=== PATIENT | female | born 1970 | race Caucasian/White ===

== ENCOUNTER 2025-03-07 15:26 | Emergency (ER) | payer OTHER, SELFPAY ==
[2025-03-07 15:27] VITALS: BP 130/100; PULSE 94; RESP 16; TEMP 36.7; O2SAT 100; BMI 30.4
--- NOTE | 2025-03-07 15:51 | EX.ED.DYSGE1 ---
HPI <QAMAR Walden - Last Filed: 03/07/25 16:23> History of Present Illness Chief Complaint: Rash Narrative Narrative: 54-year-old female presents with a rash that started 2 weeks ago. Her skin will feel hot and itchy and then she will develop a red raised area that looks like hives. Her skin will go completely back to normal within an hour or so unless she has scratched it to the point left a braydon. She gets these areas of rash all over her body. It feels like when she had stress-induced hives years ago but she states she is not currently stressed. She has been taking pantoprazole for years and is on no other medications. Denies other new exposures. Denies fever chills nausea vomiting or chest pain or shortness of breath. PFSH <QAMAR Walden - Last Filed: 03/07/25 16:23> [facility] Medical History (Updated 03/07/25 @ 15:58 by QAMAR Walden) Stomach ulcer Renal agenesis Home Medications ?Medication ?Instructions ?Recorded ?Last Taken ?Type pantoprazole 40 mg tablet,delayed 40 mg PO DAILY 03/07/25 Unknown History release Allergy/AdvReac Type Severity Reaction Status Date / Time aspirin Allergy Rash Verified 05/27/15 17:59 codeine Allergy Rash Verified 05/27/15 17:59 Surgical History (Updated 03/07/25 @ 15:46 by Phuong Lai) Hx of left knee surgery Hx of cervical spine surgery Hx of cholecystectomy Social History Smoking Status: Current every day smoker tobacco type: e-cigarettes ROS <QAMAR Walden - Last Filed: 03/07/25 16:23> ROS ED ROS Narrative Constitutional: Negative for fever, chills, malaise. CVS: Negative for chest pain. Respiratory: Negative for shortness of breath. GI: Negative for abdominal pain, nausea, vomiting, diarrhea. EXAM <QAMAR Walden - Last Filed: 03/07/25 16:23> Physical Exam Narrative Exam Narrative: CONST: Patient sitting in no acute distress. EYES: Normal inspection. ENT: Normal inspection, moist mucous membranes. NECK: Normal inspection. RESP: No respiratory distress, CTAB. CVS: Regular rate and rhythm, no murmur, no gallop. SKIN: Scattered red raised area that look like urticaria with overlying excoriations across her neck thorax and upper extremities. No significant erythema or tenderness. No bullae. No lymphangitic streaking. No skin sloughing. EXTREMITIES: Normal appearance. NEURO: Alert and answering questions appropriately. PSYCH: Normal affect. Const Vital Signs: 03/07/25 15:27 Temperature 98.1 F Temperature Source Oral Pulse Rate 94 Respiratory Rate 16 Blood Pressure 130/100 H Blood Pressure Mean 110 Pulse Ox 100 Oxygen Delivery Method Room Air <Dr. Miguel Regalado, - Last Filed: 03/07/25 16:11> Physical Exam Const Vital Signs: 03/07/25 15:27 Temperature 98.1 F Temperature Source Oral Pulse Rate 94 Respiratory Rate 16 Blood Pressure 130/100 H Blood Pressure Mean 110 Pulse Ox 100 Oxygen Delivery Method Room Air MDM <QAMAR Walden - Last Filed: 03/07/25 16:23> [facility] MDM Narrative Medical decision making narrative: Patient has hives over the last 2 weeks. No clear exposure. No new medications. She states they come and go. She looks well nontoxic. Vital signs stable. Exam is consistent with urticaria. She has no systemic symptoms. She was treated with IM Kenalog and should continue [id number] allergy medication as needed. She was discharged in stable condition. <Dr. Miguel Regalado, - Last Filed: 03/07/25 16:11> [facility] Treatment and Re-Evaluation :: I have personally performed a face to face assessment of the patient and have reviewed the SEAN Note. I performed a substantive portion of the visit including all aspects of the following. My carpio findings include: History: Patient presents with hives that began 2 weeks ago. Patient states they are constant. Patient states they are generalized. Patient states they are very pruritic. Patient states she applied hydrocortisone cream which seemed to help. Patient states she ALSO took some Benadryl which seemed to help. Patient denies any new soaps, foods, shampoos, laundry detergents, or fabric softeners. Patient denies any other new exposures. Patient denies any difficulty breathing or difficulty swallowing. Exam: Vital signs are stable. Patient is afebrile. Patient is in no acute distress. Oral mucosa is pink and moist. Oropharynx is clear. Airway is patent. Neck is supple. Trachea is midline. There is no JVD or lymphadenopathy. Heart was regular rate and rhythm. Lungs are clear and equal bilaterally. Abdomen is soft. Bowel sounds are normal. There is no tenderness. Skin is warm and dry. There are diffuse patchy urticaria noted. There are no vesicles or pustules. There are no petechia noted. There is no involvement of mucous membranes. There is no involvement of the palms. Medical Decision Making: The patient was advised that this is an urticarial rash. Patient was given an injection of Kenalog here. Patient was instructed to use Claritin, Zyrtec, or Benadryl as needed for itching. Patient was instructed to use hydrocortisone cream as needed. Patient was instructed to follow-up with her primary care physician in 5 to 7 days. Patient was advised she may need to see an cancer registry coordinator to determine what is the cause of her allergy. Patient understood and was agreeable with plan. All questions were answered. Discharge Plan Triage Chief Complaint: Rash ED Midlevel Provider: Shahnaz Parnell ED Provider: Miguel Regalado Dx/Rx/DC Orders Clinical Impression: Urticaria Instructions: ED Hives (Adult) Prescriptions: No Action pantoprazole 40 mg tablet,delayed release (DR/EC) 40 mg PO DAILY Primary Care Provider: Care Physician,No Primary Referrals: Maicol Bird MD [Non-Staff] - Activity Restrictions/Additional Instructions: You can continue Benadryl every 6 hours as needed. Follow-up with your primary care doctor and if symptoms persist you may need to get allergy testing. Print Language: Swazi Disposition Disposition: Home, Self Care
[2025-03-07] MEDS: Triamcinolone Acetonide 40 MG/ML Vial IM (16:19)
[2025-03-07 16:23] VITALS: BP 146/76; PULSE 72; RESP 16; TEMP 36.8; O2SAT 100
== END 2025-03-07 16:38 | disposition home or self-care (01) ==
PROVIDERS: Emergency Provider Emergency Medicine; Visit Provider Emergency Medicine
DX: L50.9 Urticaria, unspecified (principal); Z79.899 Other long term (current) drug therapy; F17.290 Nicotine dependence, other tobacco product, uncomplicated
CPT/HCPCS: 96372; 99282

== ENCOUNTER 2025-04-13 12:42 | Emergency (ER) | payer OTHER, SELFPAY ==
[2025-04-13 12:43] VITALS: BP 151/91; PULSE 99; RESP 16; TEMP 36.6; O2SAT 100; BMI 29.7
[2025-04-13 13:43] LABS: Absolute Lymphocyte Count 2.56 X10^3/uL (0.83-4.51); Absolute Neutrophil Count 7.5 X10^3/uL (2.0-7.7); Basophil# 0.07 X10^3/uL; Basophil% 0.6 % (0-1); Eosinophil# 0.59 X10^3/uL; Eosinophils% 4.9 % (0-5); Hematocrit 40.2 % (37-47); Hemoglobin 13.6 g/dL (12.0-15.0); Lymphocyte # 2.56 X10^3/ul (0.83-4.51); Lymphocyte % 21.5 % (19-41); Mean Corp Hgb Conc 33.8 g/dL (32-36); Mean Corpuscular Hgb 32.5 pg (27.0-32.0); Mean Corpuscular Volume 95.9 fL (81-99); Mean Platelet Vol. 9.4 fl (6.2-12.0); Monocyte# 1.19 X10^3/uL; NRBC Flagged by Analyzer 0 % (0-5); Neutrophil # 7.49 X10^3/uL (2.7-7.7); Neutrophil % 62.7 % (47-70); Platelet Count 280 K/mm3 (150-450); RBC Distribution Width CV 12.9 % (11.6-14.6); RBC Distribution Width SD 45.6 fl (35.1-43.9); Red Blood Count 4.19 M/mm3 (4.2-5.4); White Blood Count 11.9 K/mm3 (4.4-11.0)
--- NOTE | 2025-04-13 13:51 | ED.VIS.GI ---
HPI <QAMAR Cornell - Last Filed: 04/13/25 19:37> HPI - GI History of Present Illness Chief Complaint: Abd Pain Narrative Narrative: Patient presenting today with epigastric and right upper quadrant abdominal pain she has had over the past month. She reports that she has been in pain consistently but has had about 6 episodes of, pain attacks where her pain will be severe and then subside. Nothing seems to make her pain worse. She does admit to alcohol use, she drinks about a sixpack of twisted teas about 3 times per week. She also endorses a history of a gastric ulcer several years ago. She is supposed to be taking Protonix but did not feel like it was helping so she discontinued taking it. Additionally, she reports dark-colored stools over the past month. However, she thinks this is due to a herbal supplement that she has been taking. She denies history of GI bleed. She is on no blood thinners. Previous abdominal surgeries include cholecystectomy about 5 years ago. PFSH <QAMAR Cornell - Last Filed: 04/13/25 19:37> [facility] Medical History Stomach ulcer Renal agenesis Home Medications ?Medication ?Instructions ?Recorded ?Last Taken ?Type famotidine 20 mg tablet (Acid 20 mg PO DAILY 04/13/25 04/13/25 History Controller) fexofenadine 180 mg tablet 180 mg PO DAILY 04/13/25 04/13/25 History (Elli Hives) ibuprofen 200 mg tablet (Advil) 400 mg PO Q6H PRN fever or pain 04/13/25 04/13/25 History ondansetron 4 mg disintegrating 4 mg PO Q8H PRN PRN Nausea #10 tabs 04/13/25 Unknown Rx tablet Allergy/AdvReac Type Severity Reaction Status Date / Time aspirin Allergy Rash Verified 04/13/25 12:43 codeine Allergy Rash Verified 04/13/25 12:43 Surgical History Hx of left knee surgery Hx of cervical spine surgery Hx of cholecystectomy Social History Smoking Status: Current every day smoker tobacco type: e-cigarettes ROS <QAMAR Cornell - Last Filed: 04/13/25 19:37> ROS ED Constitutional Constitutional ED: Denies chills or fever(s) Cardiovascular Cardiovascular: Denies chest pain Respiratory/Chest Respiratory/Chest: Denies dyspnea Gastrointestinal Gastrointestinal: Reports abdominal pain, nausea and vomiting; Denies diarrhea Genitourinary Genitourinary ED: Denies dysuria, hematuria or urinary urgency Musculoskeletal Musculoskeletal: Denies arthralgias or myalgias EXAM <QAMAR Cornell - Last Filed: 04/13/25 19:37> Physical Exam Const Vital Signs: 04/13/25 12:43 04/13/25 14:43 04/13/25 15:33 Temperature 97.9 F 98.3 F Temperature Source Oral Pulse Rate 99 88 86 Respiratory Rate 16 12 12 Blood Pressure 151/91 H 147/82 H 141/88 H Blood Pressure Mean 111 103 105 Pulse Ox 100 97 98 Oxygen Delivery Method Room Air Room Air Positive well nourished, well developed and no apparent distress General Appearance ED: well developed HEENT Reports normocephalic and head/scalp atraumatic Mouth ED: Yes moist mucous membranes normal Eyes PERRL and EOMs intact bilaterally Neck full ROM and supple Chest Wall inspection of chest normal Resp normal respiratory effort and clear to auscultation bilaterally Cardio regular rate and regular rhythm GI soft to palpation, non-distended and no masses GI Narrative: Tenderness to palpation to the right upper quadrant and epigastrium. Palpation: Negative for guarding, rigid, hepatomegaly or splenomegaly Back/Spine normal ROM and normal to inspection Extremity normal to inspection and full ROM Neuro oriented x3, CN's II-XII intact bilaterally, moves all extremities, no focal motor deficits and no sensory deficits noted Sensorium / Orientation: awake and alert Psych mental status grossly normal and thought process normal Skin no rashes or lesions noted and no wounds <Dr. Raphael Cheng MD - Last Filed: 04/13/25 20:20> Physical Exam Const Vital Signs: 04/13/25 12:43 04/13/25 14:43 04/13/25 15:33 Temperature 97.9 F 98.3 F Temperature Source Oral Pulse Rate 99 88 86 Respiratory Rate 16 12 12 Blood Pressure 151/91 H 147/82 H 141/88 H Blood Pressure Mean 111 103 105 Pulse Ox 100 97 98 Oxygen Delivery Method Room Air Room Air [facility] <QAMAR Cornell - Last Filed: 04/13/25 19:37> [facility] Narrative Medical decision making narrative: Patient presenting today with epigastric and right upper quadrant pain that has been ongoing for about a month. She does have associated nausea and vomiting off and on. She has a history of a cholecystectomy. She does admit to frequent alcohol use. Labs were obtained, WBC is elevated at 11.9, AST mildly elevated at 33. She was originally given Toradol which did not improve her symptoms, she was then given a GI cocktail here which did improve her symptoms. I suspect she likely has gastritis. She is supposed to be taking Protonix but has not been taking it recently. Recommended she begin taking her Protonix again and I will refer her to GI. Additionally, she reported that she was having black-colored stools over the past month, she thinks it is because of this herbal supplement she has been taking. I did perform a rectal exam with a nurse in the room. There was no stool when I perform the exam for us to test on a Hemoccult. She did not have any bowel movements here. However, her hemoglobin is 13.6, lower suspicion for GI bleed. She does not have any urinary symptoms to indicate a UTI. Recommended she follow-up with GI and she will be discharged home in stable condition. Dr. Cheng: I have personally performed a face to face assessment of the patient and have reviewed the SEAN Note. I performed a substantive portion of the visit including all aspects of the following. My carpio findings include: History is [ Remarkable for cholecystectomy, many years ago who presents with upper abdominal pain epigastric right upper quadrant that does not radiate through to her back. This associate with nausea and vomiting. She denies coffee-ground emesis or hematemesis. Friend thought it may have appeared like coffee grounds yesterday. She does admit to alcohol use. She denies cardiac or respiratory symptoms. She denies black or maroon-colored stool. She denies mucus or bright red blood in her stool.] Exam is vital signs are noted and remarkable for elevated blood pressure. Patient's BMI is 29.8. She does not appear in any significant discomfort. HEENT exam is remarkable dry mucosa. Lungs are clear to auscultation. Heart is regular. Rate is normal. There is no murmur, gallop or rub. Abdomen is soft minimal tenderness there is no guarding or rebound tenderness. Negative clinical De La Garza sign. No evidence of umbilical or ventral hernia. Alert oriented x 3. Medical Decision Making: Patient with upper abdominal pain which may represent alcoholic gastritis, duodenitis, alcoholic liver disease abdominal pain of unknown etiology doubt choledocholithiasis patient was initially treated with ketorolac. There was no improvement. Subsequent was given a GI cocktail. Her workup included a CBC, comprehensive metabolic panel and lipase. Other additions or changes: Prior records were reviewed. Remarkable for cholecystitis, alcohol use Lab Data Labs: Laboratory Results - last 24 hr 04/13/25 13:31 WBC 11.9 H RBC 4.19 L Hgb 13.6 Hct 40.2 MCV 95.9 MCH 32.5 H MCHC 33.8 RDW Std Deviation 45.6 H RDW Coeff of Anita 12.9 Plt Count 280 MPV 9.4 Immature Gran % (Auto) 0.300 Neut % (Auto) 62.7 Lymph % (Auto) 21.5 [place] % (Auto) 10.0 Eos % (Auto) 4.9 Baso % (Auto) 0.6 Absolute Neuts (auto) 7.5 Absolute Lymphs (auto) 2.56 Nucleated RBC % 0 Sodium 141 Potassium 4.2 Chloride 102 Carbon Dioxide 25.1 Anion Gap 14 BUN 17 Creatinine 1.06 Estim Creat Clear Calc 60.00 Est GFR (MDRD) Non-Af 63 BUN/Creatinine Ratio 16.4 Glucose 91 Calcium 9.8 Total Bilirubin 0.55 AST 33 H ALT 20 Alkaline Phosphatase 109 H Total Protein 7.1 Albumin 4.2 Globulin 2.9 Albumin/Globulin Ratio 1.5 Lipase 54 <Dr. Raphael Cheng MD - Last Filed: 04/13/25 20:20> [facility] MDM Narrative Medical decision making narrative: Dr. Chun: I have personally performed a face to face assessment of the patient and have reviewed the SEAN Note. I performed a substantive portion of the visit including all aspects of the following. My carpio findings include: History is [ Remarkable for cholecystectomy, many years ago who presents with upper abdominal pain epigastric right upper quadrant that does not radiate through to her back. This associate with nausea and vomiting. She denies coffee-ground emesis or hematemesis. Friend thought it may have appeared like coffee grounds yesterday. She does admit to alcohol use. She denies cardiac or respiratory symptoms. She denies black or maroon-colored stool. She denies mucus or bright red blood in her stool.] Exam is vital signs are noted and remarkable for elevated blood pressure. Patient's BMI is 29.8. She does not appear in any significant discomfort. HEENT exam is remarkable dry mucosa. Lungs are clear to auscultation. Heart is regular. Rate is normal. There is no murmur, gallop or rub. Abdomen is soft minimal tenderness there is no guarding or rebound tenderness. Negative clinical De La Garza sign. No evidence of umbilical or ventral hernia. Alert oriented x 3. Medical Decision Making: Patient with upper abdominal pain which may represent alcoholic gastritis, duodenitis, alcoholic liver disease abdominal pain of unknown etiology doubt choledocholithiasis patient was initially treated with ketorolac. There was no improvement. Subsequent was given a GI cocktail. Her workup included a CBC, comprehensive metabolic panel and lipase. Other additions or changes: Prior records were reviewed. Remarkable for cholecystitis, alcohol use History & Record Review Additional record(s) reviewed:: Prior outpatient record, Prior ED visit and Prior labs Lab Data Attestation: I reviewed the patient's lab results. Lab results narrative: White count slightly elevated 11.9 thousand with no shift. H&H is and indices are normal. Comprehensive metabolic panel reveals slight elevation of alkaline phosphatase at 109 and AST is elevated 33. Patient does admit to alcohol use. Lipase is normal. Labs: Laboratory Results - last 24 hr 04/13/25 13:31 WBC 11.9 H RBC 4.19 L Hgb 13.6 Hct 40.2 MCV 95.9 MCH 32.5 H MCHC 33.8 RDW Std Deviation 45.6 H RDW Coeff of Anita 12.9 Plt Count 280 MPV 9.4 Immature Gran % (Auto) 0.300 Neut % (Auto) 62.7 Lymph % (Auto) 21.5 [place] % (Auto) 10.0 Eos % (Auto) 4.9 Baso % (Auto) 0.6 Absolute Neuts (auto) 7.5 Absolute Lymphs (auto) 2.56 Nucleated RBC % 0 Sodium 141 Potassium 4.2 Chloride 102 Carbon Dioxide 25.1 Anion Gap 14 BUN 17 Creatinine 1.06 Estim Creat Clear Calc 60.00 Est GFR (MDRD) Non-Af 63 BUN/Creatinine Ratio 16.4 Glucose 91 Calcium 9.8 Total Bilirubin 0.55 AST 33 H ALT 20 Alkaline Phosphatase 109 H Total Protein 7.1 Albumin 4.2 Globulin 2.9 Albumin/Globulin Ratio 1.5 Lipase 54 Discharge Plan Triage Chief Complaint: Abd Pain ED Midlevel Provider: Carly Deluca ED Provider: Raphael Cheng Dx/Rx/DC Orders Clinical Impression: Abdominal pain, Nausea & vomiting Instructions: Abdominal Pain, ED Vomiting (Adult) Prescriptions: New ondansetron 4 mg tablet,disintegrating 4 mg PO Q8H PRN PRN (Reason: Nausea) Qty: 10 0RF No Action fexofenadine [Elli Hives] 180 mg tablet 180 mg PO DAILY famotidine [Acid Controller] 20 mg tablet 20 mg PO DAILY ibuprofen [Advil] 200 mg tablet 400 mg PO Q6H PRN (Reason: fever or pain) Primary Care Provider: Care Physician,No Primary Referrals: Friend,DO Eder [Med Staff - Active Staff] - 5-7 Days Care Physician,No Primary [Primary Care Provider] - Activity Restrictions/Additional Instructions: Follow-up with GI and return for any other concerns. Print Language: Stateless Disposition Disposition: Home, Self Care Discharge Date/Time: 04/13/25 15:37
[2025-04-13] MEDS: Ketorolac 15 MG/ML Vial IV (13:53)
[2025-04-13] MEDS: Ondansetron 4 MG/2 ML Vial IV (13:53)
--- OUTSIDE RECORDS SUMMARY | 2025-04-13 13:55 | XMS RPT_ITS | CCD ---
Author Organization [facility] Care Team Providers Care Supervisor Felling Bucking Name Role Phone Tom Wiggins Primary Care Provider PROVIDER, UNKNOWN Referring Unavailable Lizett De La Paz Attending Unavailable Petrilla, Tom Primary Care Unavailable Petrilla, Tom Attending Unavailable PROVIDER, UNKNOWN Referring Unavailable Petrilla, Tom Primary Care Unavailable PROVIDER, UNKNOWN Referring Unavailable Petrilla, Tom Primary Care Unavailable Petrilla, Tom Attending Unavailable PROVIDER, UNKNOWN Referring Unavailable KAMILLA FLOWERS Attending Unavailable Naomia, Tom Primary Care Unavailable PROVIDER, UNKNOWN Referring Unavailable KAMILLA FLOWERS Attending Unavailable Petrilla, Tom Primary Care Unavailable JARACH, MAZEN Referring Unavailable JARACH, MAZEN Primary Care Unavailable JARACH, MAZEN Referring Unavailable JARACH, MAZEN Primary Care Unavailable JARACH, MAZEN Referring Unavailable PETRILLA, TOM F Primary Care Unavailable MaribethTom law DO F Primary Care Provider Dr. Miguel Regalado DO Emergency Provider Care Physician, No Primary Primary Care Provider Unavailable Miguel Regalado Attending Unavailable Care Physician, No Primary Primary Care Unava ilable Allergies Allergy Classification Reported Allergen(s) Allergy Type Date of Onset Reaction(s) Facility Aluminum aspirin (4 sources) [facility]um [facility]) [facility] Substance [facility] Opio[facility] Agonists (4 sources) Codeine Drug All[facility] (6 sources) Aluminum aspirin; Translations: [ASPIRIN] Drug Allergy 5 [place] (7 sources) Codeine; Translations: [CODEINE] Drug Allergy 5 [place] (6 sources) Latex; Translations: [LATEX] Propensity to adverse reactions to drug 5 [place] (1 source) Aspirin Drug Allergy 5 [facility] (1 source) Aspirin Drug Allergy 5 [facility] (1 source) Codeine Drug Allergy 5 [facility] Medications Current Medications Medication Drug Class(es) Dates Sig (Normalized) Sig (Original) acetaminophen 325 mg / HYDROcodone bitartrate 5 mg oral tablet (5 sources) Opioid Agonist Start: 02-22-2021 End: 02-25-2021 HYDROcodone-acetam inophen (NORCO) 5-325 MG per tablet Indications: RUQ abdominal pain Take 1 tablet by mouth every 6 hours as needed for Pain for up to 3 days. Intended supply: 5 days. Take lowest dose possible to manage pain 20 tablet 0 02/22/2021 02/25/2021 Active Start: 05-27-2015 End: 03-07-2025 Hydrocodone-Acetaminophen 1 TABLET tablet Discontinued 1 - 2 {tbl} PO EVERY 4 HOURS NEEDED as needed for Pain May 27, 2015 12:00am March 07, 2025 3:44pm acetaminophen 325 mg / oxyCODONE hydrochloride 5 mg oral tablet (1 source) Opioid Agonist Start: 03-02-2021 End: 03-07-2021 take 1 tablet by mouth every six hours as needed for pain oxyCODONE-acetaminophen (PERCOCET) 5-325 MG per tablet Indications: Gallbladder sludge , Biliary colic Take 1 tablet by mouth every 6 hours as needed for Pain for up to 5 days. 10 tablet 0 03/02/2021 03/07/2021 Active [id number] 200 actuat albuterol 0.09 mg/actuat metered dose inhaler (1 source) beta2-Adrenergic Agonist Start: 01-07-2022 take 2 puff(s) by inhalation four times daily as needed for wheezing albuterol sulfate HFA (VENTOLIN HFA) 108 (90 Base) MCG/ACT inhaler Inhale 2 puffs into the lungs 4 times daily as needed for Wheezing 18 g 0 01/07/2022 Active ALPRAZolam 0.25 mg disintegrating oral tablet (1 source) Benzodiazepine Start: 03-02-2021 ALPRAZolam (NIRAVAM) dissolvable tablet 0.25 mg calcium chloride 0.0014 meq/ml / potassium chloride 0.004 meq/ml / sodium chloride 0.103 meq/ml / sodium lactate 0.028 meq/ml injectable solution (1 source) Start: 03-02-2021 lactated ringers infusion celecoxib 200 mg oral capsule (2 sources) Nonsteroidal Anti-inflammatory Drug Start: 06-23-2022 take 1 capsule by mouth once daily celecoxib (CELEBREX) 200 MG capsule Take 1 capsule by mouth daily 60 capsule 0 06/23/2022 Active cephalexin 500 mg oral capsule (2 sources) Cephalosporin Antibacterial Start: 08-11-2022 End: 08-16-2022 take 1 capsule by mouth three times daily cephALEXin (KEFLEX) 500 MG capsule Take 1 capsule by mouth 3 times daily for 5 days 15 capsule 0 08/11/2022 08/16/2022 Active 1 ml diphenhydrAMINE hydrochloride 50 mg/ml cartridge (1 source) Histamine-1 Receptor Antagonist Start: 03-02-2021 End: 03-02-2021 diphenhydrAMINE (BENADRYL) injection 12.5 mg 1 ml hydrALAZINE hydrochloride 20 mg/ml injection (1 source) Arteriolar Vasodilator Start: 03-02-2021 hydrALAZINE (APRESOLINE) injection 5 mg 1 ml HYDROmorphone hydrochloride 1 mg/ml cartridge (4 sources) Opioid Agonist Start: 03-02-2021 HYDROmorphone (DILAUDID) injection 1 mg Start: 03-02-2021 HYDROmorphone (DILAUDID) injection 0.5 mg Start: 03-02-2021 HYDROmorphone (DILAUDID) injection 0.25 mg labetalol hydrochloride 5 mg/ml injectable solution (1 source) beta-Adrenergic Jody Start: 03-02-2021 labetalol (NORMODYNE;TRANDATE) injection 5 mg levoFLOXacin 500 mg oral tablet (1 source) Quinolone Antimicrobial Start: 10-08-2020 End: 10-18-2020 take 1 tablet by mouth once daily levoFLOXacin (LEVAQUIN) 500 MG tablet Take 1 tablet by mouth daily for 10 days 10 tablet 0 10/08/2020 10/18/2020 Active 10 ml lidocaine hydrochloride 10 mg/ml injection (1 source) Antiarrhythmic, Amide Local Anesthetic Start: 03-02-2021 End: 03-02-2021 lidocaine PF 1 % injection 1 mL meloxicam 15 mg oral tablet (2 sources) Nonsteroidal Anti-inflammatory Drug Start: 11-17-2021 take 1 tablet by mouth once daily meloxicam (MOBIC) 15 MG tablet Take 1 tablet by mouth daily 30 tablet 3 11/17/2021 Active 1 ml meperidine hydrochloride 25 mg/ml cartridge (1 source) Opioid Agonist Start: 03-02-2021 meperidine (DEMEROL) injection 12.5 mg 2 ml ondansetron 2 mg/ml injection (6 sources) Serotonin-3 Receptor Antagonist Start: 03-02-2021 End: 03-02-2021 ondansetron (ZOFRAN) injection 4 mg Start: 02-22-2021 End: 02-22-2021 ondansetron (ZOFRAN) injecti on 4 mg Start: 02-22-2021 take 1 tablet by jad th three times daily as needed for nausea ondansetron (ZOFRAN) 4 MG tablet Take 1 tablet by mouth 3 times daily as needed for Nausea or Vomiting 15 tablet 0 02/22/2021 Suspended oxyCODONE (1 source) Opioid Agonist Start: 03-02-2021 End: 03-02-2021 oxyCODONE (ROXICODONE) immediate release tablet 5 mg pantoprazole 40 mg delayed release oral tablet (1 source) Proton Pump Inhibitor Start: 03-07-2025 take 1 tablet by mouth once daily Pantoprazole 40 mg tablet,delayed release (DR/EC) Active 40 mg PO DAILY March 07, 2025 12:00am phenazopyridine hydrochloride 100 mg oral tablet (2 sources) Start: 08-11-2022 End: 08-14-2022 take 1 tablet by mouth three times daily as needed for pain phenazopyridine (PYRIDIUM) 100 MG tablet Take 1 tablet by mouth 3 times daily as needed for Pain (dysuria) 10 tablet 0 08/11/2022 08/14/2022 Active Start: 08-11-2022 End: 08-11-2022 phenazopyridine (PYRIDIUM) t ablet 200 mg predniSONE 50 mg oral tablet (1 source) Start: 01-07-2022 End: 01-12-2022 take 1 tablet by mouth once daily predniSONE (DELTASONE) 50 MG tablet Take 1 tablet by mouth daily for 5 days 5 tablet 0 01/07/2022 01/12/2022 Active 1 ml promethazine hydrochloride 25 mg/ml injection (1 source) Phenothiazine Start: 03-02-2021 End: 03-02-2021 promethazine (PHENERGAN) injection 6.25 mg sodium chloride flush 0.9 % injection 3 mL (2 sources) Start: 08-10-2022 sodium chlorid e flush 0.9 % injection 3 mL Start: 02-22-2021 sodium chlorid e flush 0.9 % injection 3 mL tiZANidine 4 mg oral tablet (2 sources) Central alpha-2 Adrenergic Agonist Start: 06-23-2022 take 1 tablet by mouth three times daily tiZANidine (ZANAFLEX) 4 MG tablet Take 1 tablet by mouth 3 times daily 21 tablet 0 06/23/2022 Active Completed/Discontinued Medications Medication Drug Class(es) Dates Sig (Normalized) Sig (Original) acetaminophen 500 mg oral tablet (10 sources) Start: 03-02-2021 End: 03-02-2021 acetaminophen (TYLENOL) tablet 1,000 mg take 1 tablet by jad th every six hours as needed for pain acetaminophen (TYLENOL) 500 MG tablet Ta ke 500 mg by mouth every 6 hours as needed for Pain 0 Active take 650 mg rectal r oute every four hours as needed for fever acetaminophen (TYLENOL) [address] 650 mg rectally every 4 hours as needed for Fever 0 Active ceFAZolin (ANCEF) 2000 mg in dextrose 5 % 100 mL IVPB (1 source) Start: 03-02-2021 End: 03-02-2021 ceFAZolin (ANCEF) 2000 mg in dextrose 5 % 100 mL IVPB Dexamethasone (1 source) Corticosteroid Start: 01-07-2022 End: 01-07-2022 dexamethasone (DECADRON) tablet 6 mg famotidine 20 mg oral tablet (1 source) Histamine-2 Receptor Antagonist Start: 03-02-2021 End: 03-02-2021 famotidine (PEPCID) tablet 20 mg ibuprofen 600 mg oral tablet (5 sources) Nonsteroidal Anti-inflammatory Drug Start: 08-10-2022 End: 08-10-2022 ibuprofen (ADVIL;MOTRIN) tablet 600 mg take 1 tablet by jad th every six hours as needed for pain ibuprofen (ADVIL;MOTRIN) 800 MG tablet T jacob 800 mg by mouth every 6 hours as needed for Pain 0 Suspended indocyanine green (IC-GREEN) syringe 2.5 mg (1 source) Start: 03-02-2021 End: 03-02-2021 indocyanine green (IC-GREEN) syringe 2.5 mg iopamidol (ISOVUE-370) 76 % injection 75 mL (1 source) Start: 02-22-2021 End: 02-22-2021 iopamidol (ISOVUE-370) 76 % injection 75 mL 1 ml morphine sulfate 4 mg/ml cartridge (1 source) Opioid Agonist Start: 02-22-2021 End: 02-22-2021 morphine (PF) injection 4 mg 50 ml sodium chloride 9 mg/ml injection (6 sources) Start: 08-10-2022 End: 08-11-2022 0.9 % sodium chloride bolus Start: 03-02-2021 sodium chlorid e flush 0.9 % injection 5-40 mL Start: 03-02-2021 End: 03-02-2021 0.9 % sodium chloride bolus Start: 03-02-2021 0.9 % sodium c hloride infusion Start: 03-02-2021 sodium chlorid e flush 0.9 % injection 5-40 mL Start: 02-22-2021 End: 02-22-2021 0.9 % sodium chloride bolus Problems Active Problems Problem Classification Problem Date Documented Da te Episodic/Chronic Abdominal pain (3 sources) Right upper quadrant pain; Translations: [Right upper quadrant pain] Episodic Allergic reactions (7 sources) Allergy status to narcotic agent status; Translations: [Allergy status to analgesic agent status] Onset: 08-10-2022 Episodic Disorders of lipid metabolism (11 sources) Hypercholesterolemi a; Translations: [Pure hypercholesterolemi a, unspecified] Onset: 01-04-2021 01-04-2021 Chronic Esophageal disorders (6 sources) Gastro-esophageal reflux disease with esophagitis; Translations: [Gastroesophageal reflux disease with esophagitis without hemorrhage] Onset: 12-21-2021 01-04-2022 Chronic Genitourinary symptoms and ill-defined conditions (2 sources) Frequency of micturition; Translations: [Frequency of micturition] Onset: 08-10-2022 Episodic Headache; including migraine (5 sources) Migraine; Translations: [Migraine, unspecified, not intractable, without status migrainosus] Onset: 10-23-2009 11-17-2021 Chronic Headache; including migraine (2 sources) Headache; including migraine; Translations: [Headache, unspecified] Onset: 01-27-2022 Other aftercare (2 sources) 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 long 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 mining 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 (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; Translations: [Other long wall mining 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 (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] Onset: 08-10-2022 Episodic Other screening for suspected conditions (not mental disorders or infectious disease) (2 sources) Encounter for screening mammogram for malignant neoplasm of breast; Translations: [Encntr screen mammogram for malignant neoplasm of breast] Onset: 08-01-2022 Episodic Other skin disorders (1 source) Rash and other nonspecific skin eruption; Translations: [Rash and other nonspecific skin eruption] Onset: 03-13-2025 Episodic Spondylosis; intervertebral disc disorders; other back problems (7 sources) Disorder of cervical spine; Translations: [Spondylopathy, unspecified] Onset: 10-23-2010 11-17-2021 Chronic Substance-related disorders (7 sources) Smoker; Translations: [Nicotine dependence, unspecified, uncomplicated] Onset: 11-17-2021 11-17-2021 Chronic Unclassified (1 source) Contact with and (suspected) exposure to COVID-19; Translations: [Contact with and (suspected) exposure to COVID-19] Onset: 08-10-2022 Unclassified (1 source) Low back pain, unspecified; Translations: [Low back pain, unspecified] Onset: 11-17-2021 Urinary tract infections (3 sources) Acute urinary tract infection; Translations: [Urinary tract infection, site not specified] Onset: 08-10-2022 Episodic Viral infection (2 sources) COVID-19; Translations: [COVID-19] Onset: 01-07-2022 Past or Other Problems Problem Classification Problem Date Documented Date Episodic/Chronic Biliary tract disease (15 sources) Biliary sludge; Translations: [Other specified diseases of gallbladder] Onset: 02-24-2021 Resolved: 11-17-2021 Episodic Other and unspecified benign neoplasm (7 sources) Adenomyomatosis of gallbladder; Translations: [Benign neoplasm of extrahepatic bile ducts] Onset: 02-24-2021 Resolved: 11-17-2021 Episodic Other upper respiratory infections (2 sources) Acute frontal sinusitis, unspecified; Translations: [Acute frontal sinusitis, unspecified] Onset: 01-27-2022 Episodic Residual codes; unclassified (9 sources) Family history of malignant neoplasm of breast in first degree relative; Translations: [Family history of malignant neoplasm of breast] Onset: 01-04-2021 01-04-2021 Episodic Residual codes; unclassified (9 sources) Maternal history of diabetes mellitus; Translations: [Family history of diabetes mellitus] Onset: 01-04-2021 01-04-2021 Episodic Residual codes; unclassified (4 sources) Family history of malignant neoplasm of ovary; Translations: [Family history of malignant neoplasm of ovary] Onset: 12-27-2021 12-27-2021 Episodic Residual codes; unclassified (2 sources) Other specified postprocedural states; Translations: [Other specified postprocedural states] Onset: 11-17-2021 Episodic Screening and history of mental health and substance abuse codes (10 sources) H/O: depression; Translations: [Personal history of other mental and behavioral disorders] Onset: 10-23-1994 01-04-2019 Episodic Spondylosis; intervertebral disc disorders; other back problems (4 sources) Neck pain; Translations: [Cervicalgia] Onset: 11-17-2021 Episodic Unclassified (1 source) Contact with and (suspected) exposure to COVID-19; Translations: [Contact with and (suspected) exposure to COVID-19] Onset: 08-10-2022 Unclassified (1 source) Low back pain, unspecified; Translations: [Low back pain, unspecified] Onset: 11-17-2021 Viral infection (3 sources) Disease caused by 2019-nCoV; Translations: [COVID-19] Onset: 12-21-2021 Resolved: 06-23-2022 Episodic Results Test Name Value Interpretation Reference Range Facility Emergency Department Summary on 03-07-2025 Emergency Department Summary [facility] Medical Records Department [address] [place] [address] Emergency Department Summary 03/07/25 MR#: [id number] Acct: [id number] Name: BRODYRADHAHEAVEN L Rep #: [id number] : 1970 54 From: Miguel Regalado DO PCP: Care Physician,No Primary Status:DEP ER Location: ED HPI History of Present Illness Chief Complaint: Rash Narrative Narrative: 54-year-old female presents with a rash that started 2 weeks ago. Her skin will feel hot and itchy and then she will develop a red raised area that looks like hives. Her skin will go completely back to normal within an hour or so unless she has scratched it to the point left a lizett. She gets these areas of rash all over her body. It feels like when she had stress-induced hives years ago but she states she is not currently stressed. She has been taking pantoprazole for years and is on no other medications. Denies other new exposures. Denies fever chills nausea vomiting or chest pain or shortness of breath. [facility] Medical History (Updated 03/07/25 @ 15:58 by QAMAR Walden) Stomach ulcer Renal agenesis Home Medications ???Medication ???Instructions ???Recorded ???Last Taken ???Type pantoprazole 40 mg tablet,delayed 40 mg PO DAILY 03/07/25 Unknown H istory release Allergy/AdvReac Type Severity Reaction Status Date / Time aspirin Allergy Rash Verified 05/27/15 17:59 codeine Allergy Rash Verified 05/27/15 17:59 Surgical History (Updated 03/07/25 @ 15:46 by Phuong Lai) Hx of left knee surgery Hx of cervical spine surgery Hx of cholecystectomy Social History Smoking Status: Current every day smoker tobacco type: e-cigarettes ROS ROS ED ROS Narrative Constitutional: Negative for fever, chills, malaise. CVS: Negative for chest pain. Respiratory: Negative for shortness of breath. GI: Negative for abdominal pain, nausea, vomiting, diarrhea. EXAM Physical Exam Narrative Exam Narrative: CONST: Patient sitting in no acute distress. EYES: Normal inspection. ENT: Normal inspection, moist mucous membranes. NECK: Normal inspection. RESP: No respiratory distress, CTAB. CVS: Regular rate and rhythm, no murmur, no gallop. SKIN: Scattered red raised area that look like urticaria with overlying excoriations across her neck thorax and upper extremities. No significant erythema or tenderness. No bullae. No lymphangitic streaking. No skin sloughing. EXTREMITIES: Normal appearance. NEURO: Alert and answering questions appropriately. PSYCH: Normal affect. Const Vital Signs: 03/07/25 15:27 Temperature 98.1 F Temperature Source Oral Pulse Rate 94 Respiratory Rate 16 Blood Pressure 130/100 H Blood Pressure Mean 110 Pulse Ox 100 Oxygen Delivery Method Room Air Physical Exam Const Vital Signs: 03/07/25 15:27 Temperature 98.1 F Temperature Source Oral Pulse Rate 94 Respiratory Rate 16 Blood Pressure 130/100 H Blood Pressure Mean 110 Pulse Ox 100 Oxygen Delivery Method Room Air [facility] Narrative Medical decision making narrative: Patient has hives over the last 2 weeks. No clear exposure. No new medications. She states they come and go. She looks well nontoxic. Vital signs stable. Exam is consistent with urticaria. She has no systemic symptoms. She was treated with IM Kenalog and should continue [id number] allergy medication as needed. She was discharged in stable condition. MDM Treatment and Re-Evaluation :: I have personally performed a face to face assessment of the patient and have reviewed the SEAN Note. I performed a substantive portion of the visit including all aspects of the following. My carpio findings include: History: Patient presents with hives that began 2 weeks ago. Patient states they are constant. Patient states they are generalized. Patient states they are very pruritic. Patient states she applied hydrocortisone cream which seemed to help. Patient states she ALSO took some Benadryl which seemed to help. Patient denies any new soaps, foods, shampoos, laundry detergents, or fabric softeners. Patient denies any other new exposures. Patient denies any difficulty breathing or difficulty swallowing. Exam: Vital signs are stable. Patient is afebrile. Patient is in no acute distress. Oral mucosa is pink and moist. Oropharynx is clear. Airway is patent. Neck is supple. Trachea is midline. There is no JVD or lymphadenopathy. Heart was regular rate and rhythm. Lungs are clear and equal bilaterally. Abdomen is soft. Bowel sounds are normal. There is no tenderness. Skin is warm and dry. There are diffuse patchy urticaria noted. There are no vesicles or pustules. There are no petechia noted. There is no involvement of mucous membranes. There is no involvemen (more content not included)... Normal [facility] FERMIN Fink 2022 [facility] DIAG W SUKHDEEP HOUSTON * * *Final Report* * * DATE OF EXAM: Aug 01 2023 2:02PM [id number] - [facility] FERMIN Lamb SUKHDEEP HOUSTON / PROCEDURE REASON: N64.4 * * * * Physician Interpretation * * * * RESULT: #[id number] - [facility] FERMIN Lamb SUKHDEEP HOUST[place] #[id number] - [facility] US BREAST LTD LT #[id number] - [facility] US BREAST LTD RT BILATERAL DIGITAL DIAGNOSTIC MAMMOGRAM TOMOSYNTHESIS WITH CAD: 08/01/2023 HISTORY: /SEE TECH NOTE pain bilateral / Bilateral Diagnostic Mammogram/ N64.4 N64.4 N64.4. RESULT: TECHNIQUE: The study was acquired using full field digital technology and interpreted from soft copy. Digital Breast Tomosynthesis (DBT) images were obtained and used to assist in the interpretation of this examination. Current study was also evaluated with a Computer Aided Detection (CAD). No prior exams were available for comparison. There are scattered areas of fibroglandular density. No significant masses, calcifications, or other findings are seen in either breast. IMPRESSION: INCOMPLETE: NEEDS ADDITIONAL IMAGING EVALUATION There is no abnormality seen in either breast to correspond with the pain, however, clinical correlation and ultrasound are recommended. LIMITED ULTRASOUND OF RIGHT BREAST: 08/01/2023 RESULT: No prior exams were available for comparison. Real-time ultrasound of the right breast 8-9 o'clock region was performed. Hernandez scale images of the real-time examination were reviewed. IMPRESSION: NEGATIVE There is no sonographic evidence of malignancy. There is no abnormality seen in the right breast to correspond with the pain, however, clinical correlation is recommended. LIMITED ULTRASOUND OF LEFT BREAST: 08/01/2023 RESULT: No prior exams were available for comparison. Real-time ultrasound of the left breast 3-4 o'clock region was performed. Hernandez scale images of the real-time examination were reviewed. IMPRESSION: NEGATIVE There is no sonographic evidence of malignancy. There is no abnormality seen in the left breast to correspond with the pain, however, clinical correlation is recommended. Return to annual mammogram screening schedule is recommended. Anuradha mitchell/gabo:08/01/2023 14:17:39 copy to: Fito QUIROGA, ph: [phone] Multiple national specialty organizations have released breast cancer screening guidelines for women at average risk for developing breast cancer - guidelines that are based on both evidence and opinion, yet differ on when to start and how often to screen for breast cancer. With representation from Breast Imaging, Internal Medicine, Women's Health, Family Medicine, and Medical/Surgical Oncology, the [facility] has carefully reviewed the data and reached the following consensus: 1) All women should engage in shared decision-making with their providers to decide when to start and how often to screen; 2) All women should have the opportunity to start screening mammography at age 40; 3) For women ages 45-55, we recommend annual screening mammograms; 4) For women ages 55 and over, we support both the transition from an annual to a biennial interval if this aligns more with patient's values and preferences, or continuation with annual screening; 5) All women should discuss with their providers when to stop screening mammograms. Commissary Worker(s): Kamila Cabrera, [facility]; RT Gonzalo(R)(M), [facility] OVERALL STUDY BIRADS: 1 Negative Digital Printer Operator: Gabo Transcribe Date/Time: Aug 01 2023 1:26P Dictated by: ANURADHA CALDERÓN MD This examination was interpreted and the report reviewed and electronically signed by: ANURADHA CALDERÓN MD on Aug 01 2023 2:17PM EST [id number] Normal [facility] US BREAST LTD LTon 08-01 [facility] US BREAST LTD LT * * *Final Report* * * DATE OF EXAM: Aug 01 2023 2:11PM [id number] - [facility] US BREAST LTD LT / PROCEDURE REASON: N64.4 * * * * Physician Interpretation * * * * #[id number] - [facility] DIAG W SUKHDEEP HOUSTON #[id number] - [facility] US BREAST LTD LT #[id number] - [facility] US BREAST LTD RT BILATERAL DIGITAL DIAGNOSTIC MAMMOGRAM TOMOSYNTHESIS WITH CAD: 08/01/2023 HISTORY: /SEE TECH NOTE pain bilateral / Bilateral Diagnostic Mammogram/ N64.4 N64.4 N64.4. RESULT: TECHNIQUE: The study was acquired using full field digital technology and interpreted from soft copy. Digital Breast Tomosynthesis (DBT) images were obtained and used to assist in the interpretation of this examination. Current study was also evaluated with a Computer Aided Detection (CAD). No prior exams were available for comparison. There are scattered areas of fibroglandular density. No significant masses, calcifications, or other findings are seen in either breast. IMPRESSION: INCOMPLETE: NEEDS ADDITIONAL IMAGING EVALUATION There is no abnormality seen in either breast to correspond with the pain, however, clinical correlation and ultrasound are recommended. LIMITED ULTRASOUND OF RIGHT BREAST: 08/01/2023 RESULT: No prior exams were available for comparison. Real-time ultrasound of the right breast 8-9 o'clock region was performed. Hernandez scale images of the real-time examination were reviewed. IMPRESSION: NEGATIVE There is no sonographic evidence of malignancy. There is no abnormality seen in the right breast to correspond with the pain, however, clinical correlation is recommended. LIMITED ULTRASOUND OF LEFT BREAST: 08/01/2023 RESULT: No prior exams were available for comparison. Real-time ultrasound of the left breast 3-4 o'clock region was performed. Hernandez scale images of the real-time examination were reviewed. IMPRESSION: NEGATIVE There is no sonographic evidence of malignancy. There is no abnormality seen in the left breast to correspond with the pain, however, clinical correlation is recommended. Return to annual mammogram screening schedule is recommended. Anuradha mitchell/gabo:08/01/2023 14:17:39 copy to: Fito QUIROGA, ph: [phone] Multiple national specialty organizations have released breast cancer screening guidelines for women at average risk for developing breast cancer - guidelines that are based on both evidence and opinion, yet differ on when to start and how often to screen for breast cancer. With representation from Breast Imaging, Internal Medicine, Women's Health, Family Medicine, and Medical/Surgical Oncology, the [facility] has carefully reviewed the data and reached the following consensus: 1) All women should engage in shared decision-making with their providers to decide when to start and how often to screen; 2) All women should have the opportunity to start screening mammography at age 40; 3) For women ages 45-55, we recommend annual screening mammograms; 4) For women ages 55 and over, we support both the transition from an annual to a biennial interval if this aligns more with patient's values and preferences, or continuation with annual screening; 5) All women should discuss with their providers when to stop screening mammograms. Commissary Worker(s): Kamila Cabrera, [facility]; Terri Rodriguez, RT(R)(M), [facility] OVERALL STUDY BIRADS: 1 Negative Digital Printer Operator: Gabo Transcribe Date/Time: Aug 01 2023 1:26P Dictated by : ANURADHA CALDERÓN MD This examination was interpreted and the report reviewed and electronically signed by: ANURADHA CALDERÓN MD on Aug 01 2023 2:17PM EST [id number] Normal [facility] US BREAST LTD RTon 08-01 [facility] US BREAST LTD RT * * *Final Report* * * DATE OF EXAM: Aug 01 2023 2:11PM WRU [id number] - [facility] US BREAST LTD RT / PROCEDURE REASON: N64.4 * * * * Physician Interpretation * * * * #[id number] - [facility] DIAG W SUKHDEEP HOUSTON #[id number] - [facility] US BREAST LTD LT #[id number] - [facility] US BREAST LTD RT BILATERAL DIGITAL DIAGNOSTIC MAMMOGRAM TOMOSYNTHESIS WITH CAD: 08/01/2023 HISTORY: /SEE TECH NOTE pain bilateral / Bilateral Diagnostic Mammogram/ N64.4 N64.4 N64.4. RESULT: TECHNIQUE: The study was acquired using full field digital technology and interpreted from soft copy. Digital Breast Tomosynthesis (DBT) images were obtained and used to assist in the interpretation of this examination. Current study was also evaluated with a Computer Aided Detection (CAD). No prior exams were available for comparison. There are scattered areas of fibroglandular density. No significant masses, calcifications, or other findings are seen in either breast. IMPRESSION: INCOMPLETE: NEEDS ADDITIONAL IMAGING EVALUATION There is no abnormality seen in either breast to correspond with the pain, however, clinical correlation and ultrasound are recommended. LIMITED ULTRASOUND OF RIGHT BREAST: 08/01/2023 RESULT: No prior exams were available for comparison. Real-time ultrasound of the right breast 8-9 o'clock region was performed. Hernandez scale images of the real-time examination were reviewed. IMPRESSION: NEGATIVE There is no sonographic evidence of malignancy. There is no abnormality seen in the right breast to correspond with the pain, however, clinical correlation is recommended. LIMITED ULTRASOUND OF LEFT BREAST: 08/01/2023 RESULT: No prior exams were available for comparison. Real-time ultrasound of the left breast 3-4 o'clock region was performed. Hernandez scale images of the real-time examination were reviewed. IMPRESSION: NEGATIVE There is no sonographic evidence of malignancy. There is no abnormality seen in the left breast to correspond with the pain, however, clinical correlation is recommended. Return to annual mammogram screening schedule is recommended. Anuradha mitchell/gabo:08/01/2023 14:17:39 copy to: Fito QUIROGA, ph: [phone] Multiple national specialty organizations have released breast cancer screening guidelines for women at average risk for developing breast cancer - guidelines that are based on both evidence and opinion, yet differ on when to start and how often to screen for breast cancer. With representation from Breast Imaging, Internal Medicine, Women's Health, Family Medicine, and Medical/Surgical Oncology, the [facility] has carefully reviewed the data and reached the following consensus: 1) All women should engage in shared decision-making with their providers to decide when to start and how often to screen; 2) All women should have the opportunity to start screening mammography at age 40; 3) For women ages 45-55, we recommend annual screening mammograms; 4) For women ages 55 and over, we support both the transition from an annual to a biennial interval if this aligns more with patient's values and preferences, or continuation with annual screening; 5) All women should discuss with their providers when to stop screening mammograms. Commissary Worker(s): Kamila Cabrera, [facility]; Terri Rodriguez RT(R)(M), [facility] OVERALL STUDY BIRADS: 1 Negative Digital Printer Operator: Gabo Transcribe Date/Time: Aug 01 2023 1:26P Dictated by : ANURADHA CALDERÓN MD This examination was interpreted and the report reviewed and electronically signed by: ANURADHA CALDERÓN MD on Aug 01 2023 2:17PM EST [id number] Normal [facility] CULTURE BLOOD (Two)on 2021 Microscopic examination of blood, culture CULTURE BLOOD (Two) --> Status: F No growth at 5 days. Normal [facility] [email or web address] Comment on above: Performed By: #### C /BLT ####[facility] [id number] [place] [address] CULTURE BLOODon 08-13-2022 Microscopic examination of blood, culture CULTURE BLOOD --> Status: F Streptococcus species DETECTED. Presumptive identification performed using [employer] MobileArray PCR methodology; confirmatory identification to follow. _ The [employer] BCID2 PCR Panel can detect the following targets: E. faecalis, E. faecium, Staphylococcus spp., S. aureus, S. epidermidis, S. lugdunensis, Streptococcus spp., S. pyogenes (Group A), S. agalactiae (Group B), S. pneumoniae, A. baumannii complex, B. fragilis, H. influenzae, N. meningitidis (encapsulated), P. aeruginosa, S. maltophilia, Enterobacterales, E. cloacae complex, E. coli, K. aerogenes, K. oxytoca, K. pneumoniae, Proteus spp., Salmonella spp., S. marcescens, C. albicans, C. auris, C. glabrata, C. krusei, C. parapsilosis, C. tropicalis, C. neoformans/gattii, and antimicrobial resistance genes: mecA/C, Bib/B, CTX-M, IMP, KPC, NDM, OXA-48-like, VIM, and mcr-1. Presumptive identification performed using [employer] LogicArray PCR methodology; confirmatory identification to follow. _ The [employer] BCID2 PCR Panel can detect the following targets: E. faecalis, E. faecium, Staphylococcus spp., S. aureus, S. epidermidis, S. lugdunensis, Streptococcus spp., S. pyogenes (Group A), S. agalactiae (Group B), S. pneumoniae, A. baumannii complex, B. fragilis, H. influenzae, N. meningitidis (encapsulated), P. aeruginosa, S. maltophilia, Enterobacterales, E. cloacae complex, E. coli, K. aerogenes, K. oxytoca, K. pneumoniae, Proteus spp., Salmonella spp., S. marcescens, C. albicans, C. auris, C. glabrata, C. krusei, C. parapsilosis, C. tropicalis, C. neoformans/gattii, and antimicrobial resistance genes: mecA/C, Bib/B, CTX-M, IMP, KPC, NDM, OXA-48-like, VIM, and mcr-1. 1 Organism Streptococcus mitis/Streptococcus oralis Isolated: Contamination likely unless additional blood culture sets are found to be positive with the same organism. 2 Organism Streptococcus parasanguinis Isolated: Contamination likely unless additional blood culture sets are found to be positive with the same organism. Normal [employer] Comment on above: Performed By: #### C /TERA ####[employer] [facility] [place] [address] CULTURE URINEon 08-13-2022 CULTURE URINE 1 Organism Escherichia coli >100,000 CFU/ml 1 Organism Antibiotic Result Intrp Ampicillin(TANMAY) <= 2.0 S Cefazolin(TANMAY) <= 4.0 S Ceftriaxone(TANMAY) <= 1.0 S Cefepime(TANMAY) <= 1.0 S Aztreonam(TANMAY) <= 1.0 S Amoxicillin/Clavulani c Acid(TANMAY) <= 2.0 S Ampicillin/Sulbactam( TANMAY) <= 2.0 S Pip/Tazobactam(TANMAY) <= 4.0 S Meropenem(TANMAY) <= 0.25 S Ciprofloxacin(TANMAY) <= 0.25 S Trimeth/Sulfa(TANMAY) <= 20.0 S Nitrofurantoin(TANMAY) <= 16.0 S Gentamicin(TANMAY) <= 1.0 S Amikacin(TANMAY) <= 2.0 S Normal [facility] Comment on above: Performed By: #### C /ANTHONY #### [facility] [address] [place] [address] [id number] Basic Metabolic Panelon 10-2 0-2021 Anion gap [Moles/Vol] 3 mmol/L Normal 3-13 [facility] Comment on above: Performed By: #### H EMDF, LACT3, BMP3 #### [facility] [address] [place] [address] Calcium [Mass/Vol] 9.7 mg/dL Normal 8.4-10.4 [facility] Comment on above: Performed By: #### H EMDF, LACT3, BMP3 #### [facility] [address] [place] [address] CO2 [Moles/Vol] 27 mmol/L Normal 22-30 [facility] Comment on above: Performed By: #### H EMDF, LACT3, BMP3 #### [facility] [address] [place] [address] Glucose [Mass/Vol] 109 mg/dL High 70-100 [facility] Comment on above: Performed By: #### H EMDF, LACT3, BMP3 #### [facility] [address] [place] [address] Urea nitrogen [Mass/Vol] 13 mg/dL Normal 9-20 [facility] Comment on above: Performed By: #### H EMDF, LACT3, BMP3 #### [facility] [address] [place] [address] Creatinine [Mass/Vol] 0.94 mg/dL Normal 0.52-1.25 [facility] Comment on above: Performed By: #### H EMDF, LACT3, BMP3 #### [facility] [address] [place] [address] GFR/1.73 sq M.predicted among blacks MDRD (S/P/Bld) [Vol rate/Area] 81.4 mL/min/{1.73_m2} Normal >60 [facility] Comment on above: Performed By: #### H EMDF, LACT3, BMP3 #### [facility] [address] [place] [address] GFR/1.73 sq M.predicted among non-blacks MDRD (S/P/Bld) [Vol rate/Area] 70.2 mL/min/{1.73_m2} Normal >60 [facility] Comment on above: Result Comment: KDIG O guidelines provide the following GFR categories: Stage GFR(ml/min/1.73 m2) Terms G1 >=90 Normal or high G2 60-89 Mildly decreased* G3a 45-59 Mildly to moderately decreased G3b 30-44 Moderately to severely decreased G4 15-29 Severely decreased G5 <15 Kidney failure *Relative to young adult level. In the absence of evidence of kidney damage, neither GFR category G1 nor G2 fulfill the criteria for CKD. The CKD-EPI equation is validated in individuals 18 years of age and older. Currently the best equation for estimating glomerular filtration rate (GFR) from serum creatinine in children is the Bedside Floyd equation. It is less accurate in patients with extremes of muscle mass, restriction of dietary protein, ingestion of creatine, extra-renal metabolism of creatinine, or treatment with medications that affect renal tubular creatinine secretion. Performed By: #### H EMDF, LACT3, BMP3 #### [facility] [address] [facility] [place] [address] Chloride [Moles/Vol] 105 mmol/L Normal 98-107 [facility] Comment on above: Performed By: #### H EMDF, LACT3, BMP3 #### [facility] [address] [facility] [place] [address] Potassium [Moles/Vol] 4.0 mmol/L Normal 3.5-5.1 [facility] Comment on above: Performed By: #### H EMDF, LACT3, BMP3 #### [facility] [address] [facility] [place] [address] Sodium [Moles/Vol] 135 mmol/L Normal 135-145 [facility] Comment on above: Performed By: #### H EMDF, LACT3, BMP3 #### [facility] [address] [facility] [place] [address] CR Chest Portableon 10-20-20 22 CR Chest Portable Patient Name: HEAVEN POWER Diagnostic Radiology ACCESSION EXAM DATE/TIME PROCEDURE ORDERING PROVIDER [id number] 08/10/2022 22:39 EDT CR Chest Portable MD DE LA PAZ MARK D CPT code 82534 Reason For Exam (CR Chest Portable) fever, cough Report CHEST X-RAY AP CLINICAL INDICATION: Cough AP radiograph of the chest was obtained. COMPARISON: January 07, 2022 FINDINGS: The cardiac silhouette is within normal limits. No focal consolidation or opacification is seen within the lungs. No pleural effusion or pneumothorax is identified. Degenerative changes of the thoracic spine are noted. Anterior cervical spine fusion hardware. IMPRESSION: No acute cardiopulmonary process. Report Dictated on Final Dictating Physician: MD ALBA JASON Signed Date and Time: 08/11/2022 2:04 am Signed by: MD ALBA JASON Transcribed Date and Time: 08/11/2022 2:[address] [facility] [address] Abdomen and Pelvis W cont rast Tania 08-11-2022 [id number] ACCESSION EXAM DATE/TIME PROCEDURE ORDERING PROVIDER [id number] 08/11/2022 00:[address] Abdomen/Pelvis w/ IV MD DE LA PAZ MARK D Contrast (IV Onl CPT code 78017 Q9967 Reason For Exam (CT Abdomen/Pelvis w/ IV Contrast (IV Onl) fever, abdominal pain, mild uti Report CT ABDOMEN AND PELVIS WITH CONTRAST CLINICAL INDICATION: Abdominal pain. TECHNIQUE: Multi-axial 3mm sections through the abdomen and pelvis following 75 mL of Isoview contrast media. No oral contrast was administered. Coronal and sagittal reconstructions were reviewed. COMPARISON: None. FINDINGS: Lower thorax: Normal. Stomach and duodenum: Nonspecific gastroduodenal junction wall thickening and edema. Otherwise unremarkable. Liver: Normal size and contours. Normal hepatic parenchyma. No focal lesion. Biliary tree: Post cholecystectomy. No biliary dilatation. Spleen: Normal. Adrenals: Normal. Pancreas: Normal. Kidneys: Horseshoe kidney. Normal postcontrast enhancement. No evidence of hydronephrosis. No focal renal lesion is identified. Free air or fluid: None. Mesenteric/retroperit suárez: No adenopathy or inflammation. Aorta: Aortoiliac atherosclerotic calcific disease. Bowel: Normal appendix without inflammatory change in the right lower quadrant. No inflammatory change or bowel dilatation is noted. Urinary bladder: Unremarkable. Computed Tomography Report Abdominal wall/soft tissues: No ventral hernia is evident. Pelvic organs/viscera: The uterus is present. Inguinal: No lymphadenopathy. Osseous structures: Unremarkable osseous structures. No suspicious osseous lesion. IMPRESSION: 1. Horseshoe kidney with normal post contrast enhancement. No hydronephrosis. 2. Nonspecific gastroduodenal junction wall thickening and edema; correlate with possible infectious/inflammato ry gastroduodenitis. Report Dictated on --- Final --- Dictating Physician: MD ALBA JASON Signed Date and Time: 08/11/2022 0:45 am Signed by: MD ALBA JASON Transcribed Date and Time: 08/11/2022 0:46 [facility] Juan Diego Alba MD - 08/11/2022 Patient Name: HEAVEN POWER Computed Tomography ACCESSION EXAM DATE/TIME PROCEDURE ORDERING PROVIDER [id number] 08/11/2022 00:[address] Abdomen/Pelvis w/ IV MD BRAIN, LIZETT Villa Contrast (IV Onl CPT code 88535 Q9967 Reason For Exam (CT Abdomen/Pelvis w/ IV Contrast (IV Onl) fever, abdominal pain, mild uti Report CT ABDOMEN AND PELVIS WITH CONTRAST CLINICAL INDICATION: Abdominal pain. TECHNIQUE: Multi-axial 3mm sections through the abdomen and pelvis following 75 mL of Isoview contrast media. No oral contrast was administered. Coronal and sagittal reconstructions were reviewed. COMPARISON: None. FINDINGS: Lower thorax: Normal. Stomach and duodenum: Nonspecific gastroduodenal junction wall thickening and edema. Otherwise unremarkable. Liver: Normal size and contours. Normal hepatic parenchyma. No focal lesion. Biliary tree: Post cholecystectomy. No biliary dilatation. Spleen: Normal. Adrenals: Normal. Pancreas: Normal. Kidneys: Horseshoe kidney. Normal postcontrast enhancement. No evidence of hydronephrosis. No focal renal lesion is identified. Free air or fluid: None. Mesenteric/retroperit suárez: No adenopathy or inflammation. Aorta: Aortoiliac atherosclerotic calcific disease. Bowel: Normal appendix without inflammatory change in the right lower quadrant. No inflammatory change or bowel dilatation is noted. Urinary bladder: Unremarkable. Computed Tomography Report Abdominal wall/soft tissues: No ventral hernia is evident. Pelvic organs/viscera: The uterus is present. Inguinal: No lymphadenopathy. Osseous structures: Unremarkable osseous structures. No suspicious osseous lesion. IMPRESSION: 1. Horseshoe kidney with normal post contrast enhancement. No hydronephrosis. 2. Nonspecific gastroduodenal junction wall thickening and edema; correlate with possible infectious/inflammato ry gastroduodenitis. Report Dictated on --- Final --- Dictating Physician: MD ALBA JASON Signed Date and Time: 08/11/2022 0:45 am Signed by: MD ALBA JASON Transcribed Date and Time: 08/11/2022 0:46 [facility] Work Phone: CT Abdomen and Pelvis W cont rast IVOrdered By: Juan Diego Alba on 08-11-2022 [facility] Work Phone: CT Abdomen/Pelvis w/ Contras ton 08-11-2022 CT Abdomen/Pelvis w/ Contrast Patient Name: HEAVEN POWER Computed Tomography ACCESSION EXAM DATE/TIME PROCEDURE ORDERING PROVIDER [id number] 08/11/2022 00:[address] Abdomen/Pelvis w/ IV MD RBAIN, LIZETT Villa Contrast (IV Onl CPT code 19418 Q9967 Reason For Exam (CT Abdomen/Pelvis w/ IV Contrast (IV Onl) fever, abdominal pain, mild uti Report CT ABDOMEN AND PELVIS WITH CONTRAST CLINICAL INDICATION: Abdominal pain. TECHNIQUE: Multi-axial 3mm sections through the abdomen and pelvis following 75 mL of Isoview contrast media. No oral contrast was administered. Coronal and sagittal reconstructions were reviewed. COMPARISON: None. FINDINGS: Lower thorax: Normal. Stomach and duodenum: Nonspecific gastroduodenal junction wall thickening and edema. Otherwise unremarkable. Liver: Normal size and contours. Normal hepatic parenchyma. No focal lesion. Biliary tree: Post cholecystectomy. No biliary dilatation. Spleen: Normal. Adrenals: Normal. Pancreas: Normal. Kidneys: Horseshoe kidney. Normal postcontrast enhancement. No evidence of hydronephrosis. No focal renal lesion is identified. Free air or fluid: None. Mesenteric/retroperit suárez: No adenopathy or inflammation. Aorta: Aortoiliac atherosclerotic calcific disease. Bowel: Normal appendix without inflammatory change in the right lower quadrant. No inflammatory change or bowel dilatation is noted. Urinary bladder: Unremarkable. Computed Tomography Report Abdominal wall/soft tissues: No ventral hernia is evident. Pelvic organs/viscera: The uterus is present. Inguinal: No lymphadenopathy. Osseous structures: Unremarkable osseous structures. No suspicious osseous lesion. IMPRESSION: 1. Horseshoe kidney with normal post contrast enhancement. No hydronephrosis. 2. Nonspecific gastroduodenal junction wall thickening and edema; correlate with possible infectious/inflammato ry gastroduodenitis. Report Dictated on Final Dictating Physician: MD ALBA JASON Signed Date and Time: 08/11/2022 0:45 am Signed by: MD ALBA JASON Transcribed Date and Time: 08/11/2022 0:46 Normal [facility] Complete Urinalysison 2021 Bacteria Few (1-5) Abnormal Negative [facility] Comment on above: Result Comment: . Performed By: #### C UA2 #### [facility] [address] [place] [address] Mucous Threads Negative Normal Negative [facility] Comment on above: Result Comment: . Performed By: #### C UA2 #### [facility] [address] [place] [address] RBC, Urine 0 - 2 Normal 0-2 [facility] Comment on above: Result Comment: . Performed By: #### C UA2 #### [facility] [address] [place] [address] Squamous Epithelial 0 - 2 Normal 3-5 [facility] Comment on above: Result Comment: . Performed By: #### C UA2 #### [facility] [address] [place] [address] VOLUME, URINE 8-12 ml Normal [facility] Comment on above: Result Comment: . Performed By: #### C UA2 #### [facility] [address] [place] [address] WBC, Urine 3 - 5 Normal 0-5 [facility] Comment on above: Result Comment: . Performed By: #### C UA2 #### [facility] [address] [place] [address] Appearance (U) Clear Normal Clear [facility] Comment on above: Result Comment: . Performed By: #### C UA2 #### [facility] [address] [place] [address] Bilirubin,Urine Negative Normal Negative [facility] Comment on above: Result Comment: . Performed By: #### C UA2 #### [facility] [address] [place] [address] Color (U) LIGHT YELLOW Normal Lt. Yellow [facility] Comment on above: Result Comment: . Performed By: #### C UA2 #### [facility] [address] [place] [address] Glucose Ql (U) Normal Normal Normal (<70) [facility] Comment on above: Result Comment: . Performed By: #### C UA2 #### [facility] [address] [place] [address] Ketone,Urine Negative Normal Negative [facility] Comment on above: Result Comment: . Performed By: #### C UA2 #### [facility] [address] [place] [address] Leukocytes,Urine 25 Maryann/uL Abnormal Negative [facility] Comment on above: Result Comment: . Performed By: #### C UA2 #### [facility] [address] [place] [address] Nitrites,Urine Negative Normal Negative [facility] Comment on above: Result Comment: . Performed By: #### C UA2 #### [facility] [address] [place] [address] Occult Blood,Urine 0.03 mg/dL Abnormal Negative [facility] Comment on above: Result Comment: . Performed By: #### C UA2 #### [facility] [address] [place] [address] pH,Urine 7.5 Normal 5.0-8.0 [facility] Comment on above: Result Comment: . Performed By: #### C UA2 #### [facility] [address] [place] [address] Specific [place],Urine 1.015 Normal 1.005 - 1.030 [facility] Comment on above: Result Comment: . Performed By: #### C UA2 #### [facility] [address] [place] [address] Total Protein,Urine Negative Normal Negative [facility] Comment on above: Result Comment: . Performed By: #### C UA2 #### [facility] [address] [place] [address] Urobilinogen,Urine Normal Normal Normal (0-1) [facility] Comment on above: Result Comment: . Performed By: #### C UA2 #### [facility] [address] [place] [address] Hemogram w/ Autodiffon 08-11 Abs Baso Cnt 0.1 10*3/uL Normal 0.0-0.2 [facility] Comment on above: Performed By: #### H EMDF, LACT3, BMP3 #### [facility] [address] [place] [address] Abs Neutrophile Cnt 12.4 10*3/uL High 1.8-7.0 [facility] Comment on above: Performed By: #### H EMDF, LACT3, BMP3 #### [facility] [address] [place] [address] Basophils/100 WBC (Bld) 0.5 % Normal 0.0-2.0 S [facility] Comment on above: Performed By: #### H EMDF, LACT3, BMP3 #### [facility] [address] [place] [address] Eosinophils (Bld) [#/Vol] 0.1 10*3/uL Normal 0.0-0.5 [facility] Comment on above: Performed By: #### H EMDF, LACT3, BMP3 #### [facility] [address] [place] [address] Eosinophils/100 WBC (Bld) 0.6 % Low 1.0-6.0 [facility] Comment on above: Performed By: #### H EMDF, LACT3, BMP3 #### [facility] [address] [place] [address] Erythrocyte distribution width (RBC) [Ratio] 12.8 % Normal 11.5-14.5 [facility] Comment on above: Performed By: #### H EMDF, LACT3, BMP3 #### [facility] [address] [place] [address] Granulocytes/100 WBC (Bld) 81.7 % High 40.0-80.0 [facility] Comment on above: Performed By: #### H EMDF, LACT3, BMP3 #### [facility] [address] [place] [address] Hematocrit (Bld) [Volume fraction] 38.7 % Normal 35.0-47.0 [facility] Comment on above: Performed By: #### H EMDF, LACT3, BMP3 #### [facility] [address] [place] [address] Hemoglobin (Bld) [Mass/Vol] 13.6 g/dL Normal 11.7-16.0 [facility] Comment on above: Performed By: #### H EMDF, LACT3, BMP3 #### [facility] [address] [place] [address] Lymphocytes (Bld) [#/Vol] 1.2 10*3/uL Normal 1.0-4.3 [facility] Comment on above: Performed By: #### H EMDF, LACT3, BMP3 #### [facility] [address] [place] [address] Lymphocytes/100 WBC (Bld) 7.7 % Low 20.0-40.0 [facility] Comment on above: Performed By: #### H EMDF, LACT3, BMP3 #### [facility] [address] [place] [address] MCH (RBC) [Entitic mass] 32.8 pg Normal 26.0-34.0 [facility] Comment on above: Performed By: #### H EMDF, LACT3, BMP3 #### [facility] [address] [place] [address] MCHC 35.1 % Normal 32.0-36.0 [facility] Comment on above: Performed By: #### H EMDF, LACT3, BMP3 #### [facility] [address] [place] [address] MCV (RBC) [Entitic vol] 93.3 fL Normal 79.0-98.0 S [facility] Comment on above: Performed By: #### H EMDF, LACT3, BMP3 #### [facility] [address] [place] [address] Monocytes (Bld) [#/Vol] 1.4 10*3/uL High 0.0-0.8 [facility] Comment on above: Performed By: #### H EMDF, LACT3, BMP3 #### [facility] [address] [place] [address] Monocytes/100 WBC (Bld) 9.1 % Normal 2.0-10.0 S [facility] Comment on above: Performed By: #### H EMDF, LACT3, BMP3 #### [facility] [address] [place] [address] Platelet mean volume (Bld) [Entitic vol] 9.6 fL Normal 7.4-12.4 [facility] Comment on above: Result Comment: MPV is a calculated measurement using platelet volume ratio. Performed By: #### H EMDF, LACT3, BMP3 #### [facility] [address] [place] [address] Platelets (Bld) [#/Vol] 276 10*3/uL Normal 140-440 [facility] Comment on above: Performed By: #### H EMDF, LACT3, BMP3 #### [facility] [address] [place] [address] RBC (Bld) [#/Vol] 4.15 10*6/uL Normal 3.80-5.20 [facility] Comment on above: Performed By: #### H EMDF, LACT3, BMP3 #### [facility] [address] [place] [address] WBC (Bld) [#/Vol] 15.2 10*3/uL High 3.6-10.7 [facility] Comment on above: Performed By: #### H EMDF, LACT3, BMP3 #### [facility] [address] [place] [address] Lactic Acidon 08-11-2022 Lactate [Moles/Vol] 1.5 mmol/L Normal 0.7-2.0 [facility] Comment on above: Performed By: #### H EMDF, LACT3, BMP3 #### [facility] [address] [place] [address] SARS-CoV-2, Flu A/B and RSVo n 08-11-2022 SARS-CoV-2 (COVID-19) RNA GIANFRANCO+probe Ql (Unsp spec) SARS-CoV-2 --> Status: F Not Detected. Flu A PCR --> Status: F Not Detected. Flu B PCR --> Status: F Not Detected. RSV PCR --> Status: F Not Detected. Expected Result: Not Detected _ Method: Real-time, RT-PCR This assay was developed by [employer] and distributed under an Emergency Use Authorization (EUA) granted by the FDA for the qualitative detection of nucleic acids from SARS-CoV-2, Influenza A, Influenza B, and Respiratory Syncytial Virus. Provider and patient fact sheets can be found at https://www.fda.gov/m edia/181326/download and https://www.fda.gov/m edia/970014/download. Expected Result: Not Detected _ Method: Real-time, RT-PCR This assay was developed by [employer] and distributed under an Emergency Use Authorization (EUA) granted by the FDA for the qualitative detection of nucleic acids from SARS-CoV-2, Influenza A, Influenza B, and Respiratory Syncytial Virus. Provider and patient fact sheets can be found at https://www.fda.gov/m edia/961236/download and https://www.fda.gov/m edia/091759/download. Normal [facility] Comment on above: Performed By: #### C VF ####[facility] [place] [address], [id number] Basic Metabolic Panelon - Anion gap [Moles/Vol] 3 mmol/L 3 - 13 mmol/L [facility] Calcium [Mass/Vol] 9.7 mg/dL 8.4 - 10. 4 mg/dL [facility] Chloride [Moles/Vol] 105 mmol/L 98 - 10 7 mmol/L [facility] CO2 [Moles/Vol] 27 mmol/L 22 - 30 mmol/L [facility] Creatinine [Mass/Vol] 0.94 mg/dL 0.52 - 1.25 mg/dL [facility] EGFR IF NonAfrican Ukrainian 70.2 mL/min 60 - PINF mL/min [facility] Comment on above: KDIGO guidelines pro vide the following GFR categories: Stage GFR(ml/min/1.73 m2) Terms G1 >=90 Normal or high G2 60-89 Mildly decreased* G3a 45-59 Mildly to moderately decreased G3b 30-44 Moderately to severely decreased G4 15-29 Severely decreased G5 <15 Kidney failure *Relative to young adult level. In the absence of evidence of kidney damage, neither GFR category G1 nor G2 fulfill the criteria for CKD. The CKD-EPI equation is validated in individuals 18 years of age and older. Currently the best equation for estimating glomerular filtration rate (GFR) from serum creatinine in children is the Bedside Floyd equation. It is less accurate in patients with extremes of muscle mass, restriction of dietary protein, ingestion of creatine, extra-renal metabolism of creatinine, or treatment with medications that affect renal tubular creatinine secretion. GFR/1.73 sq M.predicted among blacks MDRD (S/P/Bld) [Vol rate/Area] 81.4 mL/min/{1.73_m2} 60 - PINF mL/min [facility] Glucose [Mass/Vol] 109 mg/dL High 70 - 100 mg/dL [facility] Interpretation and review of laboratory results Abnormal [facility] Potassium [Moles/Vol] 4.0 mmol/L 3.5 - 5.1 mmol/L [facility] Sodium [Moles/Vol] 135 mmol/L 135 - 145 mmol/L [facility] Urea nitrogen (BldV) [Mass/Vol] 13 mg/dL 9 - 20 mg/dL [facility] Test Performed by [facility], [address] , [place], [place] [id number] [place] [address] LAB [facility] CBC with Auto Differentialon 08-10-2022 Absolute Baso # 0.1 10*3/uL 0 - 0.2 10*3/uL [facility] Absolute Neut # 12.4 10*3/uL High 1.8 - 7 10*3/uL [facility] Basophils/100 WBC (Bld) 0.5 % 0 - 2 % [facility] Eosinophils (Bld) [#/Vol] 0.1 10*3/uL 0 - 0.5 10*3/uL [facility] Eosinophils/100 WBC (Bld) 0.6 % Low 1 - 6 % [facility] Granulocytes/100 WBC (Bld) 81.7 % High 40 - 80 % [facility] Hematocrit (Bld) [Volume fraction] 38.7 % 35 - 47 % [facility] Hemoglobin (Bld) [Mass/Vol] 13.6 g/dL 11.7 - 16 g/dL [facility] Interpretation and review of laboratory results Abnormal [facility] Lymphocytes (Bld) [#/Vol] 1.2 10*3/uL 1 - 4.3 10*3/uL [facility] Lymphocytes/100 WBC (Bld) 7.7 % Low 20 - 40 % [facility] MCH (RBC) [Entitic mass] 32.8 pg 26 - 34 pg [facility] MCHC (RBC) [Mass/Vol] 35.1 % 32 - 36 % [facility] MCV (RBC) [Entitic vol] 93.3 fL 79 - 98 fL [facility] Monocytes (Bld) [#/Vol] 1.4 10*3/uL High 0 - 0.8 10*3/uL [facility] Monocytes/100 WBC (Bld) 9.1 % 2 - 10 % [facility] Platelet distribution width (Bld) [Ratio] 12.8 % 11.5 - 14.5 % [facility] Platelet mean volume (Bld) [Entitic vol] 9.6 fL 7.4 - 12.4 fL [facility] Comment on above: MPV is a calculated measurement using platelet volume ratio. Platelets (Bld) [#/Vol] 276 10*3/uL 140 - 440 10*3/uL [facility] RBC (Bld) [#/Vol] 4.15 10*6/uL 3.8 - 5.2 10*6/uL [facility] WBC (Bld) [#/Vol] 15.2 10*3/uL High 3.6 - 10.7 10*3/uL [facility] Test Performed by [facility], [address] , [address] LAB [facility] COVID-19, Flu A/B, and RSV C omboon 08-10-2022 Influenza A by PCR Not detected [facility] Influenza B by PCR Not detected [facility] RSV PCR Not Detected. Expected Result: Not Detected _ Method: Real-time, RT-PCR This assay was developed by [employer] and distributed under an Emergency Use Authorization (EUA) granted by the FDA for the qualitative detection of nucleic acids from SARS-CoV-2, Influenza A, Influenza B, and Respiratory Syncytial Virus. Provider and patient fact sheets can be found at https://www.fda.gov/m edia/437679/download and https://www.fda.gov/m edia/970886/download. [facility] SARS-CoV-2 (COVID-19) RNA GIANFRANCO+probe Ql (Unsp spec) Not detected [facility] Test Performed by [facility], [address] , [address] LAB [facility] CT Abdomen and Pelvis W cont rast Tania 08-10-2022 Radiology Study observation (narrative) [facility] Work Phone: Lactic Acidon 08-10-2022 Lactate [Moles/Vol] 1.5 mmol/L 0.7 - 2 mmol/L [facility] Test Performed by [facility], [address] , [address] LAB [facility] Urinalysison 08-10-2022 Appearance (U) Clear Clear NA [facility] Comment on above: . Bacteria, UA Few (1-5) Abnormal Negative /[HPF] [facility] Comment on above: . Bilirubin Urine Negative Negative mg/dL [facility] Comment on above: . Color (U) LIGHT YELLOW Lt. Yellow NA [facility] Comment on above: . Glucose, Ur Normal Normal (<70) mg/dL [facility] Comment on above: . Interpretation and review of laboratory results Abnormal [facility] Ketones Ql (U) Negative Negative mg/dL [facility] Comment on above: . LEUKOCYTES, UA 25 Abnormal Negative Maryann/uL [facility] Comment on above: . Mucous Threads Negative Negative /[LPF] [facility] Comment on above: . Nitrite, Urine Negative Negative NA [facility] Comment on above: . Occult Blood,Urine 0.03 mg/dL Abnormal Negative [facility] Comment on above: . pH (U) 7.5 [pH] [facility] Comment on above: . RBC, UA /[HPF] 0 - 2 /[HPF] [facility] Comment on above: . Specific [place], Urine 1.015 S [facility] Comment on above: . Squam Epithel, UA 0-2 3 - 5 /[HPF] [facility] Comment on above: . Total Protein, Urine Negative Negativ e mg/dL [facility] Comment on above: . Urobilinogen, Urine Normal Normal ( 0-1) mg/dL [facility] Comment on above: . Volume 8-12 ml [facility] Comment on above: . WBC, UA /[HPF] 0 - 5 /[HPF] [facility] Comment on above: . Test Performed by [facility], [address] [place] [address] Rd. , [address] LAB [facility] MG Breast Tomosynthesis Scr Blon 08-01-2022 MG Breast Tomosynthesis Scr Bl Patient Name: HEAVEN POWER Mammography ACCESSION EXAM DATE/TIME PROCEDURE ORDERING PROVIDER [id number] 08/01/2022 14:07 EDT MG Breast Tomosynthesis DO WIGGINS EUGENE F. BI Scr CPT code 18757 02753 Reason For Exam (MG Breast Tomosynthesis BI Scr) screening Report TIME SINCE LAST MAMMOGRAM: Last mammogram was performed 1 year and 7 months ago. REASON FOR EXAM: screening, asymptomatic. PROCEDURE: MG BREAST TOMOSYNTHESIS BL SCR: AUGUST 01, 2022 - 2D/3D Procedure 3D Bilateral CC and MLO view(s) were taken. 2D Bilateral CC and MLO view(s) were taken. Prior study comparison: December 18, 2020, bilateral MG breast tomosynthesis bl scr performed at [facility]. February 04, 2019, bilateral MG breast tomosynthesis bl scr performed at [facility]. November 10, 2015, bilateral screening mammogram performed at [facility] at [facility]. TISSUE DENSITY: BIRADS B - There are scattered fibroglandular densities. . RISK ALERT: The Cancer Risk Assessment scores below the recommendation of this report contain an outcome above the normal risk range. PATIENT CANCER HISTORY: No Personal History of Cancer FAMILY CANCER HISTORY: Maternal Grandmother Breast Cancer age 20 Maternal Aunt Breast Cancer age 40, Lymphoma Maternal Cousin Leukemia age 20 Sister Breast Cancer age 43 FINDINGS: No suspicious masses, architectural distortions or suspiciously clustered microcalcifications are identified. There is no evidence of skin thickening or nipple retraction. There are no significant changes when compared with prior studies. No mammographic evidence of malignancy. Markings on images: BB's = Nipples; skin lesions Mammography Report Open kake = Palpable Line = Scar 2D digital mammography and tomosynthesis imaging were performed and reviewed with CAD. ASSESSMENT: Category 1 Negative RECOMMENDATION: Routine screening mammogram of both breasts in 1 year. . Report Dictated on Cancer Risk Assessment: This risk assessment is based on patient provided information collected in a risk survey taken at the time of this examination. Lifetime breast cancer risk: Average Risk - If greater than or equal to 20%, consider annual mammogram and annual screening Breast MRI or follow up in high risk clinic. A score of Average Risk indicates a score of less than 20%. Is the patient at elevated risk based on the HBOC criteria? Yes (Hereditary Breast and Ovarian Cancer) - If yes, consider genetic counseling and testing with high risk follow up. Is the patient at elevated risk based on the Carter Syndrome criteria? No - If yes, consider genetic counseling and testing with high risk follow up. Final Signed Date and Time: 08/01/2022 2:28 pm Signed by: MD GARCIA LAUREN B [facility] [place] [facility]ukhdeep Digital Screen [place] forbesshana 08-01-2022 Patient Name: HEAVEN POWER Mammography ACCESSION EXAM DATE/TIME PROCEDURE ORDERING PROVIDER [id number] 08/01/2022 14:07 EDT MG Breast Tomosynthesis DO WIGGINS EUGENE F. BI Scr CPT code 97557 [id number] Reason For Exam (MG Breast Tomosynthesis BI Scr) screening Report TIME SINCE LAST MAMMOGRAM: Last mammogram was performed 1 year and 7 months ago. REASON FOR EXAM: screening, asymptomatic. PROCEDURE: MG BREAST TOMOSYNTHESIS BL SCR: AUGUST 01, 2022 - 2D/3D Procedure 3D Bilateral CC and MLO view(s) were taken. 2D Bilateral CC and MLO view(s) were taken. Prior study comparison: December 18, 2020, bilateral MG breast tomosynthesis bl scr performed at [facility]. February 04, 2019, bilateral MG breast tomosynthesis bl scr performed at [facility]. November 10, 2015, bilateral screening mammogram performed at [facility] at [facility]. TISSUE DENSITY: BIRADS B - There are scattered fibroglandular densities. . RISK ALERT: The Cancer Risk Assessment scores below the recommendation of this report contain an outcome above the normal risk range. PATIENT CANCER HISTORY: No Personal History of Cancer FAMILY CANCER HISTORY: Maternal Grandmother Breast Cancer age 20 Maternal Aunt Breast Cancer age 40, Lymphoma Maternal Cousin Leukemia age 20 Sister Breast Cancer age 43 FINDINGS: No suspicious masses, architectural distortions or suspiciously clustered microcalcifications are identified. There is no evidence of skin thickening or nipple retraction. There are no significant changes when compared with prior studies. No mammographic evidence of malignancy. Markings on images: BB's = Nipples; skin lesions Mammography Report Open kake = Palpable Line = Scar 2D digital mammography and tomosynthesis imaging were performed and reviewed with CAD. ASSESSMENT: Category 1 Negative RECOMMENDATION: Routine screening mammogram of both breasts in 1 year. . Report Dictated on Cancer Risk Assessment: This risk assessment is based on patient provided information collected in a risk survey taken at the time of this examination. Lifetime breast cancer risk: Average Risk - If greater than or equal to 20%, consider annual mammogram and annual screening Breast MRI or follow up in high risk clinic. A score of Average Risk indicates a score of less than 20%. Is the patient at elevated risk based on the [facility] criteria? Yes (Hereditary Breast and Ovarian Cancer) - If yes, consider genetic counseling and testing with high risk follow up. Is the patient at elevated risk based on the Carter Syndrome criteria? No - If yes, consider genetic counseling and testing with high risk follow up. --- Final --- Signed Date and Time: 08/01/2022 2:28 pm Signed by: MD HANDY, ANCELMO Ceja [facility] Ancelmo Garcia MD - 08/01/2022 Patient Name: HEAVEN POWER Mammography ACCESSION EXAM DATE/TIME PROCEDURE ORDERING PROVIDER [id number] 08/01/2022 14:07 EDT MG Breast Tomosynthesis DO WIGGINS EUGENE F. BI Scr CPT code 45954 [id number] Reason For Exam (MG Breast Tomosynthesis BI Scr) screening Report TIME SINCE LAST MAMMOGRAM: Last mammogram was performed 1 year and 7 months ago. REASON FOR EXAM: screening, asymptomatic. PROCEDURE: MG BREAST TOMOSYNTHESIS BL SCR: AUGUST 01, 2022 - 2D/3D Procedure 3D Bilateral CC and MLO view(s) were taken. 2D Bilateral CC and MLO view(s) were taken. Prior study comparison: December 18, 2020, bilateral MG breast tomosynthesis bl scr performed at [facility]. February 04, 2019, bilateral MG breast tomosynthesis bl scr performed at [facility]. November 10, 2015, bilateral screening mammogram performed at [facility]. TISSUE DENSITY: BIRADS B - There are scattered fibroglandular densities. . RISK ALERT: The Cancer Risk Assessment scores below the recommendation of this report contain an outcome above the normal risk range. PATIENT CANCER HISTORY: No Personal History of Cancer FAMILY CANCER HISTORY: Maternal Grandmother Breast Cancer age 20 Maternal Aunt Breast Cancer age 40, Lymphoma Maternal Cousin Leukemia age 20 Sister Breast Cancer age 43 FINDINGS: No suspicious masses, architectural distortions or suspiciously clustered microcalcifications are identified. There is no evidence of skin thickening or nipple retraction. There are no significant changes when compared with prior studies. No mammographic evidence of malignancy. Markings on images: BB's = Nipples; skin lesions Mammography Report Open kake = Palpable Line = Scar 2D digital mammography and tomosynthesis imaging were performed and reviewed with CAD. ASSESSMENT: Category 1 Negative RECOMMENDATION: Routine screening mammogram of both breasts in 1 year. . Report Dictated on Cancer Risk Assessment: This risk assessment is based on patient provided information collected in a risk survey taken at the time of this examination. Lifetime breast cancer risk: Average Risk - If greater than or equal to 20%, consider annual mammogram and annual screening Breast MRI or follow up in high risk clinic. A score of Average Risk indicates a score of less than 20%. Is the patient at elevated risk based on the HBOC criteria? Yes (Hereditary Breast and Ovarian Cancer) - If yes, consider genetic counseling and testing with high risk follow up. Is the patient at elevated risk based on the Carter Syndrome criteria? No - If yes, consider genetic counseling and testing with high risk follow up. --- Final --- Signed Date and Time: 08/01/2022 2:28 pm Signed by: MD GARCIA LAUREN B [employer] Work Phone: Radiology Study observation (narrative) [facility] Work Phone: [place] [facility] Digital Screen Bila teralOrdered By: Ancelmo Garcia on 08-01-2022 [facility] Work Phone: CR Chest Portableon 01-08-20 22 CR Chest Portable Patient Name: HEAVEN POWER Diagnostic Radiology ACCESSION EXAM DATE/TIME PROCEDURE ORDERING PROVIDER [id number] 01/07/2022 13:34 EDT CR Chest Portable [id number] VALENCIA CPT code 01349 Reason For Exam (CR Chest Portable) shortness of breath Report Examination: AP portable chest Clinical Indication: shortness of breath Comparison: 10/08/2020 Findings: Lungs appear normally inflated. There is no focal consolidation, effusion, or pulmonary edema identified. The cardiomediastinal silhouette is within normal limits. There is no gross evidence of osseous abnormality. Mild degenerative changes within the spine. Lower cervical fusion hardware plate. Impression: No acute cardiopulmonary process. Report Dictated on Final Dictating Physician: MD STAUFFER ANTHONY J Signed Date and Time: 01/07/2022 1:46 pm Signed by: MD STAUFFER ANTHONY J Transcribed Date and Time: 01/07/2022 1:47 Normal [facility] ED Provider Noteon ED Provider Note [facility] EM[facility]GENCY DEPARTMENT ENCOUNTER Pt Name: Heaven Power Birthdate 1970 Date of evaluation: 01/07/2022 Provider: Kamilla Flowers, DO CHIEF COMPLAINT Chief Complaint Patient presents with ? Positive For Covid-19 HISTORY OF PRESENT ILLNESS (Location/Symptom, Timing/Onset, Context/Setting, Quality, Duration, Modifying Factors, Severity) Note limiting factors. I wore a N95 mask for the entirety of this encounter. Does this patient come from an ECF, SNF, Rehab, [facility] or other Congregate setting: no (If yes to above patient needs a Covid-19 test) HPI Nursing Notes were reviewed. REVIEW OF SYSTEMS (2+ for level 4; 10+ for level 5) Review of Systems Constitutional: Positive for chills and fever. HENT: Negative for congestion and rhinorrhea. Respiratory: Positive for cough and shortness of breath. Cardiovascular: Negative for chest pain and leg swelling. Gastrointestinal: Negative for abdominal pain, diarrhea, nausea and vomiting. Genitourinary: Negative for dysuria and frequency. Musculoskeletal: Positive for myalgias. Negative for arthralgias and back pain. Skin: Negative for rash. Neurological: Negative for light-headedness and headaches. Psychiatric/Behaviora l: Negative for suicidal ideas. PAST MEDICAL HISTORY Past Medical History: Diagnosis Date ? Breast cancer screening 11/2020 ? Cervical spine disease [address] [facility] [address] Levine ? Colon cancer screening 12/2021 Dr. Kwan- path pnd ? Family history of breast cancer in sister ? Family history of ovarian cancer 1/2 sister ? Gastroesophageal reflux disease with esophagitis without hemorrhage 12/[address] Kwan ? History of depression 1995 resolved ? Hyperlipidemia ? Migraines 2010 ? Papanicolaou smear 12/2020 [facility], Dr. Wiggins ? Smoker VAP SURGICAL HISTORY Past Surgical History: Procedure Laterality Date ? CERVICAL FUSION 2010 Dr. Levine, Spinal surgeon ? CHOLECYSTECTOMY, LAPAROSCOPIC 03/02/2021 Jami ? COLONOSCOPY 12/2021 Dr. Kwan- negative exam- rech due ? ? ENDOMETRIAL ABLATION 2009 ? KNEE ARTHROSCOPY Left times 2 ? MENISCECTOMY Left 2008 ? SALPINGECTOMY Left 1994 Ectopic x2 ? TONSILLECTOMY N/A ? TUBAL LIGATION ? UPPER GASTROINTESTINAL ENDOSCOPY 12/2021 Dr. Kwan- mild reflux, CURRENT MEDICATIONS Discharge Medication List as of 01/07/2022 2:35 PM CONTINUE these medications which have NOT CHANGED Details meloxicam (MOBIC) 15 MG tablet Take 1 tablet by mouth daily, Disp-30 tablet, R-3Normal acetaminophen (TYLENOL) 500 MG tablet Take 500 mg by mouth every 6 hours as needed for [facility] ALLERGIES Latex, Asa [aspirin], and Codeine FAMILY HISTORY Family History Problem Relation Age of Onset ? High Blood Pressure Mother ? Thyroid Disease Mother ? Osteoporosis Mother ? Asthma Mother ? High Blood Pressure Father ? Ovarian Cancer Sister Half sister ? Breast Cancer Maternal Aunt 45 ? Diabetes Maternal Grandmother ? Osteoporosis Maternal Grandmother ? Breast Cancer Sister 43 SOCIAL HISTORY Social History Socioeconomic History ? Marital status: Spouse name: Not on file ? Number of children: Not on file ? Years of education: Not on file ? Highest education level: Not on file Occupational History ? Not on file Tobacco Use ? Smoking status: Current Some Day Smoker Packs/day: 1.00 Years: 30.00 Pack years: 30.00 Types: Cigarettes ? Smokeless tobacco: Never Used Vaping Use ? Vaping Use: Every day ? Substances: Nicotine Substance and Sexual Activity ? Alcohol use: Yes Alcohol/week: 0.0 standard drinks Comment: Occasional ? Drug use: Never ? Sexual activity: Yes control/protection: Surgical Comment: Lt. salpingectomy; Rt. ligation Other Topics Concern ? Not on file Social History Narrative to Nestor. 2 sons and 2 dtrs, 4 GC. SMOKER , then Vaping some. Rare ETOH. 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 Social Determinants of Health Financial Resource Strain: Low Risk ? Difficulty of Paying Living Expenses: Not hard at all Food Insecurity: No Food Insecurity ? Worried About Running Out of Food in the Last Year: Never true ? Ran Out of Food in the Last Year: Never true Transportation Needs: ? Lack of Transportation (Medical): Not on file ? Lack of Transportation (Non-Medical): Not on file Physical Activity: ? Days of Exercise per Week: Not on file ? Minutes of Exercise per Session: Not on file Stress: ? Feeling of Stress : Not on file Social Connections: ? Frequency of Communication with Friends and Family: Not on file ? Frequency of Social Gatherings with Friends and Family: Not on file ? Attends Oriental [employer] Services: Not on file ? Active Member of Clubs or Organizations: Not on file ? Attends Club or Organization Meetings: Not on file ? Marital Status: Not on file Intimate Partner Violence: ? Fe (more content not included)... Normal [facility] XR CHEST PORTABLEon 01-08-20 Patient Name: HEAVEN POWER Diagnostic Radiology ACCESSION EXAM DATE/TIME PROCEDURE ORDERING PROVIDER [id number] 01/07/2022 13:34 EDT CR Chest Portable [id number] KAMILLA BURDICK CPT code 60439 Reason For Exam (CR Chest Portable) shortness of breath Report Examination: AP portable chest Clinical Indication: shortness of breath Comparison: 10/08/2020 Findings: Lungs appear normally inflated. There is no focal consolidation, effusion, or pulmonary edema identified. The cardiomediastinal silhouette is within normal limits. There is no gross evidence of osseous abnormality. Mild degenerative changes within the spine. Lower cervical fusion hardware plate. Impression: No acute cardiopulmonary process. Report Dictated on --- Final --- Dictating Physician: MD STAUFEFR ANTHONY J Signed Date and Time: 01/07/2022 1:46 pm Signed by: MD STAUFFER ANTHONY J Transcribed Date and Time: 01/07/2022 1:47 [facility] Dillon Curry MD - 01/07/2022 Patient Name: HEAVEN POWER Diagnostic Radiology ACCESSION EXAM DATE/TIME PROCEDURE ORDERING PROVIDER [id number] 01/07/2022 13:34 EDT CR Chest Portable [id number] -KAMILLA FLOWERS CPT code 82902 Reason For Exam (CR Chest Portable) shortness of breath Report Examination: AP portable chest Clinical Indication: shortness of breath Comparison: 10/08/2020 Findings: Lungs appear normally inflated. There is no focal consolidation, effusion, or pulmonary edema identified. The cardiomediastinal silhouette is within normal limits. There is no gross evidence of osseous abnormality. Mild degenerative changes within the spine. Lower cervical fusion hardware plate. Impression: No acute cardiopulmonary process. Report Dictated on --- Final --- Dictating Physician: MD STAUFFER ANTHONY J Signed Date and Time: 01/07/2022 1:46 pm Signed by: MD STAUFFER ANTHONY J Transcribed Date and Time: 01/07/2022 1:47 [facility] Work Phone: Radiology Study observation (narrative) [facility] Work Phone: XR CHEST PORTABLEOrdered By: Dillon Stauffer on 01-07-2022 [facility] Work Phone: CR Spine Cervical 4+ Viewson 11-17-2021 CR Spine Cervical 4+ Views Patient Name: HEAVEN POWER Diagnostic Radiology ACCESSION EXAM DATE/TIME PROCEDURE ORDERING PROVIDER [id number] 11/17/2021 14:34 EST CR Spine Cervical 4+ DO WIGGINS EUGENE F. Views CPT code 69358 Reason For Exam (CR Spine Cervical 4+ Views) neck pain Report Examination: Cervical spine 5 views Indication: neck pain Findings The vertebral bodies are in gross anatomic alignment. No acute fracture is demonstrated. Anterior plate and screw fixation is present from C4 to C6 with intervertebral body graft. Small endplate osteophytes are present at C3/C4 and C6/C7. Mild degenerative facet changes are present. There is uncovertebral hypertrophy at C3/C4 C4/C5 and C5/C6 in addition to C6/C7. Mild foraminal stenosis is present at C4/C5 C5/C6 and C6/C7. No prevertebral soft tissue swelling is noted. Impression: No acute osseous abnormality. Postsurgical changes as detailed above. Report Dictated on Final Dictating Physician: MD AUSTIN KRIKOR Signed Date and Time: 11/17/2021 9:42 pm Signed by: MD AUSTIN KRIKOR Transcribed Date and Time: 11/17/2021 9:43 Normal [facility] CR Spine Lumbosacral 4+ View son 11-17-2021 CR Spine Lumbosacral 4+ Views Patient Name: HEAVEN POWER Diagnostic Radiology ACCESSION EXAM DATE/TIME PROCEDURE ORDERING PROVIDER [id number] 11/17/2021 14:34 EST CR Spine Lumbosacral 4+ DO FELICIANO TOM F. Views CPT code 28642 Reason For Exam (CR Spine Lumbosacral 4+ Views) LBP Report COMPLETE LUMBAR SPINE History: Low back pain Findings: Frontal, lateral, bilateral oblique, and spot lateral views show degenerative spine changes. There is hypertrophic/scleroti c facet joint arthropathy at L5-S1. The remaining lumbar vertebral bodies, disc spaces, and vertebral alignment are otherwise unremarkable. There are aortic atherosclerotic calcifications. IMPRESSION: Spondylosis as described. Report Dictated on Final Dictating Physician: MD LINK AHMAD Signed Date and Time: 11/17/2021 4:26 pm Signed by: MD LINK AHMAD Transcribed Date and Time: 11/17/2021 4:27 Normal [facility] XR CERVICAL SPINE (4-5 VIEWS )on 11-17-2021 Patient Name: HEAVEN POWER Diagnostic Radiology ACCESSION EXAM DATE/TIME PROCEDURE ORDERING PROVIDER [id number] 11/17/2021 14:34 EST CR Spine Cervical 4+ NAOMIADO TOM F. Views CPT code 53405 Reason For Exam (CR Spine Cervical 4+ Views) neck pain Report Examination: Cervical spine 5 views Indication: neck pain Findings The vertebral bodies are in gross anatomic alignment. No acute fracture is demonstrated. Anterior plate and screw fixation is present from C4 to C6 with intervertebral body graft. Small endplate osteophytes are present at C3/C4 and C6/C7. Mild degenerative facet changes are present. There is uncovertebral hypertrophy at C3/C4 C4/C5 and C5/C6 in addition to C6/C7. Mild foraminal stenosis is present at C4/C5 C5/C6 and C6/C7. No prevertebral soft tissue swelling is noted. Impression: No acute osseous abnormality. Postsurgical changes as detailed above. Report Dictated on --- Final --- Dictating Physician: MD AUSTIN KRIKOR Signed Date and Time: 11/17/2021 9:42 pm Signed by: MD AUSTIN KRIKOR Transcribed Date and Time: 11/17/2021 9:43 [facility] Sheri Austin MD - 11/17/2021 Patient Name: HEAVEN POWER Diagnostic Radiology ACCESSION EXAM DATE/TIME PROCEDURE ORDERING PROVIDER [id number] 11/17/2021 14:34 EST CR Spine Cervical 4+ DO WIGGINS EUGENE F. Views CPT code 35162 Reason For Exam (CR Spine Cervical 4+ Views) neck pain Report Examination: Cervical spine 5 views Indication: neck pain Findings The vertebral bodies are in gross anatomic alignment. No acute fracture is demonstrated. Anterior plate and screw fixation is present from C4 to C6 with intervertebral body graft. Small endplate osteophytes are present at C3/C4 and C6/C7. Mild degenerative facet changes are present. There is uncovertebral hypertrophy at C3/C4 C4/C5 and C5/C6 in addition to C6/C7. Mild foraminal stenosis is present at C4/C5 C5/C6 and C6/C7. No prevertebral soft tissue swelling is noted. Impression: No acute osseous abnormality. Postsurgical changes as detailed above. Report Dictated on --- Final --- Dictating Physician: MD AUSTIN KRIKOR Signed Date and Time: 11/17/2021 9:42 pm Signed by: MD AUSTIN KRIKOR Transcribed Date and Time: 11/17/2021 9:43 [facility] Work Phone: Radiology Study observation (narrative) [facility] Work Phone: XR CERVICAL SPINE (4-5 VIEWS )Ordered By: Sheri Austin on 11-17-2021 [facility] Work Phone: XR LUMBAR SPINE (MIN 4 VIEWS )on 11-17-2021 Patient Name: HEAVEN POWER Diagnostic Radiology ACCESSION EXAM DATE/TIME PROCEDURE ORDERING PROVIDER [id number] 11/17/2021 14:34 EST CR Spine Lumbosacral 4+ PETRILLA, DO, TOM F. Views CPT code 49118 Reason For Exam (CR Spine Lumbosacral 4+ Views) LBP Report COMPLETE LUMBAR SPINE History: Low back pain Findings: Frontal, lateral, bilateral oblique, and spot lateral views show degenerative spine changes. There is hypertrophic/scleroti c facet joint arthropathy at L5-S1. The remaining lumbar vertebral bodies, disc spaces, and vertebral alignment are otherwise unremarkable. There are aortic atherosclerotic calcifications. IMPRESSION: Spondylosis as described. Report Dictated on --- Final --- Dictating Physician: MD LINK AHMAD Signed Date and Time: 11/17/2021 4:26 pm Signed by: MD LINK AHMAD Transcribed Date and Time: 11/17/2021 4:27 [facility] Adelita Link MD - 11/17/2021 Patient Name: HEAVEN POWER Diagnostic Radiology ACCESSION EXAM DATE/TIME PROCEDURE ORDERING PROVIDER [id number] 11/17/2021 14:34 EST CR Spine Lumbosacral 4+ PETRILLA, DO, TOM F. Views CPT code 16653 Reason For Exam (CR Spine Lumbosacral 4+ Views) LBP Report COMPLETE LUMBAR SPINE History: Low back pain Findings: Frontal, lateral, bilateral oblique, and spot lateral views show degenerative spine changes. There is hypertrophic/scleroti c facet joint arthropathy at L5-S1. The remaining lumbar vertebral bodies, disc spaces, and vertebral alignment are otherwise unremarkable. There are aortic atherosclerotic calcifications. IMPRESSION: Spondylosis as described. Report Dictated on --- Final --- Dictating Physician: MD LINK AHMAD Signed Date and Time: 11/17/2021 4:26 pm Signed by: MD LINK AHMAD Transcribed Date and Time: 11/17/2021 4:27 [facility] Work Phone: Radiology Study observation (narrative) [facility] Work Phone: XR LUMBAR SPINE (MIN 4 VIEWS )Ordered By: Adelita Link on 11-17-2021 [facility] Work Phone: CT Abdomen and Pelvis W cont rast IVOrdered By: Wes Wisdom on 02-22-2021 Patient Name: HEAVEN POWER Computed Tomography ACCESSION EXAM DATE/TIME PROCEDURE ORDERING PROVIDER [id number] 02/22/2021 23:[address] Abdomen/Pelvis w/ IV KAYLA WISDOM DANIEL M Contrast (IV Onl CPT code 97136 Q9967 Reason For Exam (CT Abdomen/Pelvis w/ IV Contrast (IV Onl) RUQ pain Report CT ABDOMEN AND PELVIS WITH CONTRAST CLINICAL INDICATION: Right upper quadrant pain with nausea and vomiting TECHNIQUE: Transaxial sequence through the abdomen and pelvis with 3 mm reconstruction with dynamic intravenous infusion of 75 mL of 370 mg% contrast media. No oral contrast was administered. Coronal and sagittal reconstructions included. Dose reduction was employed with automated exposure control. COMPARISON: None FINDINGS: Exam quality: Examination is limited for evaluation of the gastrointestinal tract due to lack of oral contrast Chest base: Atelectasis is noted at the lung bases. Liver: Normal size and contour. No focal lesion. Biliary tree: Normal caliber. No calcified gallstones identified Spleen: Normal. Adrenals: Normal. Pancreas: Normal. Kidneys: Horseshoe configuration is noted with normal contour and no hydronephrosis. No focal lesion. Free fluid: None. Retroperitoneal/mesen teric lymphadenopathy: None. Aorta: Normal caliber with atherosclerotic calcification. Bowel: Normal caliber. Normal appendix identified Abdominal wall: Normal. Pelvic organs/viscera: No mass identified. Computed Tomography Report Pelvic lymphadenopathy: None. Osseous structures: Normal. IMPRESSION: No acute abnormality throughout the abdomen and pelvis. Horseshoe configuration of the kidneys. Report Dictated on Workstation: [email or web address] --- Final --- Dictating Physician: MD PURVIS JEFFREY Signed Date and Time: 02/22/2021 11:11 pm Signed by: MD PURVIS JEFFREY Transcribed Date and Time: 02/22/2021 11:12 [facility] Work Phone: Aram, [facility] Incoming [facility] Results From [facility] - 02/22/2021 11:12 PM EDT Patient Name: HEAVEN POWER Computed Tomography ACCESSION EXAM DATE/TIME PROCEDURE ORDERING PROVIDER [id number] 02/22/2021 23:[address] Abdomen/Pelvis w/ IV KAYLA WISDOM DANIEL M Contrast (IV Onl CPT code 35662 Q9967 Reason For Exam (CT Abdomen/Pelvis w/ IV Contrast (IV Onl) RUQ pain Report CT ABDOMEN AND PELVIS WITH CONTRAST CLINICAL INDICATION: Right upper quadrant pain with nausea and vomiting TECHNIQUE: Transaxial sequence through the abdomen and pelvis with 3 mm reconstruction with dynamic intravenous infusion of 75 mL of 370 mg% contrast media. No oral contrast was administered. Coronal and sagittal reconstructions included. Dose reduction was employed with automated exposure control. COMPARISON: None FINDINGS: Exam quality: Examination is limited for evaluation of the gastrointestinal tract due to lack of oral contrast Chest base: Atelectasis is noted at the lung bases. Liver: Normal size and contour. No focal lesion. Biliary tree: Normal caliber. No calcified gallstones identified Spleen: Normal. Adrenals: Normal. Pancreas: Normal. Kidneys: Horseshoe configuration is noted with normal contour and no hydronephrosis. No focal lesion. Free fluid: None. Retroperitoneal/mesen teric lymphadenopathy: None. Aorta: Normal caliber with atherosclerotic calcification. Bowel: Normal caliber. Normal appendix identified Abdominal wall: Normal. Pelvic organs/viscera: No mass identified. Computed Tomography Report Pelvic lymphadenopathy: None. Osseous structures: Normal. IMPRESSION: No acute abnormality throughout the abdomen and pelvis. Horseshoe configuration of the kidneys. Report Dictated on Workstation: [id number] --- Final --- Dictating Physician: MD PURVIS JEFFREY Signed Date and Time: 02/22/2021 11:11 pm Signed by: MD PURVIS JEFFREY Transcribed Date and Time: 02/22/2021 11:12 [facility] Work Phone: Comprehensive Metabolic Pane lOrdered By: Wes Wisdom on 02-22-2021 Albumin [Mass/Vol] 4.3 g/dL 3.5 - 5.0 g/dL [facility] Work Phone: ALP (Bld) [Catalytic activity/Vol] 92 U/L 38 - 126 U/L [facility] Work Phone: ALT [Catalytic activity/Vol] 12 U/L 0 - 34 U/L [facility] Work Phone: Comment on above: The ALT test is perf ormed by an updated assay method. Please note that the reference intervals have been changed and are now sex specific. Anion gap [Moles/Vol] 6 mmol/L 3 - 13 mmol/L [facility] Work Phone: AST [Catalytic activity/Vol] 25 U/L 15 - 46 U/L [facility] Work Phone: Bilirubin [Mass/Vol] 0.4 mg/dL 0.2 - 1 .3 mg/dL [facility] Work Phone: Calcium [Mass/Vol] 9.6 mg/dL 8.4 - 10. 4 mg/dL [facility] Work Phone: Chloride [Moles/Vol] 106 mmol/L 98 - 10 7 mmol/L [facility] Work Phone: CO2 [Moles/Vol] 27 mmol/L 22 - 30 mmol/L [facility] Work Phone: Creatinine [Mass/Vol] 0.8 mg/dL 0.52 - 1.25 mg/dL [facility] Work Phone: EGFR IF NonAfrican Ukrainian 86.2 mL/min >60 [facility] Work Phone: Comment on above: KDIGO guidelines pro vide the following GFR categories: Stage GFR(ml/min/1.73 m2) Terms G1 >=90 Normal or high G2 60-89 Mildly decreased* G3a 45-59 Mildly to moderately decreased G3b 30-44 Moderately to severely decreased G4 15-29 Severely decreased G5 <15 Kidney failure *Relative to young adult level. In the absence of evidence of kidney damage, neither GFR category G1 nor G2 fulfill the criteria for CKD. The CKD-EPI equation is validated in individuals 18 years of age and older. Currently the best equation for estimating glomerular filtration rate (GFR) from serum creatinine in children is the Bedside Floyd equation. It is less accurate in patients with extremes of muscle mass, restriction of dietary protein, ingestion of creatine, extra-renal metabolism of creatinine, or treatment with medications that affect renal tubular creatinine secretion. Free PSA/Total PSA [Mass fraction] 7.2 g/dL 6.3 - 8.2 g/dL [facility] Work Phone: GFR/1.73 sq M.predicted among blacks MDRD (S/P/Bld) [Vol rate/Area] mL/min/{1.73_m2} >60 mL/min [facility] Work Phone: Glucose [Mass/Vol] 99 mg/dL 70 - 100 mg/dL [facility] Work Phone: Potassium [Moles/Vol] 3.6 mmol/L 3.5 - 5.1 mmol/L [facility] Work Phone: Sodium [Moles/Vol] 139 mmol/L 135 - 145 mmol/L [facility] Work Phone: Urea nitrogen (BldV) [Mass/Vol] 17 mg/dL 7 - 20 mg/dL [facility] Work Phone: LipaseOrdered By: Wes barrientos on 02-22-2021 Lipase [Catalytic activity/Vol] 192 U/L 23 - 300 U/L [facility] Work Phone: No Panel InformationOrdered By: Wes Wisdom on 02-22-2021 Test Performed by [employer] [facility], [address] [place] [id number] [facility] Work Phone: Troponin [id number] By: Ruben Wisdom on 02-22-2021 Troponin I.cardiac [Mass/Vol] ng/mL 0.000 - 0.034 ng/mL [facility] Work Phone: Comment on above: . Test Performed by [facility], [address] [place], [place] [address] [facility] Work Phone: US ABDOMEN LIMITED Specify o rgan? GALLBLADDEROrdered By: Tom Wiggins on 02-22-2021 Patient Name: HEAVEN POWER Ultrasound ACCESSION EXAM DATE/TIME PROCEDURE ORDERING PROVIDER [id number] 02/22/2021 15:28 EDT US Abdomen Limited DO WIGGINS EUGENE F. CPT code 06581 Reason For Exam (US Abdomen Limited) ruq abd pain Report Ultrasound right upper quadrant HISTORY: Right upper quadrant pain COMPARISON: 02/13/2019 Liver has a normal echotexture. Gallbladder adenomyomatosis. Gallbladder sludge. No gallstones. No gallbladder wall thickening. The common bile duct has a normal diameter 3.7 mm the pancreas is normal. Horseshoe kidneys noted. The right side measures 10.8 x 4.2 x 4.8 cm. No hydronephrosis. IMPRESSION: Gallbladder adenomyomatosis and sludge. Report Dictated on Workstation: [id number] --- Final --- Dictating Physician: MD BIANCHI MALAY Signed Date and Time: 02/22/2021 3:30 pm Signed by: MD BIANCHI MALAY Transcribed Date and Time: 02/22/2021 3:31 [facility] Work Phone: Aram, [facility] Incoming Radiology Results From [facility] - 02/22/2021 3:31 PM EDT Patient Name: HEAVEN POWER Ultrasound ACCESSION EXAM DATE/TIME PROCEDURE ORDERING PROVIDER [id number] 02/22/2021 15:28 EDT US Abdomen Limited DO WIGGINS EUGENE F. CPT code 47033 Reason For Exam (US Abdomen Limited) ruq abd pain Report Ultrasound right upper quadrant HISTORY: Right upper quadrant pain COMPARISON: 02/13/2019 Liver has a normal echotexture. Gallbladder adenomyomatosis. Gallbladder sludge. No gallstones. No gallbladder wall thickening. The common bile duct has a normal diameter 3.7 mm the pancreas is normal. Horseshoe kidneys noted. The right side measures 10.8 x 4.2 x 4.8 cm. No hydronephrosis. IMPRESSION: Gallbladder adenomyomatosis and sludge. Report Dictated on Workstation: [id number] --- Final --- Dictating Physician: MD BIANCHI MALAY Signed Date and Time: 02/22/2021 3:30 pm Signed by: MD BIANCHI MALAY Transcribed Date and Time: 02/22/2021 3:31 [facility] Work Phone: XR CHEST (2 VW)on 10-08-2020 Patient Name: HEAVEN POWER Diagnostic Radiology ACCESSION EXAM DATE/TIME PROCEDURE ORDERING PROVIDER [id number] 10/08/2020 09:49 EST CR Chest PA & LAT DO WIGGINS EUGENE FLeonor CPT code 56976 Reason For Exam (CR Chest PA & LAT) cough left rales Report Examination: PA/Lateral chest Indication: cough left rales Findings: Mild diffuse coarsening of interstitium is present. There is no focal consolidation, sizable pleural effusion or pneumothorax. The cardiac silhouette and mediastinum are within normal limits. Small to moderate osteophytes of the spine are present at multiple levels. There is mild scoliosis of the spine. Anterior cervical fusion is present. Impression: No radiographic evidence of acute cardiopulmonary process. Report Dictated on Workstation: [id number] --- Final --- Dictating Physician: MD AUSTIN KRIKOR Signed Date and Time: 10/08/2020 10:10 am Signed by: MD AUSTIN KRIKOR Transcribed Date and Time: 10/08/2020 10:12 [facility] [place] [facility], [facility] Incoming Radiology Results From [facility] - 10/08/2020 10:12 AM EST Patient Name: HEAVEN POWER Diagnostic Radiology ACCESSION EXAM DATE/TIME PROCEDURE ORDERING PROVIDER [id number] 10/08/2020 09:49 EST CR Chest PA & LAT DO WIGGINS EUGENE F. CPT code 73292 Reason For Exam (CR Chest PA & LAT) cough left rales Report Examination: PA/Lateral chest Indication: cough left rales Findings: Mild diffuse coarsening of interstitium is present. There is no focal consolidation, sizable pleural effusion or pneumothorax. The cardiac silhouette and mediastinum are within normal limits. Small to moderate osteophytes of the spine are present at multiple levels. There is mild scoliosis of the spine. Anterior cervical fusion is present. Impression: No radiographic evidence of acute cardiopulmonary process. Report Dictated on Workstation: [email or web address] --- Final --- Dictating Physician: MD AUSTIN KRIKOR Signed Date and Time: 10/08/2020 10:10 am Signed by: MD AUSTIN KRIKOR Transcribed Date and Time: 10/08/2020 10:12 [place], [place] Vital Signs Date Time Vital Sign Value Performing Clinician Facility 03-07-2025 16:23-0400 Body temperature 98.2 [degF] Dr. Miguel Regalado DO Work Phone: [facility] 03-07-2025 16:23-0400 Diastolic blood pressure 76 mm[Hg] Dr. Miguel Regalado DO Work Phone: [facility] 03-07-2025 16:23-0400 Heart rate 72 /min Dr. Miguel Regalado DO Work Phone: [facility] 03-07-2025 16:23-0400 Respiratory rate 16 /min Dr. Miguel Regalado DO Work Phone: [facility] 03-07-2025 16:23-0400 SaO2% (BldA) [Mass fraction] 100 % Dr. Miguel Regalado DO Work Phone: [facility] 03-07-2025 16:23-0400 Systolic blood pressure 146 mm[Hg] Dr. Miguel Regalado DO Work Phone: [facility] 03-07-2025 15:27-0400 Body height 160.[address] Miguel Regalado DO Work Phone: [facility] 03-07-2025 15:27-0400 Body mass index (BMI) [Ratio] 30.4 kg/m2 Dr. Miguel Regalado DO Work Phone: [facility] 03-07-2025 15:27-0400 Body weight 78.[address] Miguel Regalado DO Work Phone: [facility] 08-11-2022 01:12-0400 Diastolic blood pressure 70 mm[Hg] Lizett De La Paz MD Work Phone: [facility] 08-11-2022 01:12-0400 Heart rate 95 /min Lizett De La Paz MD Work Phone: [facility] 08-11-2022 01:12-0400 Respiratory rate 14 /min Lizett De La Paz MD Work Phone: [facility] 08-11-2022 01:12-0400 Systolic blood pressure 107 mm[Hg] Lizett De La Paz MD Work Phone: [facility] 08-10-2022 23:22-0400 Body temperature 99.5 [degF] Lizett De La Paz MD Work Phone: [facility] 08-10-2022 23:22-0400 SaO2% (BldA) [Mass fraction] 97 % Lizett De La Paz MD Work Phone: [facility] 08-10-2022 21:39-0400 Body height 160 cm Lizett De La Paz MD Work Phone: [facility] 08-10-2022 21:39-0400 Body mass index (BMI) [Ratio] 26.75 kg/m2 Lizett De La Paz MD Work Phone: [facility] 08-10-2022 21:39-0400 Body weight 68.49 kg Lizett De La Paz MD Work Phone: [facility] 01-07-2022 13:09-0400 Heart rate 107 /min Kamilla Flowers DO Work Phone: [facility] 01-07-2022 13:09-0400 SaO2% (BldA) [Mass fraction] 99 % Kamilla Flowers DO Work Phone: [facility] 01-07-2022 13:08-0400 Body temperature 97.81 [degF] Kamilla Flowers DO Work Phone: [facility] 01-07-2022 13:08-0400 Diastolic blood pressure 91 mm[Hg] Kamilla Lionel DO Work Phone: [facility] 01-07-2022 13:08-0400 Respiratory rate 18 /min Kamilla Flowers DO Work Phone: [facility] 01-07-2022 13:08-0400 Systolic blood pressure 158 mm[Hg] Kamillagene Flowers DO Work Phone: [facility] 03-02-2021 15:00-0400 Diastolic blood pressure 69 mm[Hg] Aiden Farrell MD Work Phone: [employer] Work Phone: 03-02-2021 15:00-0400 Heart rate 73 /min Aiden Farrell MD Work Phone: [employer] Work Phone: 03-02-2021 15:00-0400 Respiratory rate 21 /min Aiden Farrell MD Work Phone: [employer] Work Phone: 03-02-2021 15:00-0400 SaO2% (BldA) [Mass fraction] 99 % Aiden Farrell MD Work Phone: [employer] Work Phone: 03-02-2021 15:00-0400 Systolic blood pressure 129 mm[Hg] Aiden Farrell MD Work Phone: [employer] Work Phone: 03-02-2021 13:52-0400 Body temperature 97 [degF] Aiden Farrell MD Work Phone: [employer] Work Phone: 03-02-2021 12:18-0400 Body height 160 cm Aiden Farrell MD Work Phone: [facility] Work Phone: 03-02-2021 12:18-0400 Body mass index (BMI) [Ratio] 28.17 kg/m2 Aiden Farrell MD Work Phone: [facility] Work Phone: 03-02-2021 12:18-0400 Body weight 72.12 kg Aiden Farrell MD Work Phone: [facility] Work Phone: 02-26-2021 12:17-0400 Body height 160 cm Aiden Farrell MD Work Phone: [employer] Work Phone: 02-26-2021 12:17-0400 Body mass index (BMI) [Ratio] 28.56 kg/m2 Aiden Farrell MD Work Phone: [employer] Work Phone: 02-26-2021 12:17-0400 Body weight 73.12 kg Aiden Farrell MD Work Phone: [employer] Work Phone: 02-26-2021 12:17-0400 Diastolic blood pressure 80 mm[Hg] Aiden Farrell MD Work Phone: [facility] Work Phone: 02-26-2021 12:17-0400 Systolic blood pressure 144 mm[Hg] Aiden Farrell MD Work Phone: [facility] Work Phone: 02-26-2021 11:54-0400 Body temperature 97.7 [degF] Aiden Farrell MD Work Phone: [facility] Work Phone: 02-26-2021 11:54-0400 Heart rate 83 /min Aiden Farrell MD Work Phone: [employer] Work Phone: 02-26-2021 11:54-0400 Respiratory rate 18 /min Aiden Farrell MD Work Phone: [employer] Work Phone: 02-26-2021 11:54-0400 SaO2% (BldA) [Mass fraction] 97 % Aiden Farrell MD Work Phone: [employer] Work Phone: 02-22-2021 23:06-0400 Diastolic blood pressure 79 mm[Hg] Tom Salgadoa DO Work Phone: [employer] Work Phone: 02-22-2021 23:06-0400 Heart rate 68 /min Tom Salgadoa DO Work Phone: [employer] Work Phone: 02-22-2021 23:06-0400 SaO2% (BldA) [Mass fraction] 99 % Tom Salgadoa DO Work Phone: [employer] Work Phone: 02-22-2021 23:06-0400 Systolic blood pressure 97 mm[Hg] Tom Salgadoa DO Work Phone: [employer] Work Phone: 02-22-2021 21:44-0400 Body temperature 98.2 [degF] Tom Salgadoa DO Work Phone: [employer] Work Phone: 02-22-2021 21:44-0400 Respiratory rate 16 /min Tom Salgadoa DO Work Phone: [employer] Work Phone: Encounters Encounter Date Encounter Type Care Provider Facility Start: 03-07-2025 End: 03-07-2025 Emergency department patient visit Dr. Miguel Regalado DO Work Phone: -Emergency Department Work Phone: Start: 08-01-2023 End: 08-01-2023 ambulatory [facility] Facility:[facility] Start: 07-31-2023 ambulatory BLANCA ZHANG Facility:[facility] Start: 07-24-2023 Transcribe Orders Julieta Contreras MD Work Phone: [facility] Central Scheduling Start: 08-10-2022 End: 08-11-2022 Emergency department patient visit UNKNOWN PROVIDER [facility] Start: 08-10-2022 End: 08-11-2022 Emergency department patient visit Lizett De La Paz MD Work Phone: [facility] Comment on above: Acute UTI (Primary D x); Lower abdominal pain Start: 08-01-2022 ambulatory UNKNOWN PROVIDER [facility] Start: 08-01-2022 End: 08-01-2022 Subsequent hospital visit by physician Tom Wiggins DO Work Phone: [facility] Comment on above: Arrived Start: 01-27-2022 End: 01-27-2022 Emergency department patient visit UNKNOWN PROVIDER [facility] Start: 01-07-2022 End: 01-07-2022 Emergency department patient visit Kamilla Powellulloch DO Work Phone: [facility] ED Comment on above: COVID-19 (Primary Dx ) Start: 11-17-2021 ambulatory Tom Feliciano [facility] Start: 11-17-2021 End: 11-17-2021 Subsequent hospital visit by physician Tom Wiggins DO Work Phone: [facility] Comment on above: Neck pain; Lumbar pain Start: 03-02-2021 End: 03-02-2021 Subsequent hospital visit by physician Aiden Farrell MD Work Phone: [facility] General Surgery Comment on above: Gallbladder sludge ( Primary Dx); Biliary colic Start: 02-26-2021 End: 02-26-2021 Subsequent hospital visit by physician Aiden Farrell MD Work Phone: [facility] Pre-Admit Testing Comment on above: Arrived Start: 02-22-2021 End: 02-22-2021 Emergency department patient visit Tom Wiggins DO Work Phone: [facility] ED Comment on above: Right upper quadrant abdominal pain (Primary Dx); Gallbladder sludge; Adenomyomatosis of gallbladder Start: 02-22-2021 End: 02-22-2021 Subsequent hospital visit by physician Tom Wiggins DO Work Phone: [facility] Comment on above: RUQ abdominal pain Start: 10-08-2020 End: 10-08-2020 Subsequent hospital visit by physician Tom Wiggins Work Phone: [facility] Procedures Date Procedure Procedure Detail Performing Clinician Start: 08-11-2022 Computed tomography of abdomen and pelvis with contrast Lizett De La Paz MD Work Phone: Start: 08-10-2022 COVID-19, FLU A/B, AND RSV COMBO Lizett De La Paz MD Work Phone: Start: 08-10-2022 Urnls dip stick/tablet rgnt auto w/o microscopy Lizett De La Paz MD Work Phone: Start: 08-10-2022 Basic metabolic panel calcium total Lizett De La Paz MD Work Phone: Start: 08-01-2022 End: 08-01-2022 Screening digital breast tomosynthesis bi Tom Birgit Feliciano DO Work Phone: Start: 01-07-2022 Radiologic exam chest single view Kamilla Lionel DO Work Phone: Start: 12-29-2021 Colonoscopy Kamilla Lionel DO Work Phone: Start: 11-17-2021 Radex spine cervical 4 or 5 views Tom Genao Naomifito DO Work Phone: Start: 03-17-2021 End: 11-17-2021 History of cholecystectomy S/P laparoscopic cholecystectomy Tom Stahlcandelariafito DO Work Phone: Start: 03-02-2021 OPERATIVE REPORT 3m Scanning Start: 02-22-2021 Computed tomography of abdomen and pelvis with contrast Wes Wisdom WOOD WEB WEAVING MACHINE OPERATOR - TEXTILE CONSERVATOR Work Phone: Start: 02-22-2021 Ecg routine ecg w/least 12 lds w/i&r Wes Wisdom WOOD WEB WEAVING MACHINE OPERATOR - TEXTILE CONSERVATOR Work Phone: Start: 02-22-2021 Comprehensive metabolic panel Wes Wisdom WOOD WEB WEAVING MACHINE OPERATOR - TEXTILE CONSERVATOR Work Phone: Start: 02-22-2021 Us abdominal real time w/image limited Tom Wiggins DO Work Phone: Start: 01-05-2021 Microscopic observation [Identifier] in Cervix by Cyto stain Tom Wiggins DO Work Phone: Start: 10-08-2020 Radiologic exam chest 2 views Tom Wiggins Work Phone: Plan of Treatment Date Care Activity Detail Author Start: 12-30-2031 Screening for malign ant neoplasm of colon [facility] Start: 2031 RSV Immunization age d 60 or older (1 - 1-dose 60+ series) RSV Immunization aged 60 or older (1 - 1-dose 60+ series) [facility] Start: 07-15-2027 DTaP/Tdap/Td vaccine (2 - Td or Tdap) DTaP/Tdap/Td vaccine (2 - Td or Tdap) [facility] Start: 07-15-2027 DTaP/Tdap/Td vaccine (2 - Td) DTaP/Tdap/Td vaccine (2 - Td) [place] Start: 07-15-2027 DTaP/Tdap/Td Vaccine s (2 - Td or Tdap) DTaP/Tdap/Td Vaccines (2 - Td or Tdap) [facility] Start: 03-07-2025 [facility] Start: 01-06-2024 Screening for malign ant neoplasm of cervix [facility] Start: 01-05-2024 Lipid panel [facility] Start: 08-01-2023 Screening for malign ant neoplasm of breast [facility] Start: 06-23-2023 COVID-19 Vaccine ( season) COVID-19 Vaccine ( season) [facility] Start: 06-23-2023 Depression Screen Depression Screen [facility] Start: 06-23-2023 Influenza vaccination Influenza Vacc ine (#1) [facility] Start: 05-23-2022 Influenza vaccination Flu vaccine (# 1) [facility] Start: 03-01-2022 COVID-19 Vaccine (4 - Booster for Moderna series) COVID-19 Vaccine (4 - Booster for Moderna series) [facility] Start: 01-04-2022 Depression Screen Depression Screen [facility] Start: 12-18-2021 Screening for malign ant neoplasm of breast Breast cancer screen [facility] Start: 2021 Screening for malign ant neoplasm of lung Low dose CT lung screening [facility] Start: 2021 Shingles Vaccine (1 of 2) Shingles Vaccine (1 of 2) [facility] Start: 2021 Zoster Vaccines (1 of 2) Zoste r Vaccines (1 of 2) [facility] Start: 06-23-2021 Influenza vaccination Flu vacc ine (Season Ended) [facility] Work Phone: Start: 03-02-2021 End: 03-02-2021 Patient encounter procedure 03/02/2021 Appointment General Surgery Aiden Farrell MD [address] [place] [address], [address] [place], [place] [id number] [facility] General Surgery Start: 09-30-2020 Screening for malign ant neoplasm of cervix [facility] Start: 06-23-2020 Influenza vaccination Flu vaccine (# 1) [place] Start: 2016 Screening for malign ant neoplasm of colon [facility] Start: 2006 Diabetes screen Diabetes screen [facility] Start: 2001 Screening for malign ant neoplasm of cervix HPV/Cotest [facility] Start: 1989 Diabetes mellitus screening Diabetes Screening [facility] Start: 1989 Hepatitis C screening [facility] Start: 1987 COVID-19 Vaccine (1) COVID-19 Vaccin e (1) [facility] Work Phone: Start: 1986 HIV screening HIV screen [facility] Start: 1983 COVID-19 Vaccine (1) COVID-19 Vaccin e (1) [facility] Work Phone: Start: 1983 Depression Screen Depression Screen [facility] Start: 1983 Depression Screening Depression Scre ening [facility] Start: 1977 Pneumococcal 0-64 ye ars Vaccine (1 - PCV) Pneumococcal 0-64 years Vaccine (1 - PCV) [facility] Start: 1977 Pneumococcal 0-64 ye ars Vaccine (1 of 1 - PPSV23) Pneumococcal 0-64 years Vaccine (1 of 1 - PPSV23) [place] Start: 1977 Pneumococcal 0-64 ye ars Vaccine (1 of 2 - PPSV23) Pneumococcal 0-64 years Vaccine (1 of 2 - PPSV23) [facility] Start: 1977 Pneumococcal Vaccine : Pediatrics (0 to 5 Years) and At-Risk Patients (6 to 64 Years) (1 of 2 - PCV) Pneumococcal Vaccine: Pediatrics (0 to 5 Years) and At-Risk Patients (6 to 64 Years) (1 of 2 - PCV) [facility] Start: 1972 MMR Vaccines (1 of 1 - Standard series) MMR Vaccines (1 of 1 - Standard series) [facility] Start: 1971 Hepatitis B Vaccines (1 of 3 - 3-dose series) Hepatitis B Vaccines (1 of 3 - 3-dose series) [facility] Start: 1971 Hepatitis C screening Hepatitis C sc reen [facility] Start: 1971 HIV screening HIV Screening [facility] Start: 1971 Screening for malign ant neoplasm of colon [facility] End: 08-10-2022 Culture, Blood 2 [facility] Work Phone: Comment on above: One Time for 1 Occur rences starting 08/10/2022 until 08/10/2022 End: 08-10-2022 Culture, Urine [facility] Work Phone: Comment on above: One Time for 1 Occur rences starting 08/10/2022 until 08/10/2022 EKG 12 Lead - Chest Pain EKG 12 Lead - Chest Pain ECG STAT 02/22/2021 10:22 PM EDT [facility] Work Phone: End: 03-02-2021 Intermittent pulse oximetry Pulse Oximetry Spot Check Respiratory Care Routine One Time for 1 Occurrences starting 03/02/2021 until 03/02/2021 [facility] Work Phone: Comment on above: One Time for 1 Occur rences starting 03/02/2021 until 03/02/2021 End: 08-10-2022 Microscopic examination of blood, culture [facility] [employer] Work Phone: Comment on above: One Time for 1 Occur rences starting 08/10/2022 until 08/10/2022 Oxygen therapy [[facility] Data Set] Initiate Oxygen Therapy Protocol Respiratory Care Routine Daily until discontinued starting 03/02/2021 [employer] [employer] Work Phone: Comment on above: Daily until disconti nued starting 03/02/2021 Patient Education ED Hives (Adult) [facility] Work Phone: Patient referral [facility] Work Phone: Phase I & II - meter ed glucose Phase I & II - metered glucose Point of Care Testing Routine As Needed until discontinued starting 03/02/2021 [facility] Work Phone: Comment on above: As Needed until disc ontinued starting 03/02/2021 Spirometry panel Incentive babak metry Respiratory Care Routine Q1H PRN until discontinued starting 03/02/2021 [employer] [employer] Work Phone: Comment on above: Q1H PRN until discon tinued starting 03/02/2021 End: 08-10-2022 XR CHEST PORTABLE [employer] [employer] Work Phone: Comment on above: Once for 1 Occurrenc es starting 08/10/2022 until 08/10/2022 Immunizations Immunization Date Immunization Notes Care Provider Fa franci 11-01-2021 COVID-19, Moderna, Primary or Immunocompromised, PF, 100mcg/0.5mL Tom Wiggins DO Work Phone: [employer] Work Phone: 11-01-2021 Influenza, injectabl e, Madin Niya Canine Kidney, preservative free, quadrivalent Tom Wiggins DO Work Phone: [facility] Work Phone: 11-01-2021 influenza virus vaccine, unspecified formulation Julieta Contreras MD Work Phone: [facility] 04-15-2021 COVID-19, Moderna, Primary or Immunocompromised, PF, 100mcg/0.5mL Tom Wiggins DO Work Phone: [facility] 03-18-2021 COVID-19, Moderna, Primary or Immunocompromised, PF, 100mcg/0.5mL Tom Wiggins DO Work Phone: [facility] Work Phone: 07-15-2017 tetanus toxoid, redu batsheva diphtheria toxoid, and acellular pertussis vaccine, adsorbed Tom Wiggins [facility] Payers Date Payer Category Payer Private Health Insurance [id number] [id number] Self-pay 2020 Unknown [id number] 2020 Unknown BCBS [place] P PO [id number] 2020-Present [address] [place] [address] [id number] 1971 Unknown [id number] 1971 Unknown [id number] 1971 Unknown [id number] 1971 Unknown [id number] 1971 Unknown [id number] Private Health Insurance [facility] [id number] Unknown Unknown [id number] Social History Date Type Detail Facility Start: 10-08-2020 End: 03-07-2025 Tobacco smoking status TXIS Current every day smoker [facility] History of tobacco use Cigarette Smoker M [place] Start: 10-08-2020 End: 10-11-2022 Cigarettes smoked current (pack per day) - Reported [place] Start: 10-08-2020 End: 12-27-2021 Tobacco use and exposure Never used [place] Start: 10-08-2020 End: 10-11-2022 Alcohol intake Current drinker of alcohol (finding) [place] Start: 09-04-2020 History SDOH Alcohol Frequency 2 [place] Start: 09-04-2020 End: 11-17-2021 History SDOH Alcohol Std Drinks 1 [place] Start: 09-04-2020 End: 11-17-2021 History SDOH Social Connections Phone 5 [place] Start: 09-04-2020 History SDOH Social Connections Living 3 [place] Start: 09-04-2020 History SDOH Physica l Activity DPW 0 [place] Sex Assigned At Not on file [place] Start: 07-31-2022 End: 08-10-2022 Exposure to SARS-CoV-2 (event) Not sure [facility] Start: 1970 Sex Assigned At Female [facility] Start: 12-27-2021 Tobacco smoking stat [facility] Occasional tobacco smoker [facility] Start: 12-28-2021 End: 01-07-2022 Exposure to SARS-CoV-2 (event) Yes [facility] Start: 08-10-2022 History SDOH Alcohol Comment socially [facility] Work Phone: Start: 10-11-2022 Tobacco use panel [facility] Start: 08-11-2022 Sexual orientation Heterosexual (fin arlyn) [facility] Clinical Notes 02-26-2021 to 08-01-2023 InstructionsAttachmentsInstructionsInstructionsAttachments Note Date & Type Note Facility 08-01-2023 Note HNO ID: [id number] Author: Kamila Cabrera RDMS Service: ? Author Type: Global Transportation Manager Type: Progress Notes Filed: 08/01/2023 3:39 PM Note Text: Radiology Service Progress Note PATIENT NAME: [employer] DATE OF SERVICE: August 01, 2023 TIME: 3:39 PM PATIENT IDENTITY VERIFICATION COMPLETED USING TWO (2) IDENTIFIERS: Name and Date of confirmed by patient verbally. FALL SCREENING: Has the patient had 2 falls in the last year or 1 fall with injury or currently using an Ambulatory Assistive Device (Walker, Cane, Wheelchair, Crutches, etc.)? No PATIENT GENDER DATA: Female. status: : No status: NO. PATIENT RELEVANT IMPLANT DATA REVIEWED: Not Applicable RADIOLOGY DEPARTMENT: Ultrasound PERIPHERAL IV DATA: Not applicable SIGNED BY: Kamila Cabrera RDMS August 01, 2023 3:39 PM [facility] 08-01-2023 Note HNO ID: [id number] Author: Terri Rodriguez Mammo Tech Service: ? Author Type: Global Transportation Manager Type: Progress Notes Filed: 08/01/2023 2:02 PM Note Text: Radiology Service Progress Note PATIENT NAME: [employer] DATE OF SERVICE: August 01, 2023 TIME: 1:23 PM PATIENT IDENTITY VERIFICATION COMPLETED USING TWO (2) IDENTIFIERS: Name and Date of confirmed by patient verbally. FALL SCREENING: Has the patient had 2 falls in the last year or 1 fall with injury or currently using an Ambulatory Assistive Device (Walker, Cane, Wheelchair, Crutches, etc.)? No PATIENT GENDER DATA: Female. status: : No status: NO. PATIENT RELEVANT IMPLANT DATA REVIEWED: Not Applicable RADIOLOGY DEPARTMENT: Mammography PERIPHERAL IV DATA: Not applicable SIGNED BY: Jamshid Sánchez August 01, 2023 1:23 PM [facility] 01-07-2022 Hospital DischKamilla Dockery, - 01/07/2022 Return for worsening shortness of breath, take steroids and obtain pulse oximeter if oxygen level less than 92% come back to the emergency department. The following attachments cannot be sent through Care Everywhere.Coronavirus Disease (COVID-19): General Info (Albanian)Coronavirus Disease (COVID-19): Isolation (Albanian)documented in this encounter [facility] Work Phone: 03-02-2021 Hospital Discharg e Aiden Villa MD - 03/02/2021 POST-OPERATIVE INSTRUCTIONS LAPAROSCOPIC SURGERY Thank you very much for allowing me to participate in your care, it is truly a privilege. Below please see discharge orders that will help you during your recovery. Please do not hesitate to call the office at [phone] for any questions. After hours, the same number will allow you to reach the on-call surgeon. ? Call the office to schedule your post-operative appointment with Dr. Farrell or PA/CLIENT COORDINATOR for 2 weeks if not already scheduled. o (May need to be seen before 2 weeks if stitches and/or drains present) ? Change bandages daily or more frequently if needed. o Keep incisions clean with soap/ water daily. (Peroxide OK as well) o Cover incision(s) as needed. o Please remove the Steri-Strips 5 days after surgery. You may be instructed by nursing staff to either leave them on until you see Dr. Farrell or they will fall off on their own. Neither is true. Please remove the Steri-Strips as instructed 5 days after your date of surgery. This includes any clear bandages and gauze placed in the navel, if applicable. o If you have skin glue this will come off on its own ? May place an ice pack over your incisions on and off (15min) at a time for the next 24-48 hours. ? Resume regular diet as tolerated (recommend starting with liquids) ? General guidelines for activity: Avoid strenuous activity or lifting anything heavier than 15 pounds. It is OK to be up and walking around. Going up and down stairs is also OK. Do what is comfortable: stop and rest when you feel tired. It is OK to shower after 24 hours ? You will have pain medicine ordered. Take as directed/needed. ? Some discomfort, mild bruising, and swelling are not unusual; please call my office if you have any severe pain, hemorrhage, or high fever (over 101 F) ? During the laparoscopic procedure that you had, gas is pumped into the abdominal cavity. You may feel abdominal, shoulder, or rib pain for a few days due to this. ? Resume home medications (see medication reconciliation sheet) ? Do NOT drive for one day and while taking your narcotic pain medicine. ? Watch for signs of infection: Excessive warmth or bright redness around your incisions Leakage of bloody or cloudy fluid from you incisions Fever over 100.5 ? If you experience constipation o Increase your water intake. o Increase your activity; walking is best. o An over the counter stool softener or mild laxative may be necessary if you still have not had a bowel movement after several days. Please call the office at [phone] for any questions and too make your post op appointment if needed. Thank you again for allowing me to participate in your care, and get well soon! Aiden Farrell MD FACS documented in this encounter [facility] Work Phone: 02-26-2021 [facility] Discharg Anitra Bihsop RN - 02/26/2021 ARRIVE 2 HOURS PRIOR TO SURGERY BE AT THE HOSPITAL AT 1130 Bring a photo ID and insurance card Have a responsible adult that will be able to take you home and will be able to stay with you when you are home. NO FOOD AFTER MIDNIGHT THE NIGHT BEFORE SURGERY This includes candy, gum, and mints MAY have CLEAR LIQUIDS (WATER, APPLE JUICE, CRANBERRY JUICE, BLACK COFFEE, TEA, CARBONATED POP GATORADE) To drink until arrival time for surgery *(NOTE: IF YOU ARE A DIABETIC AVOID HIGH SUGAR BEVERAGES)* Wear loose comfortable clean clothing that you can go home in Leave all jewelry, contact lenses and valuables at home ONLY ONE visitor is permitted at this time Bring printed medication list with you Write the date and times of last dose DO NOT USE alcohol, recreational drugs or tobacco products for 24 hours before surgery Please write down any questions that you may have for your surgeon, anesthesiologist, Etc. Do not take ibuprofen 24 hours before surgery. No aleve 3 days before surgery. May take tylenol for pain if needed The following attachments cannot be sent through Care Everywhere.Cholecystectomy: General Info (Albanian)Cholecystectomy: Post-op (Albanian)Cholecystectomy: Pre-op (Albanian)documented in this encounter [facility] Work Phone: Evaluation note Diagnosis Right upper quadrant abdominal pain- Primary Abdominal pain, right upper quadrant Gallbladder sludge Calculus of gallbladder without mention of cholecystitis or obstruction Adenomyomatosis of gallbladder documented in this encounter [facility] Work Phone: Evaluation note* Diagnosis RUQ abdominal pain Abdominal pain, right upper quadrant documented in this encounter [facility] Work Phone: Evaluation note* Diagnosis Gallbladder sludge- Primary Calculus of gallbladder without mention of cholecystitis or obstruction Biliary colic Calculus of gallbladder without mention of cholecystitis or obstruction documented in this encounter [facility] Work Phone: Evaluation note* Diagnosis Neck pain Cervicalgia Lumbar pain Lumbago documented in this encounter [facility] Work Phone: Evaluation note* Diagnosis COVID-19- Primary documented in this encounter [facility] Work Phone: Evaluation note* Diagnosis Acute UTI- Primary Urinary tract infection, site not specified Lower abdominal pain Abdominal pain, other specified site documented in this encounter [facility] Work Phone: Evaluation noteNo assessment information available [facility] Work Phone: Hospital Discharge instructions* Attachments The following attachments cannot be sent through Care Everywhere. * Abdominal Pain (Albanian) * Cholecystectomy: General Info (Albanian) [facility] Work [facility]: Hospital Discharge instructions* Attachments The following attachments cannot be sent through Care Everywhere. * Abdominal Pain (Albanian) * UTI (Urinary Tract Infection): Female ([place]banian) [facility] Work Phone: Hospital Discharge instructions Additional Instructions You can continue Benadryl every 6 hours as needed. 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 No March 07, 2025 3:44pm Reason for Referral Status Reason Specialty Diagnoses / Procedures Referred By Contact Referred To Contact Open Specialty Services Required General Surgery Diagnoses Right upper quadrant abdominal pain Gallbladder sludge Adenomyomatosis of gallbladder Wes Wisdom, WOOD WEB WEAVING MACHINE OPERATOR - TEXTILE CONSERVATOR [address] [place] [address] David Kent MD [address] [place] [address] Scheduling Instructions [facility] General Surgery - David Kent MD [address] [place] [address] Status Reason Specialty Diagnoses / Procedures Referre d By Contact Referred To Contact Open Radiology Diagnoses RUQ abdominal pain Procedures US ABDOMEN LIMITED Tom Wiggins, DO [address] [place] [address] Summary Purpose Family History No Family History Records FoundNo Family History Records FoundNo Family History Records Found Chief Complaint and Reason for Visit Chief Complaint Admit Date rash March 07, 2025 3:26p m Additional Source Comments Reason for Visit (unrecogniz ed section and content) Reason Comments Abdominal Pain Reason Comments Positive For Covid-19 Reason Comments Urinary Frequency +pain, burning, spas ms and frequency with urination, +fever, lower pelvic/abdominal pain Ordered Prescriptions (unrec ognized section and content) Prescription Sig Dispensed Refills Start Date End Da te oxyCODONE-acetaminophen (PERCOCET) 5-325 MG per tabletIndications:Gallbla dder sludge,Biliary colic Take 1 tablet by mouth every 6 hours as needed for Pain for up to 5 days. 10 tablet 0 03/02/2021 03/07/2021 Prescription Sig Dispensed Refills Start Date End Da te albuterol sulfate HFA (VENTOLIN HFA) 108 (90 Base) MCG/ACT inhaler Inhale 2 puffs into the lungs 4 times daily as needed for Wheezing 18 g 0 01/07/2022 predniSONE (DELTASONE) 50 MG tablet Take 1 tablet by mouth daily for 5 days 5 tablet 0 01/07/2022 01/12/2022 Prescription Sig Dispensed Refills Start Date End Da te phenazopyridine (PYRIDIUM) 100 MG tablet Take 1 tablet by mouth 3 times daily as needed for Pain (dysuria) 10 tablet 0 08/11/2022 08/14/2022 cephALEXin (KEFLEX) 500 MG capsule Take 1 capsule by mouth 3 times daily for 5 days 15 capsule 0 08/11/2022 08/16/2022 Care Teams (unrecognized sec tion and content) Supervisor Felling Bucking Relationship Specialty Start Date End Date Tom Wiggins, DO [address] [place] [address] PCP - General Family Medicine 01/07/19 Supervisor Felling Bucking Relationship Specialty Start Date End Date Tom Wiggins, DO [address] [place], [place] [id number] PCP - General Family Medicine 01/07/19 Supervisor Felling Bucking Relationship Specialty Start Date End Date Tom Wiggins, DO [address] [place], [place] [id number] PCP - General Family Medicine 01/07/19 Supervisor Felling Bucking Relationship Specialty Start Date End Date Tom Wiggins, DO [address] [place] [address] PCP - General Family Medicine 01/07/19 Supervisor Felling Bucking Relationship Specialty Start Date End Date Tom Wiggins, DO [address] [facility] [address] [place] [id number] PCP - General 01/07/19 Team Status: Active Member Role Status Dates No Primary Care Physician Primary Care Provider Active Team Status: Inactive Member Role Status Dates Dr. Miguel Regalado , Emergency Provider Active Start: March 07, 2025 End: March 07, 2025 No Primary Care Physician Primary Care Provider Active Start: March 07, 2025 End: March 07, 2025 Scheduled Active and Recently Administ ered Medications (unrecognized section and content) Medication Order 01/05/2022 01/06/2022 01/07/2022 dexamethasone (DECADRON) tablet 6 mg (COMPLETED) 6 mg, Oral, ONCE, On Mon01/07/22 at 1344, For 1 dose 1449 (Given - Provid er: Ping Davis RN) Scheduled Medication Order 08/09/2022 08/10/2022 08/11/2022 0.9 % sodium chloride bolus (COMPLETED) 500 mL (7.3 mL/kg), IntraVENous, at 247.9 mL/hr, Administer over 121 Minutes, ONCE, On Mon08/10/22 at 2150, For 1 dose 2206 (New Bag - Provider: Roxanne Oropeza RN) 0015 (Stopped - Provider: Roxanne Oropeza RN) cephALEXin (KEFLEX) capsule 500 mg (COMPLETED) 500 mg, Oral, ONCE, 1 dose, On Elsa 08/11/22 at 0101, Antimicrobial Indications: Urinary Tract Infection 0111 (Given - Provid er: Roxanne Oropeza RN) ibuprofen (ADVIL;MOTRIN) tablet 600 mg (COMPLETED) 600 mg, Oral, ONCE, 1 dose, On Mon08/10/22 at 2202, Do not crush or chew. 2207 (Given - Provider: Roxanne Oropeza RN) phenazopyridine (PYRIDIUM) tablet 200 mg (COMPLETED) 200 mg, Oral, ONCE, 1 dose, On Elsa 08/11/22 at 0101, Take with food. May cause discoloration of urine. 0111 (Given - Provid er: Roxanne Oropeza RN) sodium chloride flush 0.9 % injection 3 mL(Linked Group 1) 3 mL, IntraVENous, EVERY 8 HOURS, First dose on Mon08/10/22 at 2150, Until Discontinued, Flush line with 3-5 mL 2150 (Due) 0550 (Due)1350 (Due)2150 (Due) Linked Groups Order Group 1: Saline lock IV (COMPLETED) Routine, CONTINUOUS, Starting on Mon08/10/22 at 2200, Until Specified And sodium chloride flush 0.9 % injection 3 mLJump to med 3 mL, IntraVENous, EVERY 8 HOURS, First dose on Mon08/10/22 at 2150, Until Discontinued
Flush line with 3-5 mL
INFORMATION SOURCE (unrecogn ized section and content) DATE CREATED AUTHOR 08/16/2022 [facility] DATE CREATED AUTHOR AUTHOR'S ORGANIZ ATION 08/02/2023 [facility] DATE CREATED AUTHOR AUTHOR'S ORGANIZ ATION 03/20/2025 [facility] Goals (unrecognized section and content) Goals may be documented in a n alternate section FOR RECORDS PERTAINING TO PATIENTS WHO ARE OR HAVE BEEN ENROLLED IN A CHEMICAL DEPENDENCY/SUBSTANCEABUSE PROGRAM, SOME INFORMATION MAY BE OMITTED. This clinical summary was aggregated from multiple sources. Caution should be exercised in using it in the provision of clinical care. This summary normalizes information from multiple sources, and as a consequence, information in this document may materially change the coding, format and clinical context of patient data. In addition, data may be omitted in some cases. CLINICAL DECISIONS SHOULD BE BASED ON THE PRIMARY CLINICAL RECORDS. [employer] provides no warranty or guarantee of the accuracy or completeness of information in this document.
[2025-04-13 14:05] LABS: Lipase 54 U/L (13-75)
[2025-04-13 14:10] LABS: ALB/GLOB Ratio 1.5 RATIO (0.9-2.4); AST(SGOT) 33 U/L (<=31); Alanine Aminotransfer ALT/SGPT 20 U/L (<=34); Albumin, Serum 4.2 g/dL (3.5-5.0); Alkaline Phosphatase 109 U/L (35-104); Anion Gap 14 (5-15); BUN 17 mg/dL (4-19); BUN/Creat Ratio 16.4 RATIO (10-20); Calcium,Total 9.8 mg/dL (7.6-11.0); Carbon Dioxide 25.1 mmol/L (21.0-32.0); Chloride 102 mmol/L (98-108); Creatinine, Serum 1.06 mg/dL (0.70-1.20); EST Glomerular Filtration Rate 63 (>60); Globulin 2.9 g/dL (2.2-4.2); Glucose 91 mg/dL (70-99); Potassium 4.2 mmol/L (3.3-5.1); Protein, Total 7.1 g/dL (5.9-8.4); Sodium Level 141 mmol/L (133-145); Total Bilirubin 0.55 mg/dL (0.00-1.30)
[2025-04-13] MEDS: Mag Hydrox/Al Hydrox/Simeth 30 ML UDC PO (14:24)
[2025-04-13] MEDS: Lidocaine 2% Viscous15 ML UDC 15 ML PO (14:24)
[2025-04-13 14:43] VITALS: BP 147/82; PULSE 88; RESP 12; O2SAT 97
[2025-04-13 15:33] VITALS: BP 141/88; PULSE 86; RESP 12; TEMP 36.8; O2SAT 98
== END 2025-04-13 15:37 | disposition home or self-care (01) ==
PROVIDERS: Physician Assistant; Emergency Provider Emergency Medicine; Visit Provider Emergency Medicine
DX: R10.13 Epigastric pain (principal); R10.11 Right upper quadrant pain; R11.2 Nausea with vomiting, unspecified; R74.8 Abnormal levels of other serum enzymes; R74.01 Elevation of levels of liver transaminase levels; F17.290 Nicotine dependence, other tobacco product, uncomplicated; Z91.148 Patient's other noncompliance with medication regimen for other reason; Z87.19 Personal history of other diseases of the digestive system; Z90.49 Acquired absence of other specified parts of digestive tract
CPT/HCPCS: 80053; 83690; 85025; 96374; 96375; 99283; A4216; J2405

== ENCOUNTER 2025-04-15 13:38 | Emergency (ER) | payer OTHER, SELFPAY ==
[2025-04-15 13:40] VITALS: BP 139/91; PULSE 100; RESP 18; TEMP 36.2; O2SAT 97; BMI 29.9
--- NOTE | 2025-04-15 14:11 | ED.RN ---
Pt states I'm just going to leave. Pt LWBS.
== END 2025-04-15 14:10 | disposition left against medical advice (07) ==
LOC: ED 14:13
DX: Z53.21 Procedure and treatment not carried out due to patient leaving prior to being seen by health care provider (principal)

== ENCOUNTER 2025-04-30 12:34 | Day surgery (SDC) | payer OTHER, SELFPAY ==
[2025-04-30] VITALS (9 sets, daily range): BP systolic 117–142; BP diastolic 76–85; PULSE 64–94; RESP 16; TEMP 36.3–36.9; O2SAT 97–99; BMI 29.7
--- NOTE | 2025-04-30 13:05 | PCM.HP.STD ---
HPI - General General Date of Admission: 04/30/25 Date of Service: 04/30/25 HPI Narrative HEAVEN POWER, is a 54 F who presents Chief Complaint: ER f/u abdominal pain [facility] ED 04.13.25 with epigastric and RUQ pain x1 month. Comes in episodes. Pt drinks about a sixpack of twisted tea 3 times per week. Hx of gastric ulcer. Discontinued PPI. Cholecystectomy 5 years ago. Work up with normal CBC, CMP and lipase. Given GI cocktail and discharged. Pt here today for evaluation after ED. Pt has had issues with epigastric pain for many years but worsening over the past few months. Pt pain is constant and dull. It will become sharp at some points. She has constant nausea, early satiety and vomiting. SHe feels her food sits in her stomach. SHe has been on pantoprazole for many years just once a day. She has constipation alternating with loose stools. She notes she has had constipation since she was a child. She has diarrhea after eating certain foods which started after getting her gallbladder out. Last EGD and colonoscopy in 2019 with normal findings. She has also been struggling with whole body hives which she ahs been told is related to anxiety. SHe started taking aloe, papaya and black walnut supplements for this. SHe does not take daily NSAIDs but has in the past for back pain. [facility] Medical History Wears dentures Wears glasses Anxiety Alcohol use Rash Arthritis History of renal disease Excessive bleeding Easy bruising Back pain Injury of head and neck History of ulceration Gastric reflux Vapes nicotine containing substance Former smoker History of pain when walking Stomach ulcer Renal agenesis Home Medications ?Medication ?Instructions ?Recorded ?Last Taken ?Type famotidine 20 mg tablet (Acid 20 mg PO DAILY 04/13/25 04/13/25 History Controller) fexofenadine 180 mg tablet 180 mg PO DAILY 04/13/25 04/13/25 History (Elli Hives) ibuprofen 200 mg tablet (Advil) 400 mg PO Q6H PRN fever or pain 04/13/25 04/13/25 History ondansetron 4 mg disintegrating 4 mg PO Q8H PRN PRN Nausea #10 tabs 04/13/25 Unknown Rx tablet aloe vera 5,000 mg capsule 5,000 mg PO DAILY 04/22/25 04/22/25 History black walnut pen[place] 450 mg capsule 450 mg PO DAILY 04/22/25 04/22/25 History carica papaya 1 tab PO DAILY 04/22/25 04/22/25 History albuterol sulfate 90 mcg/actuation 2 puff inhalation 4X/DAY PRN PRN 04/29/25 Unknown History aerosol inhaler shortness of breath or wheezing pantoprazole 40 mg tablet,delayed 40 mg PO DAILY 04/29/25 Unknown History release Allergy/AdvReac Type Severity Reaction Status Date / Time aspirin Allergy Rash Verified 04/30/25 13:01 codeine Allergy Rash Verified 04/30/25 13:01 latex AdvReac Severe Rash Verified 04/30/25 13:01 Surgical History Hx of dilation and curettage Hx of section Hx of surgical procedure Hx of left knee surgery Hx of cervical spine surgery Hx of cholecystectomy Social History Smoking Status: Current every day smoker tobacco type: e-cigarettes ROS Constitutional Constitutional: Denies fatigue, fever(s), poor appetite, weight gain or weight loss Gastrointestinal Gastrointestinal: Denies belching, bloating, change in bowel habits, change in stool character, chewing difficulty, coffee ground emesis, constipation, cramping, diarrhea, dyspepsia, dysphagia, early satiety, excessive flatus, fecal incontinence, heartburn, hematemesis, hematochezia, hemorrhoids, loose stools, melena, nausea, odynophagia, rectal bleeding, tenesmus, vomiting or weight changes Physical Exam Const alert, oriented x3, no apparent distress and healthy appearing General Appearance: cooperative GI normal to inspection, nondistended, normoactive bowel sounds, soft to palpation, non-tender and non-distended Percussion: normal to percussion Rectal Exam: deferred Assessment & Plan Assessment/Plan (1) Loose stools: (2) Constipation: (3) Epigastric pain: PLAN: Assessment and Plan Assessment and Plan (1) Epigastric pain: Status: Acute Plan: Heaven is a 54 yo female pt here today for follow up after ED visit for epigastric pain, n/v and early satiety. She is s/p cholecystectomy about 5 years ago and since then has had intermittent diarrhea with certain foods. This is likely bile acid diarrhea. She has chronic dull epigastric pain that has been getting worse and vomiting in episodes of sharp unbearable pain. She has been on PPI for many years. Will increase pantoprazole to 40 mg BID and she make increase frequency of Pepcid to 4x per day PRN. She endorses a prior hx of gastric ulcers. She denies current NSAIDs use. SHe will undergo EGD to evaluate her upper GI tract for inflammation or ulcers. She will also undergo colonoscopy at the same time due to the change in her bowel habits. -EGD and colon -Increase PPI ad H2 romaine -f/u after procedures (2) Nausea & vomiting: Status: Inactive (3) Constipation: Status: Acute (4) Loose stools: Status: Acute (5) Hx of cholecystectomy: Status: Acute Medications: New pantoprazole 40 mg PO BID 60 tabs 3RF
[2025-04-30] MEDS: Lactated Ringers 1,000 ML 15 ML IV (13:21)
--- NOTE | 2025-04-30 13:36 | PRE.ANES_ITS ---
ASA Classification* ASA Classification ASA Classification: 2 Assessment & Plan Anesthesia* Anesthesia Assessment Anesthesia Assessment: Discussed sedation and/or anesthesia options, risks, benefits, and alternatives with patient/parents/legal guardian/POA. Questions invited. The patient/parents/legal guardian/POA seems to understand and agrees to proceed with anesthesia plan. Reviewed the physical assessment, medical history, allergy history and patient home medications list prior to surgery/procedure/anesthetic and documented any changes. Performed airway and anesthesia risk assessments. Anesthesia Type Anesthesia Type: MAC History Source History Obtained from:: Patient and Chart Anesthesia Focused Assessment* Temperature: 98.5 F Pulse Rate: 76 Blood Pressure: 141/84 Respiratory Rate: 16 Pulse Ox: 97 Oxygen Delivery Method: Room Air Airway Assessment Mouth opens: >3 cm Mallampati Score: I Teeth Condition: Dentures and Upper Labs Anesthesia Preop lab: CBC WBC 11.9 K/mm3 (4.4-11.0) H 04/13/25 13: 5 RBC 4.19 M/mm3 (4.2-5.4) L 04/13/25 13:04/13/25 Hgb 13.6 g/dL (12.0-15.0) 04/13/25 13:04/13/25 Hct 40.2 % (37-47) 04/13/25 13:04/13/25 Plt Count 280 K/mm3 (150-450) 04/13/25 13:31 04/13/25 CHEMISTRY Potassium 4.2 mmol/L (3.3-5.1) 04/13/25 13:04/13/25 Sodium 141 mmol/L (133-145) 04/13/25 13:31 04/13/25 BUN 17 mg/dL (4-19) 04/13/25 13:04/13/25 Creatinine 1.06 mg/dL (0.70-1.20) 04/13/25 13:04/13/25 Glucose 91 mg/dL (70-99) 04/13/25 13:04/13/25 COAG Pre-Assessment Diagnosis/Proposed Procedure Planned Operative Procedure(s): COLONOSCOPY/EGD Anesthesia History 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 When Was Last Pacemaker Check QUESTION #4 FULL TEXT: You/Your Family Experience fever (hyperthermia) with Anesthesia Last Oral Intake Last Oral intake: Last Oral Intake NPO since 10:30 04/30/25 13:03 Meds taken in AM with sips of No 04/30/25 13:03 water? 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 Female Yes 04/29/25 15:01 HX of Motion Sickness Yes 04/29/25 15:01 HX of N/V After Surgery Yes 04/29/25 15:01 Non-Smoker No 04/29/25 15:01 Duration of Surgery greater No 04/29/25 15:01 than 60 minutes Number of Risk Factors 3 04/29/25 15:01 PONV Score Moderate Risk 04/29/25 15:01 Height & Weight Height & Weight: Anesthesia: Height & Weight Height 5 ft 3 in 04/30/25 13:03 Weight: 76 kg 04/30/25 13:03 Body Mass Index (BMI) 29.7 04/30/25 13:03 Respiratory Assessment Respiratory Assessment - professional bass fisher: Respiratory Tract Infection Hx - professional bass fisher Hx Respiratory Tract Infection No 04/29/25 15:01 STOP Sleep Apnea STOP Sleep Apnea - professional bass fisher: STOP Sleep Apnea - professional bass fisher Hx Hypertension No 04/29/25 15:01 Hx Sleep Apnea No 04/29/25 15:01 CPAP BIPAP Do you snore loudly (louder No 04/29/25 15:01 than talking or can be heard Do you often feel tired/ No 04/29/25 15:01 fatigued/ sleepy during daytime? Has anyone observed you stop No 04/29/25 15:01 breathing during sleep? STOP Results Negative 04/29/25 15:01 QUESTION #5 FULL TEXT : Do you snore loudly (louder than talking or can be heard through closed doors)? 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 Specify any problems Hx of Preganancy in last 3 No 04/29/25 15:01 Months Nurse Filling Out Transfusion VCHRISTIN 04/29/25 15:01 & Questions: Date: 04/29/25 04/29/25 15:01 Time: 15:02 04/29/25 15:01 Patient unable to answer at this time (ie. confused, unrespo /Reproduction History /Reproductive History - professional bass fisher: /Reproductive Hx- professional bass fisher Hx Now No 04/29/25 15:01 Gestational Age (in weeks): EDC: Hx Hx Para Hx Section SAB No 04/29/25 15:01 Active Medications Active Medications: Current Medications Generic Name Dose Route Start Last Admin Trade Name Freq PRN Reason Stop Dose Admin Lactated Ringer's 1,000 mls @ 15 mls/hr 04/30/25 13:00 04/30/25 13:21 IV 15 mls/hr .Q48H REGINO Administration PFSH Medical History Wears dentures Wears glasses Anxiety Alcohol use Rash Arthritis History of renal disease Excessive bleeding Easy bruising Back pain Injury of head and neck History of ulceration Gastric reflux Vapes nicotine containing substance Former smoker History of pain when walking Stomach ulcer Renal agenesis Home Medications ?Medication ?Instructions ?Recorded ?Last Taken ?Type famotidine 20 mg tablet (Acid 20 mg PO DAILY 04/13/25 04/13/25 History Controller) fexofenadine 180 mg tablet 180 mg PO DAILY 04/13/25 History (Elli Hives) ibuprofen 200 mg tablet (Advil) 400 mg PO Q6H PRN feve r or pain 04/13/25 04/13/25 History ondansetron 4 mg disintegrating 4 mg PO Q8H PRN PRN Na usea #10 tabs 04/13/25 Unknown Rx tablet aloe vera 5,000 mg capsule 5,000 mg PO DAILY 04/22/25 04/22/25 History black walnut [place] 450 mg capsule 450 mg PO DAILY 04/2204/22/25 History carica papaya 1 tab PO DAILY 04/22/2511/16 History albuterol sulfate 90 mcg/actuation 2 puff inhalation 4 X/DAY PRN PRN 04/29/25 Unknown History aerosol inhaler shortness of breath or wheez ing pantoprazole 40 mg tablet,delayed 40 mg PO DAILY 04/29 Unknown History release Allergy/AdvReac Type Severity Reaction Status Date / Time aspirin Allergy Rash Verified 04/30/25 13:01 codeine Allergy Rash Verified 04/30/25 13:01 latex AdvReac Severe Rash Verified 04/30/25 13:01 Surgical History Hx of dilation and curettage Hx of section Hx of surgical procedure Hx of left knee surgery Hx of cervical spine surgery Hx of cholecystectomy Social History Smoking Status: Current every day smoker tobacco type: e-cigarettes Review of Systems (Anesthesia) ROS Narrative System reviewed and no additional complaints, except as documented.
--- NOTE | 2025-04-30 13:36 | PRE.ANES_ITS ---
ASA Classification* ASA Classification ASA Classification: 2 Assessment & Plan Anesthesia* Anesthesia Assessment Anesthesia Assessment: Discussed sedation and/or anesthesia options, risks, benefits, and alternatives with patient/parents/legal guardian/POA. Questions invited. The patient/parents/legal guardian/POA seems to understand and agrees to proceed with anesthesia plan. Reviewed the physical assessment, medical history, allergy history and patient home medications list prior to surgery/procedure/anesthetic and documented any changes. Performed airway and anesthesia risk assessments. Anesthesia Type Anesthesia Type: MAC History Source History Obtained from:: Patient and Chart Anesthesia Focused Assessment* Temperature: 98.5 F Pulse Rate: 76 Blood Pressure: 141/84 Respiratory Rate: 16 Pulse Ox: 97 Oxygen Delivery Method: Room Air Airway Assessment Mouth opens: >3 cm Mallampati Score: I Teeth Condition: Dentures and Upper Labs Anesthesia Preop lab: CBC WBC 11.9 K/mm3 (4.4-11.0) H 04/13/25 13: 5 RBC 4.19 M/mm3 (4.2-5.4) L 04/13/25 13:04/13/25 Hgb 13.6 g/dL (12.0-15.0) 04/13/25 13:04/13/25 Hct 40.2 % (37-47) 04/13/25 13:04/13/25 Plt Count 280 K/mm3 (150-450) 04/13/25 13:31 04/13/25 CHEMISTRY Potassium 4.2 mmol/L (3.3-5.1) 04/13/25 13:04/13/25 Sodium 141 mmol/L (133-145) 04/13/25 13:31 04/13/25 BUN 17 mg/dL (4-19) 04/13/25 13:04/13/25 Creatinine 1.06 mg/dL (0.70-1.20) 04/13/25 13:04/13/25 Glucose 91 mg/dL (70-99) 04/13/25 13:04/13/25 COAG Pre-Assessment Diagnosis/Proposed Procedure Planned Operative Procedure(s): COLONOSCOPY/EGD Anesthesia History 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 When Was Last Pacemaker Check QUESTION #4 FULL TEXT: You/Your Family Experience fever (hyperthermia) with Anesthesia Last Oral Intake Last Oral intake: Last Oral Intake NPO since 10:30 04/30/25 13:03 Meds taken in AM with sips of No 04/30/25 13:03 water? 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 Female Yes 04/29/25 15:01 HX of Motion Sickness Yes 04/29/25 15:01 HX of N/V After Surgery Yes 04/29/25 15:01 Non-Smoker No 04/29/25 15:01 Duration of Surgery greater No 04/29/25 15:01 than 60 minutes Number of Risk Factors 3 04/29/25 15:01 PONV Score Moderate Risk 04/29/25 15:01 Height & Weight Height & Weight: Anesthesia: Height & Weight Height 5 ft 3 in 04/30/25 13:03 Weight: 76 kg 04/30/25 13:03 Body Mass Index (BMI) 29.7 04/30/25 13:03 Respiratory Assessment Respiratory Assessment - [employer]: Respiratory Tract Infection Hx - sales[employer] pet [employer] Hx Respiratory Tract Infection No 04/29/25 15:01 STOP Sleep Apnea STOP Sleep Apnea - [employer]: STOP Sleep Apnea - [employer] Hx Hypertension No 04/29/25 15:01 Hx Sleep Apnea No 04/29/25 15:01 CPAP BIPAP Do you snore loudly (louder No 04/29/25 15:01 than talking or can be heard Do you often feel tired/ No 04/29/25 15:01 fatigued/ sleepy during daytime? Has anyone observed you stop No 04/29/25 15:01 breathing during sleep? STOP Results Negative 04/29/25 15:01 QUESTION #5 FULL TEXT : Do you snore loudly (louder than talking or can be heard through closed doors)? 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 Specify any problems Hx of Preganancy in last 3 No 04/29/25 15:01 Months Nurse Filling Out Transfusion VCHRISTIN 04/29/25 15:01 & Questions: Date: 04/29/25 04/29/25 15:01 Time: 15:02 04/29/25 15:01 Patient unable to answer at this time (ie. 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 Hx Now No 04/29/25 15:01 Gestational Age (in weeks): EDC: Hx Hx Para Hx Section SAB No 04/29/25 15:01 Active Medications Active Medications: Current Medications Generic Name Dose Route Start Last Admin Trade Name Freq PRN Reason Stop Dose Admin Lactated Ringer's 1,000 mls @ 15 mls/hr 04/30/25 13:00 04/30/25 13:21 IV 15 mls/hr .Q48H REGINO Administration PFSH Medical History Wears dentures Wears glasses Anxiety Alcohol use Rash Arthritis History of renal disease Excessive bleeding Easy bruising Back pain Injury of head and neck History of ulceration Gastric reflux Vapes nicotine containing substance Former smoker History of pain when walking Stomach ulcer Renal agenesis Home Medications ?Medication ?Instructions ?Recorded ?Last Taken ?Type famotidine 20 mg tablet (Acid 20 mg PO DAILY 04/13/25 04/13/25 History Controller) fexofenadine 180 mg tablet 180 mg PO DAILY 04/13/25 History (Elli Hives) ibuprofen 200 mg tablet (Advil) 400 mg PO Q6H PRN feve r or pain 04/13/25 04/13/25 History ondansetron 4 mg disintegrating 4 mg PO Q8H PRN PRN Na usea #10 tabs 04/13/25 Unknown Rx tablet aloe vera 5,000 mg capsule 5,000 mg PO DAILY 04/22/25 04/22/25 History black walnut [place] 450 mg capsule 450 mg PO DAILY 04/2204/22/25 History carica papaya 1 tab PO DAILY 04/22/2511/16 History albuterol sulfate 90 mcg/actuation 2 puff inhalation 4 X/DAY PRN PRN 04/29/25 Unknown History aerosol inhaler shortness of breath or wheez ing pantoprazole 40 mg tablet,delayed 40 mg PO DAILY 04/29 Unknown History release Allergy/AdvReac Type Severity Reaction Status Date / Time aspirin Allergy Rash Verified 04/30/25 13:01 codeine Allergy Rash Verified 04/30/25 13:01 latex AdvReac Severe Rash Verified 04/30/25 13:01 Surgical History Hx of dilation and curettage Hx of section Hx of surgical procedure Hx of left knee surgery Hx of cervical spine surgery Hx of cholecystectomy Social History Smoking Status: Current every day smoker tobacco type: e-cigarettes Review of Systems (Anesthesia) ROS Narrative System reviewed and no additional complaints, except as documented.
--- NOTE | 2025-04-30 13:45 | EGD_PTH ---
PATIENT: FELIX POWER LOC: [facility] U#:[id number] AGE/SX: 54/F ROOM: RE04/30/[address]: Dr. Eder Paniagua DO : 1970 BED: DIS: 04/30/2025 SPEC #: [id number] RECD: 04/30/25 15:00 STATUS: CLARENCE CRISTINO #: [id number] DAWN: 04/30/25 13:[address]: Eder Paniagua DEPT: SURGICAL PATHOLOGY RECD BY: Jimmy Pradhan ENTERED: 04/30/25 15:44 SP TYPE: EGD BIOPSY OT DR: Eileen Primary Care Phys Tissues: A - Duodenum, NOS B - Ileum, NOS C - COLON BIOPSY D - Rectum, NOS Procedures: Surgery Specimen Level IV HEADER OPERATION: Colonoscopy, EGD with biopsy PRE-OP DIAGNOSIS: Loose stools, constipation, epigastric pain TISSUE SUBMITTED: A- Duodenum biopsy, B- Terminal ileum biopsy, C- Random colon biopsy, D- Rectal polyp MICROSCOPIC DIAGNOSIS A. Duodenum, colon, biopsy: Duodenitis. Negative for histologic signs of celiac disease.B. Terminal ileum, biopsy: Unremarkable small bowel mucosa.C. Colon, random biopsy: Unremarkable colonic mucosa. Negative for microscopic colitis. D. Rectum, polyp, biopsy: Hyperplastic polyp. MICROSCOPIC DESCRIPTION Slides are reviewed. GROSS DESCRIPTION A. Received in fixative is one container labeled with the patient's name and designated Duodenum biopsy. The specimen consists of two irregular fragments of light pope soft tissue, each measuring 0.6 cm. The specimen is totally submitted in one cassette. B. Received in fixative is one container labeled with the patient's name and designated Terminal ileum biopsy. The specimen consists of two irregular fragments of light pope soft tissue that in aggregate measure 0.4 and 0.6 cm. The specimen is totally submitted in one cassette. C. Received in fixative is one container labeled with the patient's name and designated Random colon biopsy. The specimen consists of multiple irregular fragments of light pope soft tissue that in aggregate measure 1.4 x 0.5 x 0.1 cm. The specimen is totally submitted in one cassette. D. Received in fixative is one container labeled with the patient's name and designated Rectal polyp. The specimen consists of one irregular fragment of light pope soft tissue that measures 0.3 cm. The specimen is totally submitted in one cassette. MATTY/ 04/30/2025 CPT:43306p2
--- NOTE | 2025-04-30 13:45 | EGD_PTH ---
PATIENT: FELIX POWER LOC: [facility] U#:[id number] AGE/SX: 54/F ROOM: RE04/30/[address]: Dr. Eder Paniagua DO : 1970 BED: DIS: 04/30/2025 SPEC #: [id number] RECD: 04/30/25 15:00 STATUS: CLARENCE CRISTINO #: [id number] DAWN: 04/30/25 13:[address]: Eder Paniagua DEPT: SURGICAL PATHOLOGY RECD BY: Jimmy Pradhan ENTERED: 04/30/25 15:44 SP TYPE: EGD BIOPSY OT DR: Eileen Primary Care Phys Tissues: A - Duodenum, NOS B - Ileum, NOS C - COLON BIOPSY D - Rectum, NOS Procedures: Surgery Specimen Level IV HEADER OPERATION: Colonoscopy, EGD with biopsy PRE-OP DIAGNOSIS: Loose stools, constipation, epigastric pain TISSUE SUBMITTED: A- Duodenum biopsy, B- Terminal ileum biopsy, C- Random colon biopsy, D- Rectal polyp MICROSCOPIC DIAGNOSIS A. Duodenum, colon, biopsy: Duodenitis. Negative for histologic signs of celiac disease.B. Terminal ileum, biopsy: Unremarkable small bowel mucosa.C. Colon, random biopsy: Unremarkable colonic mucosa. Negative for microscopic colitis. D. Rectum, polyp, biopsy: Hyperplastic polyp. MICROSCOPIC DESCRIPTION Slides are reviewed. GROSS DESCRIPTION A. Received in fixative is one container labeled with the patient's name and designated Duodenum biopsy. The specimen consists of two irregular fragments of light pope soft tissue, each measuring 0.6 cm. The specimen is totally submitted in one cassette. B. Received in fixative is one container labeled with the patient's name and designated Terminal ileum biopsy. The specimen consists of two irregular fragments of light pope soft tissue that in aggregate measure 0.4 and 0.6 cm. The specimen is totally submitted in one cassette. C. Received in fixative is one container labeled with the patient's name and designated Random colon biopsy. The specimen consists of multiple irregular fragments of light pope soft tissue that in aggregate measure 1.4 x 0.5 x 0.1 cm. The specimen is totally submitted in one cassette. D. Received in fixative is one container labeled with the patient's name and designated Rectal polyp. The specimen consists of one irregular fragment of light pope soft tissue that measures 0.3 cm. The specimen is totally submitted in one cassette. MATTY/ 04/30/2025 CPT:25281u8
--- NOTE | 2025-04-30 14:32 | OP.CCLET_ITS ---
04/30/2025 No Primary Care Physician Re : Upper GI endoscopy procedure for Heaven Vieira Dear Care Physician This procedure was performed on Wednesday, April 30, 2025. My impressions and recommendations are as follows: Impressions : - Normal esophagus. - No gross lesions in the entire stomach. - Erythematous duodenopathy. Biopsied. Recommendations : - Discharge patient to home. - Resume previous diet. - Continue present medications. - Await pathology results. My findings are described in the full procedure note, which is enclosed. If I can be of further assistance, please feel free to contact me at . Sincerely, Eder Paniagua, 04/30/2025 2:31:49 PM This report has been signed electronically.
--- NOTE | 2025-04-30 14:32 | OP.EGD_ITS ---
Patient Name: Heaven Vieira Procedure Date: 04/30/2025 1:52 PM Date of : 1970 Age: 54 Procedure: Upper GI endoscopy Indications: Epigastric abdominal pain, Functional Dyspepsia Providers: Eder Paniagua DO Medicines: Monitored Anesthesia Care Patient Profile: This is a 54 year old female. Refer to note in patient chart for documentation of history and physical. Patient has symptoms of chronic abdominal cramping, chronic epigastric abdominal pain, chronic dyspepsia and chronic nausea. Complications: No immediate complications. Procedure: Pre-Anesthesia Assessment: - Prior to the procedure, a History and Physical was performed, and patient medications and allergies were reviewed. The patient is competent. The risks and benefits of the procedure and the sedation options and risks were discussed with the patient. All questions were answered and informed consent was obtained. Patient identification and proposed procedure were verified by the physician in the pre-procedure area. Mental Status Examination: alert and oriented. Airway Examination: normal oropharyngeal airway and neck mobility. Respiratory Examination: clear to auscultation. CV Examination: normal. Prophylactic Antibiotics: The patient does not require prophylactic antibiotics. Prior Anticoagulants: The patient has taken no anticoagulant or antiplatelet agents except for NSAID medication. ASA Grade Assessment: II - A patient with mild systemic disease. After reviewing the risks and benefits, the patient was deemed in satisfactory condition to undergo the procedure. The anesthesia plan was to use monitored anesthesia care (MAC). Immediately prior to administration of medications, the patient was re-assessed for adequacy to receive sedatives. The heart rate, respiratory rate, oxygen saturations, blood pressure, adequacy of pulmonary ventilation, and response to care were monitored throughout the procedure. The physical status of the patient was re-assessed after the procedure. After obtaining informed consent, the endoscope was passed under direct vision. Throughout the procedure, the patient's blood pressure, pulse, and oxygen saturations were monitored continuously. The Colonoscope was introduced through the mouth, and advanced to the fourth part of the duodenum. Small bowel enteroscopy was deemed necessary. The upper GI endoscopy was accomplished without difficulty. The patient tolerated the procedure well. Scope In: 2:05:16 PM Scope Out: 2:08:44 PM Total Procedure Duration Time 0 hours 3 minutes 28 seconds Findings: The examined esophagus was normal. No gross lesions were noted in the entire examined stomach. Diffuse mildly erythematous mucosa without active bleeding and with no stigmata of bleeding was found in the entire duodenum. Biopsies were taken with a cold forceps for histology. Verification of patient identification for the specimen was done. Estimated blood loss was minimal. Impression: - Normal esophagus. - No gross lesions in the entire stomach. - Erythematous duodenopathy. Biopsied. Recommendation: - Discharge patient to home. - Resume previous diet. - Continue present medications. - Await pathology results. Procedure Code(s): --- Professional --- 27418, Small intestinal endoscopy, enteroscopy beyond second portion of duodenum, not including ileum; with biopsy, single or multiple CPT copyright 2021 [employer]. All rights reserved. The codes documented in this report are preliminary and upon medical billing coder review may be revised to meet current compliance requirements. Eder Paniagua DO 04/30/2025 2:31:49 PM This report has been signed electronically. Number of Addenda: 0 Note Initiated On: 04/30/2025 1:52 PM
--- NOTE | 2025-04-30 14:32 | OP.EGD_ITS ---
Patient Name: Heaven Vieira Procedure Date: 04/30/2025 1:52 PM Date of : 1970 Age: 54 Procedure: Upper GI endoscopy Indications: Epigastric abdominal pain, Functional Dyspepsia Providers: Eder Paniagua DO Medicines: Monitored Anesthesia Care Patient Profile: This is a 54 year old female. Refer to note in patient chart for documentation of history and physical. Patient has symptoms of chronic abdominal cramping, chronic epigastric abdominal pain, chronic dyspepsia and chronic nausea. Complications: No immediate complications. Procedure: Pre-Anesthesia Assessment: - Prior to the procedure, a History and Physical was performed, and patient medications and allergies were reviewed. The patient is competent. The risks and benefits of the procedure and the sedation options and risks were discussed with the patient. All questions were answered and informed consent was obtained. Patient identification and proposed procedure were verified by the physician in the pre-procedure area. Mental Status Examination: alert and oriented. Airway Examination: normal oropharyngeal airway and neck mobility. Respiratory Examination: clear to auscultation. CV Examination: normal. Prophylactic Antibiotics: The patient does not require prophylactic antibiotics. Prior Anticoagulants: The patient has taken no anticoagulant or antiplatelet agents except for NSAID medication. ASA Grade Assessment: II - A patient with mild systemic disease. After reviewing the risks and benefits, the patient was deemed in satisfactory condition to undergo the procedure. The anesthesia plan was to use monitored anesthesia care (MAC). Immediately prior to administration of medications, the patient was re-assessed for adequacy to receive sedatives. The heart rate, respiratory rate, oxygen saturations, blood pressure, adequacy of pulmonary ventilation, and response to care were monitored throughout the procedure. The physical status of the patient was re-assessed after the procedure. After obtaining informed consent, the endoscope was passed under direct vision. Throughout the procedure, the patient's blood pressure, pulse, and oxygen saturations were monitored continuously. The Colonoscope was introduced through the mouth, and advanced to the fourth part of the duodenum. Small bowel enteroscopy was deemed necessary. The upper GI endoscopy was accomplished without difficulty. The patient tolerated the procedure well. Scope In: 2:05:16 PM Scope Out: 2:08:44 PM Total Procedure Duration Time 0 hours 3 minutes 28 seconds Findings: The examined esophagus was normal. No gross lesions were noted in the entire examined stomach. Diffuse mildly erythematous mucosa without active bleeding and with no stigmata of bleeding was found in the entire duodenum. Biopsies were taken with a cold forceps for histology. Verification of patient identification for the specimen was done. Estimated blood loss was minimal. Impression: - Normal esophagus. - No gross lesions in the entire stomach. - Erythematous duodenopathy. Biopsied. Recommendation: - Discharge patient to home. - Resume previous diet. - Continue present medications. - Await pathology results. Procedure Code(s): --- Professional --- 43769, Small intestinal endoscopy, enteroscopy beyond second portion of duodenum, not including ileum; with biopsy, single or multiple CPT copyright 2021 [employer]. All rights reserved. The codes documented in this report are preliminary and upon sword swallower review may be revised to meet current compliance requirements. Eder Paniagua DO 04/30/2025 2:31:49 PM This report has been signed electronically. Number of Addenda: 0 Note Initiated On: 04/30/2025 1:52 PM
--- NOTE | 2025-04-30 14:33 | PCM.POST.ANE ---
Anesthesia: Postop Eval I Current Vital Signs Temperature: 97.8 F Pulse Rate: 92 Blood Pressure: 117/85 Respiratory Rate: 16 Pulse Ox: 99 Oxygen Delivery Method: Room Air Assessment Airway patent: Yes Spontaneous unlabored respirations: Yes Mental status: Awake nausea: No Vomiting: No Anesthesia Complication: No Fluid Hydration Crystalloid volume administer (ml): 600 Total IV fluid infused: 600 Progress Note Anesthesia document: Postop Eval 1 completed: Yes
--- NOTE | 2025-04-30 14:35 | OP.CCLET_ITS ---
04/30/2025 No Primary Care Physician Re : Colonoscopy procedure for Heaven Vieira Dear Care Physician This procedure was performed on Wednesday, April 30, 2025. My impressions and recommendations are as follows: Impressions : - One 5 mm polyp in the rectum, removed with a jumbo cold forceps. Resected and retrieved. - Congested mucosa in the sigmoid colon, in the descending colon and in the ascending colon. Biopsied. - The examined portion of the ileum was normal. Biopsied. Recommendations : - Discharge patient to home. - Resume previous diet. - Continue present medications. - Await pathology results. - Repeat colonoscopy in 5 years for surveillance based on pathology results. My findings are described in the full procedure note, which is enclosed. If I can be of further assistance, please feel free to contact me at . Sincerely, Eder Paniagua, 04/30/2025 2:34:11 PM This report has been signed electronically.
--- NOTE | 2025-04-30 14:35 | OP.COLON_ITS ---
Patient Name: Heaven Vieira Procedure Date: 04/30/2025 2:08 PM Date of : 1970 Age: 54 Procedure: Colonoscopy Indications: Screening for colorectal malignant neoplasm Providers: Eder Paniagua DO Medicines: Monitored Anesthesia Care Patient Profile: This is a 54 year old female. Refer to note in patient chart for documentation of history and physical. Patient has symptoms of chronic abdominal cramping, chronic epigastric abdominal pain, chronic dyspepsia and chronic nausea. Last Colonoscopy: none. The patient's first colonoscopy is today. Complications: No immediate complications. Procedure: Pre-Anesthesia Assessment: - Prior to the procedure, a History and Physical was performed, and patient medications and allergies were reviewed. The patient is competent. The risks and benefits of the procedure and the sedation options and risks were discussed with the patient. All questions were answered and informed consent was obtained. Patient identification and proposed procedure were verified by the physician in the pre-procedure area. Mental Status Examination: alert and oriented. Airway Examination: normal oropharyngeal airway and neck mobility. Respiratory Examination: clear to auscultation. CV Examination: normal. Prophylactic Antibiotics: The patient does not require prophylactic antibiotics. Prior Anticoagulants: The patient has taken no anticoagulant or antiplatelet agents except for NSAID medication. ASA Grade Assessment: II - A patient with mild systemic disease. After reviewing the risks and benefits, the patient was deemed in satisfactory condition to undergo the procedure. The anesthesia plan was to use monitored anesthesia care (MAC). Immediately prior to administration of medications, the patient was re-assessed for adequacy to receive sedatives. The heart rate, respiratory rate, oxygen saturations, blood pressure, adequacy of pulmonary ventilation, and response to care were monitored throughout the procedure. The physical status of the patient was re-assessed after the procedure. After I obtained informed consent, the scope was passed under direct vision. Throughout the procedure, the patient's blood pressure, pulse, and oxygen saturations were monitored continuously. The Colonoscope was introduced through the anus and advanced to the terminal ileum. The colonoscopy was performed without difficulty. The patient tolerated the procedure well. The quality of the bowel preparation was adequate. The terminal ileum, ileocecal valve, appendiceal orifice, and rectum were photographed. Scope In: 2:10:51 PM Scope Withdrawal Time 0 hours 9 minutes 41 seconds Scope Out: 2:23:56 PM Total Procedure Duration Time 0 hours 13 minutes 5 seconds Findings: The perianal and digital rectal examinations were normal. A 5 mm polyp was found in the rectum. The polyp was sessile. The polyp was removed with a jumbo cold forceps. Resection and retrieval were complete. Verification of patient identification for the specimen was done. Estimated blood loss was minimal. An area of mildly congested mucosa was found in the sigmoid colon, in the descending colon and in the ascending colon. Biopsies were taken with a cold forceps for histology. Verification of patient identification for the specimen was done. Estimated blood loss was minimal. The terminal ileum appeared normal. Biopsies were taken with a cold forceps for histology. Verification of patient identification for the specimen was done. Estimated blood loss was minimal. Impression: - One 5 mm polyp in the rectum, removed with a jumbo cold forceps. Resected and retrieved. - Congested mucosa in the sigmoid colon, in the descending colon and in the ascending colon. Biopsied. - The examined portion of the ileum was normal. Biopsied. Recommendation: - Discharge patient to home. - Resume previous diet. - Continue present medications. - Await pathology results. - Repeat colonoscopy in 5 years for surveillance based on pathology results. Procedure Code(s): --- Professional --- 79650, Colonoscopy, flexible; with biopsy, single or multiple CPT copyright 2021 [employer]. All rights reserved. The codes documented in this report are preliminary and upon car changer review may be revised to meet current compliance requirements. Eder Paniagua DO 04/30/2025 2:34:11 PM This report has been signed electronically. Number of Addenda: 0 Note Initiated On: 04/30/2025 2:08 PM
--- NOTE | 2025-04-30 14:35 | OP.COLON_ITS ---
Patient Name: Heaven Vieira Procedure Date: 04/30/2025 2:08 PM Date of : 1970 Age: 54 Procedure: Colonoscopy Indications: Screening for colorectal malignant neoplasm Providers: Eder Paniagua DO Medicines: Monitored Anesthesia Care Patient Profile: This is a 54 year old female. Refer to note in patient chart for documentation of history and physical. Patient has symptoms of chronic abdominal cramping, chronic epigastric abdominal pain, chronic dyspepsia and chronic nausea. Last Colonoscopy: none. The patient's first colonoscopy is today. Complications: No immediate complications. Procedure: Pre-Anesthesia Assessment: - Prior to the procedure, a History and Physical was performed, and patient medications and allergies were reviewed. The patient is competent. The risks and benefits of the procedure and the sedation options and risks were discussed with the patient. All questions were answered and informed consent was obtained. Patient identification and proposed procedure were verified by the physician in the pre-procedure area. Mental Status Examination: alert and oriented. Airway Examination: normal oropharyngeal airway and neck mobility. Respiratory Examination: clear to auscultation. CV Examination: normal. Prophylactic Antibiotics: The patient does not require prophylactic antibiotics. Prior Anticoagulants: The patient has taken no anticoagulant or antiplatelet agents except for NSAID medication. ASA Grade Assessment: II - A patient with mild systemic disease. After reviewing the risks and benefits, the patient was deemed in satisfactory condition to undergo the procedure. The anesthesia plan was to use monitored anesthesia care (MAC). Immediately prior to administration of medications, the patient was re-assessed for adequacy to receive sedatives. The heart rate, respiratory rate, oxygen saturations, blood pressure, adequacy of pulmonary ventilation, and response to care were monitored throughout the procedure. The physical status of the patient was re-assessed after the procedure. After I obtained informed consent, the scope was passed under direct vision. Throughout the procedure, the patient's blood pressure, pulse, and oxygen saturations were monitored continuously. The Colonoscope was introduced through the anus and advanced to the terminal ileum. The colonoscopy was performed without difficulty. The patient tolerated the procedure well. The quality of the bowel preparation was adequate. The terminal ileum, ileocecal valve, appendiceal orifice, and rectum were photographed. Scope In: 2:10:51 PM Scope Withdrawal Time 0 hours 9 minutes 41 seconds Scope Out: 2:23:56 PM Total Procedure Duration Time 0 hours 13 minutes 5 seconds Findings: The perianal and digital rectal examinations were normal. A 5 mm polyp was found in the rectum. The polyp was sessile. The polyp was removed with a jumbo cold forceps. Resection and retrieval were complete. Verification of patient identification for the specimen was done. Estimated blood loss was minimal. An area of mildly congested mucosa was found in the sigmoid colon, in the descending colon and in the ascending colon. Biopsies were taken with a cold forceps for histology. Verification of patient identification for the specimen was done. Estimated blood loss was minimal. The terminal ileum appeared normal. Biopsies were taken with a cold forceps for histology. Verification of patient identification for the specimen was done. Estimated blood loss was minimal. Impression: - One 5 mm polyp in the rectum, removed with a jumbo cold forceps. Resected and retrieved. - Congested mucosa in the sigmoid colon, in the descending colon and in the ascending colon. Biopsied. - The examined portion of the ileum was normal. Biopsied. Recommendation: - Discharge patient to home. - Resume previous diet. - Continue present medications. - Await pathology results. - Repeat colonoscopy in 5 years for surveillance based on pathology results. Procedure Code(s): --- Professional --- 35087, Colonoscopy, flexible; with biopsy, single or multiple CPT copyright 2021 [employer]. All rights reserved. The codes documented in this report are preliminary and upon gas main fitter review may be revised to meet current compliance requirements. Eder Paniagua DO 04/30/2025 2:34:11 PM This report has been signed electronically. Number of Addenda: 0 Note Initiated On: 04/30/2025 2:08 PM
--- NOTE | 2025-04-30 15:23 | PCM.POSTANE2 ---
Anesthesia Postop Eval I Sum Postop Eval Completion status Anesthesia document: Postop Eval 1 completed: Yes Anesthesia Postop Eval I Summary Anesthesia Postop Eval I Summary: Anesthesia Postop Eval I: Assessment Summary Airway patent Yes 04/30/25 14:34 [email or web address] Spontaneous unlabored Yes 04/30/25 14:34 [email or web address] respirations Mental status Awake 04/30/25 14:34 [email or web address] nausea No 04/30/25 14:34 [email or web address] Vomiting No 04/30/25 14:34 [email or web address] Anesthesia Postop Eval I: Fluid Summary Crystalloid volume administer 600 04/30/25 14:34 [email or web address] (ml) Colloids volume administered ( ml) Blood Product volume administered (ml) Total IV fluid infused 600 04/30/25 14:34 [email or web address] Anesthesia Postop Eval I: Summary Notes Anesthesia Complication No 04/30/25 14:34 [email or web address] Anesthesia Complication Comment: Post-operative progress note Anesthesia: Postop Eval II Evaluation Mental status: Awake and Calm Pain Level: 1 nausea: No Vomiting: No Complications Anesthesia Complication: No
== END 2025-04-30 15:31 | disposition home or self-care (01) ==
LOC: EN 12:36 → AC 12:36
PROVIDERS: Visit Provider Internal Medicine Gastroenterology
PROC: 0DJD8ZZ Inspection of Lower Intestinal Tract, Via Natural or Artificial Opening Endoscopic (ICD-10-PCS; CPT 45378; principal; 2025-04-30 13:40)
DX: Z12.11 Encounter for screening for malignant neoplasm of colon (principal); R10.13 Epigastric pain; K59.00 Constipation, unspecified; F41.9 Anxiety disorder, unspecified; Z79.899 Other long term (current) drug therapy; Z90.49 Acquired absence of other specified parts of digestive tract; K21.9 Gastro-esophageal reflux disease without esophagitis; F17.290 Nicotine dependence, other tobacco product, uncomplicated; K29.80 Duodenitis without bleeding; K62.1 Rectal polyp
CPT/HCPCS: 45380; 88305; J2405

== ENCOUNTER → 2025-05-14 | Outpatient (CLI) | payer OTHER, SELFPAY ==
--- OUTSIDE RECORDS SUMMARY | 2025-05-14 19:00 | XMS RPT_ITS | CCD ---
Author Organization [facility] Care Team Providers Care Senior Principal Process Engineer Name Role Phone Tom Wiggins F Primary Care Provider PROVIDER, UNKNOWN Referring Unavailable Lizett Mars Attending Unavailable Petrilla, Tom Primary Care Unavailable Petrilla, Tom Attending Unavailable PROVIDER, UNKNOWN Referring Unavailable Petrilla, Tom Primary Care Unavailable PROVIDER, UNKNOWN Referring Unavailable Petrilla, Otm Primary Care Unavailable Petrilla, Tom Attending Unavailable PROVIDER, UNKNOWN Referring Unavailable KAMILLA FLOWERS Attending Unavailable Naomia, Tom Primary Care Unavailable PROVIDER, UNKNOWN Referring Unavailable KAMILLA FLOWERS Attending Unavailable Petrilla, Tom Primary Care Unavailable JARACH, MAZEN Referring Unavailable JARACH, MAZEN Primary Care Unavailable JARACH, MAZEN Referring Unavailable JARACH, MAZEN Primary Care Unavailable JARACH, MAZEN Referring Unavailable PETRILLA, TOM F Primary Care Unavailable Petrilla DO Tom F Primary Care Provider Dr. Hanna Regalado DO Emergency Provider Care Physician, No Primary Primary Care Provider Unavailable Dr. Hanna Regalado DO Attending Provider Dr. Raphael Cheng MD Emergency Provider Provider, Ed Physician Emergency Provider Dr. Raphael Galan MD Attending Provider Provider, Ed Physician Attending Provider Jennifer lakhani Care Physician, No Primary Referring Provider Un available Jihan Billy Attending Provider Dr. Eder Paniagua DO Attending Provider Dr. Eder Paniagua DO Other Provider Care Physician, No Primary Primary Care Unava ilable Care Physician, No Primary Referring Unava ilable Eder Paniagua Attending Unavailable Care Physician, No Primary Primary Care Unava ilable Schwiger, Hanna Attending Unavailable Care Physician, No Primary Primary Care Unava ilable Cheng, Raphael Attending Unavailable Provider, Ed Physician Attending Unavailab le Care Physician, No Primary Primary Care Unava ilable Care Physician, No Primary Primary Care Unava ilable Care Physician, No Primary Referring Unava ilable Jihan Cardona Attending Unavailable Care Physician, No Primary Primary Care Unava ilable Care Physician, No Primary Referring Unava ilable Jihan Cardona Attending Unavailable Friend, Eder Attending Unavailable Friend, Eder Consulting Unavailable Care Physician, No Primary Primary Care Unava ilable Care Physician, No Primary Referring Unava ilable Allergies Allergy Classification Reported Allergen(s) Allergy Type Date of Onset Reaction(s) Facility Aluminum aspirin (4 sources) Aluminum aspirin Drug Allergy 5 [facility] Latex (4 sources) Latex Substance Allergy 5 [facility] Opioid Agonists (4 sources) Codeine Drug Allergy 5 [facility] (6 sources) Aluminum aspirin; Translations: [ASPIRIN] Drug Allergy 5 [place] (12 sources) Codeine; Translations: [CODEINE] Drug Allergy 5 [place] (8 sources) Latex; Translations: [LATEX] Propensity to adverse reactions to drug 5 [place] (6 sources) Aspirin Drug Allergy 5 [facility] (1 source) Aspirin Drug Allergy [address] [place] [address] Repository (1 source) Codeine Drug Allergy 5 [facility] Repository (1 source) Latex Drug allergy (disorder) 5 [facility] Repository Medications Current Medications Medication Drug Class(es) Dates Sig (Normalized) Sig (Original) acetaminophen 325 mg / HYDROcodone bitartrate 5 mg oral tablet (10 sources) Opioid Agonist Start: 02-22-2021 End: 02-25-2021 [...] 4 HOURS NEEDED as needed for Pain 12 0 May 27, 2015 12:00am March 07, 2025 [...] days. 10 tablet 0 03/02/2021 03/07/2021 Active [id number] 200 actuat albuterol 0.09 mg/actuat metered dose inhaler (3 sources) beta2-Adrene rgic Agonist Start: 04-29-2025 Albuterol Sulfate 90 mcg/actuation HFA aerosol inhaler Active 2 NMA INHALATION 4 TIMES DAILY NEEDED as needed for shortness of breath or wheezing April 29, 2025 12:00am Start: 01-07-2022 take 2 puff(s) by in halation four times daily as needed for wheezing albuterol sulfate HFA (VENTOLIN HFA) 108 (90 Base) MCG/ACT inhaler Inhale 2 puffs into the lungs 4 times daily as needed for Wheezing 18 g 0 01/07/2022 Active Aloe Vera (3 sources) Start: 04-22-2025 take 1 capsule by [facility] once daily Aloe Vera 5,000 mg capsule Active 5000 mg PO DAILY April 22, 2025 12:00am Start: 04-22-2025 Aloe Vera 5,00 0 mg capsule Active mg PO April 22, 2025 12:00am ALPRAZolam 0.25 mg disintegrating oral tablet (1 source) Benzodiazepine Start: 03-02-2021 ALPRAZolam (NIRAVAM) dissolvable tablet 0.25 mg [place] 450 mg capsule (3 sources) Start: 04-22-2025 take 1 capsule by mouth once daily [place] Flora [place] 450 mg capsule Active 450 mg PO DAILY April 22, 2025 12:00am Start: 04-22-2025 [place] ull 450 mg capsule Active mg PO April 22, 2025 12:00am calcium chloride 0.0014 meq/ml / potassium chloride 0.004 meq/ml / sodium chloride 0.103 meq/ml / sodium lactate 0.028 meq/ml injectable solution (1 source) Start: 03-02-2021 lactated ringe rs infusion Carica Papaya tablet (3 sources) Start: 04-22-2025 take 1 tablet by mouth once daily at mealtime Carica Papaya tablet Active 1 {tbl} PO DAILY April 22, 2025 12:00am administer with meals Start: 04-22-2025 take 1 tablet by jad th three times daily at mealtime Carica Papaya tablet Active 1 {tbl} PO THREE TIMES A DAY April 22, 2025 12:00am administer with meals celecoxib 200 mg oral capsule (2 sources) [...] End: 03-02-2021 diphenhydrAMINE (BENADRYL) injection 12.5 mg famotidine 20 mg oral tablet (6 sources) Histamine-2 Receptor Antagonist Start: 04-13-2025 take 1 tablet by mouth once daily Famotidine (Acid Controller) 20 mg tablet Active 20 mg PO DAILY April 13, 2025 12:00am Start: 03-02-2021 End: 03-02-2021 famotidine (PEPCID) tablet 2 0 mg fexofenadine hydrochloride 180 mg oral tablet (5 sources) Histamine-1 Receptor Antagonist Start: 04-13-2025 take 1 tablet by mouth once daily Fexofenadine (Elli Hives) 180 mg tablet Active 180 mg PO DAILY April 13, 2025 12:00am 1 ml hydrALAZINE hydrochloride 20 mg/ml injection (1 source) Arteriolar Vasodilator Start: 03-02-2021 hydrALAZINE (APRESOLINE) injection 5 mg 1 ml HYDROmorphone hydrochloride 1 mg/ml cartridge (4 sources) Opioid Agonist Start: 03-02-2021 HYDROmorphone (DILAUDID) injection 1 mg Start: 03-02-2021 HYDROmorphone (DILAUDID) injection 0.5 mg Start: 03-02-2021 HYDROmorphone (DILAUDID) injection 0.25 mg ibuprofen 200 mg oral tablet (10 sources) Nonsteroidal Anti-inflammatory Drug Start: 04-13-2025 take 2 tablets by mouth every six hours as needed for pain Ibuprofen (Advil) 200 mg tablet Active 400 mg PO EVERY 6 HOURS as needed for fever or pain April 13, 2025 12:00am Start: 08-10-2022 End: 08-10-2022 ibuprofen (ADVIL;MOTRIN) tab let 600 mg take 1 tablet by jad th every six hours as needed for pain ibuprofen (ADVIL;MOTRIN) 800 MG tablet Take 800 mg by mouth every 6 hours as needed for Pain 0 Suspended labetalol hydrochloride 5 mg/ml injectable solution (1 source) beta-Adrenergic Romaine Start: 03-02-2021 labetalol (NORMODYNE;TRANDATE) injection 5 mg [...] Start: 03-02-2021 meperidine (DEMEROL) injection 12.5 mg ondansetron 4 mg disintegrating oral tablet (11 sources) Serotonin-3 Receptor Antagonist Start: 04-13-2025 take 1 tablet by mouth every eight hours as needed for nausea Ondansetron 4 mg tablet,disintegrating Active 4 mg PO EVERY 8 HOURS NEEDED as needed for Nausea 10 0 April 13, 2025 12:00am Start: 03-02-2021 End: 03-02-2021 ondansetron (ZOFRAN) injecti on 4 mg Start: 02-22-2021 End: 02-22-2021 ondansetron [...] pantoprazole 40 mg delayed release oral tablet (14 sources) Proton Pump Inhibitor Start: 04-29-2025 take 1 tablet by mouth once daily Pantoprazole 40 mg tablet,delayed release (DR/EC) Active 40 mg PO DAILY April 29, 2025 12:00am Start: 04-22-2025 End: 04-29-2025 take 1 tablet by mouth twice daily Pantoprazole 40 mg tablet,delayed release (DR/EC) Discontinued 40 mg PO TWICE A DAY 60 3 April 22, 2025 10:04am April 29, 2025 2:53pm Start: 04-22-2025 End: 04-22-2025 take 1 tablet by mouth once daily Pantoprazole 40 mg tablet,delayed release (DR/EC) Discontinued 40 mg PO daily April 22, 2025 12:00am April 22, 2025 10:04am Start: 03-07-2025 End: 04-13-2025 take 1 tablet by mouth once daily Pantoprazole 40 mg tablet,delayed release (DR/EC) Discontinued 40 mg PO DAILY March 07, 2025 12:00am April 13, 2025 2:13pm phenazopyridine hydrochloride 100 mg oral tablet (2 [...] End: 01-07-2022 dexamethasone (DECADRON) tablet 6 mg indocyanine green (IC-GREEN) syringe 2.5 mg (1 [...] Date Documented Da te Episodic/Chronic Abdominal pain (17 sources) Right upper quadrant pain; Translations: [Right upper quadrant pain] Onset: 05-12-2025 Episodic Allergic reactions (12 sources) Allergy status to narcotic agent status; Translations: [Allergy status to analgesic agent status] Onset: 08-10-2022 Episodic Disorders of lipid metabolism (11 sources) Hypercholesterolem ia; Translations: [Pure hypercholesterolem ia, unspecified] Onset: 01-04-2021 01-04-2021 Chronic Esophageal disorders (6 sources) Gastro-esophageal reflux disease with esophagitis; Translations: [Gastroesophageal reflux disease with esophagitis without hemorrhage] Onset: 12-21-2021 01-04-2022 Chronic Gastritis and duodenitis (2 sources) Acute duodenitis; Translations: [Duodenitis without bleeding] 05-14-2025 Episodic Genitourinary symptoms and ill-defined conditions (2 sources) Frequency of micturition; Translations: [Frequency of micturition] Onset: 08-10-2022 Episodic Headache; including migraine (5 sources) Migraine; Translations: [Migraine, unspecified, not intractable, without status migrainosus] Onset: 10-23-2009 11-17-2021 Chronic Headache; including migraine (2 sources) Headache; including migraine; Translations: [Headache, unspecified] Onset: 01-27-2022 Nausea and vomiting (7 sources) Nausea and vomiting; Translations: [Nausea with vomiting, unspecified] 04-13-2025 Episodic Other aftercare (2 sources) Other mcc (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; Translations: [Other mcc (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] Onset: 08-10-2022 Episodic Other gastrointestinal disorders (8 sources) Loose stool; Translations: [Other fecal abnormalities] 04-22-2025 Episodic Other gastrointestinal disorders (7 sources) Constipation; Translations: [Constipation, unspecified] 04-22-2025 Episodic Other gastrointestinal disorders (1 source) Other fecal abnormalities; Translations: [Other fecal abnormalities] Onset: 05-12-2025 Episodic Other gastrointestinal disorders (1 source) Constipation, unspecified; Translations: [Constipation, unspecified] Onset: 05-12-2025 Episodic Other screening for suspected conditions (not mental disorders or infectious disease) (2 sources) Encounter for screening mammogram for malignant neoplasm of breast; Translations: [Encntr screen mammogram for malignant neoplasm of breast] Onset: 08-01-2022 Episodic Other skin disorders (1 source) Rash and other nonspecific skin eruption; Translations: [Rash and other nonspecific skin eruption] Onset: 03-13-2025 Episodic Residual codes; unclassified (1 source) Procedure and treatment not carried out due to patient leaving prior to being seen by health care provider; Translations: [Procedure and treatment not carried out due to patient leaving prior to being seen by health care provider] Onset: 04-21-2025 Episodic Spondylosis; intervertebral disc disorders; other back [...] Test Name Value Interpretation Reference Range Facility Colonoscopy Reporton 025 Colonoscopy Report [facility] Medical Records Department [address] [place] [address] Colonoscopy Report MR#: [id number] Acct: [id number] Name: HEAVEN POWER Rep #: [id number] : 1970 54 From: Eder Paniagua DO PCP: Care Physician,No Primary Status:[facility] Patient Name: Heaven Power Procedure Date: 04/30/2025 2:08 PM Date of : 1970 Age: 54 Procedure: Colonoscopy Indications: Screening for colorectal malignant neoplasm Providers: Eder Paniagua DO Medicines: Monitored Anesthesia Care Patient Profile: This is a 54 year old female. Refer to note in patient chart for documentation of history and physical. Patient has symptoms of chronic abdominal cramping, chronic epigastric abdominal pain, chronic dyspepsia and chronic nausea. Last Colonoscopy: none. The patient's first colonoscopy is today. Complications: No immediate complications. Procedure: Pre-Anesthesia Assessment: - Prior to the procedure, a History and Physical was performed, and patient medications and allergies were reviewed. The patient is competent. The risks and benefits of the procedure and the sedation options and risks were discussed with the patient. All questions were answered and informed consent was obtained. Patient identification and proposed procedure were verified by the physician in the pre-procedure area. Mental Status Examination: alert and oriented. Airway Examination: normal oropharyngeal airway and neck mobility. Respiratory Examination: clear to auscultation. CV Examination: normal. Prophylactic Antibiotics: The patient does not require prophylactic antibiotics. Prior Anticoagulants: The patient has taken no anticoagulant or antiplatelet agents except for NSAID medication. ASA Grade Assessment: II - A patient with mild systemic disease. After reviewing the risks and benefits, the patient was deemed in satisfactory condition to undergo the procedure. The anesthesia plan was to use monitored anesthesia care (MAC). Immediately prior to administration of medications, the patient was re-assessed for adequacy to receive sedatives. The heart rate, respiratory rate, oxygen saturations, blood pressure, adequacy of pulmonary ventilation, and response to care were monitored throughout the procedure. The physical status of the patient was re-assessed after the procedure. After I obtained informed consent, the scope was passed under direct vision. Throughout the procedure, the patient's blood pressure, pulse, and oxygen saturations were monitored continuously. The Colonoscope was introduced through the anus and advanced to the terminal ileum. The colonoscopy was performed without difficulty. The patient tolerated the procedure well. The quality of the bowel preparation was adequate. The terminal ileum, ileocecal valve, appendiceal orifice, and rectum were photographed. Scope In: 2:10:51 PM Scope Withdrawal Time 0 hours 9 minutes 41 seconds Scope Out: 2:23:56 PM Total Procedure Duration Time 0 hours 13 minutes 5 seconds Findings: The perianal and digital rectal examinations were normal. A 5 mm polyp was found in the rectum. The polyp was sessile. The polyp was removed with a jumbo cold forceps. Resection and retrieval were complete. Verification of patient identification for the specimen was done. Estimated blood loss was minimal. An area of mildly congested mucosa was found in the sigmoid colon, in the descending colon and in the ascending colon. Biopsies were taken with a cold forceps for histology. Verification of patient identification for the specimen was done. Estimated blood loss was minimal. The terminal ileum appeared normal. Biopsies were taken with a cold forceps for histology. Verification of patient identification for the specimen was done. Estimated blood loss was minimal. Impression: - One 5 mm polyp in the rectum, removed with a jumbo cold forceps. Resected and retrieved. - Congested mucosa in the sigmoid colon, in the descending colon and in the ascending colon. Biopsied. - The examined portion of the ileum was normal. Biopsied. Recommendation: - Discharge patient to home. - Resume previous diet. - Continue present medications. - Await pathology results. - Repeat colonoscopy in 5 years for surveillance based on pathology results. Procedure Code(s): --- Professional --- 23025, Colonoscopy, flexible; with biopsy, single or multiple CPT copyright 2021 [employer]. All rights reserved. The codes documented in this report are preliminary and upon support team assoc review may be revised to meet current compliance requirements. Eder Paniagua DO 04/30/2025 2:34:11 PM This report has been signed electronically. Number of Addenda: 0 Note Initiated On: 04/30/2025 2:08 PM 04/30/25 1434 Date (more content not included)... Normal [facility] EGD Reporton 04-30-2025 EGD Report [facility] Medical Records Department [address] [place] [address] EGD Report MR#: [id number] Acct: [id number] Name: HEAVEN POWER Rep #: [id number] : 1970 54 From: Eder Paniagua DO PCP: Care Physician,No Primary Status:[facility] Patient Name: Heaven Power Procedure Date: 04/30/2025 1:52 PM Date of : 1970 Age: 54 Procedure: Upper GI endoscopy Indications: Epigastric abdominal pain, Functional Dyspepsia Providers: Eder Paniagua DO Medicines: Monitored Anesthesia Care Patient Profile: This is a 54 year old female. Refer to note in patient chart for documentation of history and physical. Patient has symptoms of chronic abdominal cramping, chronic epigastric abdominal pain, chronic dyspepsia and chronic nausea. Complications: No immediate complications. Procedure: Pre-Anesthesia Assessment: - Prior to the procedure, a History and Physical was performed, and patient medications and allergies were reviewed. The patient is competent. The risks and benefits of the procedure and the sedation options and risks were discussed with the patient. All questions were answered and informed consent was obtained. Patient identification and proposed procedure were verified by the physician in the pre-procedure area. Mental Status Examination: alert and oriented. Airway Examination: normal oropharyngeal airway and neck mobility. Respiratory Examination: clear to auscultation. CV Examination: normal. Prophylactic Antibiotics: The patient does not require prophylactic antibiotics. Prior Anticoagulants: The patient has taken no anticoagulant or antiplatelet agents except for NSAID medication. ASA Grade Assessment: II - A patient with mild systemic disease. After reviewing the risks and benefits, the patient was deemed in satisfactory condition to undergo the procedure. The anesthesia plan was to use monitored anesthesia care (MAC). Immediately prior to administration of medications, the patient was re-assessed for adequacy to receive sedatives. The heart rate, respiratory rate, oxygen saturations, blood pressure, adequacy of pulmonary ventilation, and response to care were monitored throughout the procedure. The physical status of the patient was re-assessed after the procedure. After obtaining informed consent, the endoscope was passed under direct vision. Throughout the procedure, the patient's blood pressure, pulse, and oxygen saturations were monitored continuously. The Colonoscope was introduced through the mouth, and advanced to the fourth part of the duodenum. Small bowel enteroscopy was deemed necessary. The upper GI endoscopy was accomplished without difficulty. The patient tolerated the procedure well. Scope In: 2:05:16 PM Scope Out: 2:08:44 PM Total Procedure Duration Time 0 hours 3 minutes 28 seconds Findings: The examined esophagus was normal. No gross lesions were noted in the entire examined stomach. Diffuse mildly erythematous mucosa without active bleeding and with no stigmata of bleeding was found in the entire duodenum. Biopsies were taken with a cold forceps for histology. Verification of patient identification for the specimen was done. Estimated blood loss was minimal. Impression: - Normal esophagus. - No gross lesions in the entire stomach. - Erythematous duodenopathy. Biopsied. Recommendation: - Discharge patient to home. - Resume previous diet. - Continue present medications. - Await pathology results. Procedure Code(s): --- Professional --- 08934, Small intestinal endoscopy, enteroscopy beyond second portion of duodenum, not including ileum; with biopsy, single or multiple CPT copyright 2021 [employer]. All rights reserved. The codes documented in this report are preliminary and upon support team assoc review may be revised to meet current compliance requirements. Eder Paniagua DO 04/30/2025 2:31:49 PM This report has been signed electronically. Number of Addenda: 0 Note Initiated On: 04/30/2025 1:52 PM 04/30/25 1432 Date Eder Macias Signature: Date (if indicated) CC: No Primary Care Physician; Eder Paniagua DO Date Dictated: 04/30/25 1352 Date Transcribed: Silk Screen Layout Drafter: LICHA Signed [facility] MR/POSTOP.Cara 04-30-2025 MR/POSTOP.[facility] Medical Records Department [address] [place] [address] Anesthesia Postop Eval I 04/30/25 1433 MR#: [id number] Acct: [id number] Name: HEAVEN POWER Rep #: [id number] : 1970 54 From: Shane Heredia PCP: Care Physician,No Primary Status:REG SDC Y Race: C Location: [place] [address] Anesthesia: Postop Eval I Current Vital Signs Temperature: 97.8 F Pulse Rate: 92 Blood Pressure: 117/85 Respiratory Rate: 16 Pulse Ox: 99 Oxygen Delivery Method: Room Air Assessment Airway patent: Yes Spontaneous unlabored respirations: Yes Mental status: Awake nausea: No Vomiting: No Anesthesia Complication: No Fluid Hydration Crystalloid volume administer (ml): 600 Total IV fluid infused: 600 Progress Note Anesthesia document: Postop Eval 1 completed: Yes 04/30/25 143 Date Shane Jimenez Signature: Date CC: Signed Normal [facility] [id number] 04-30-2025 MR/POSTOPAN2 [facility] Medical Records Department [address] [place] [address] Anesthesia Postop Eval II 04/30/25 1523 MR#: [id number] Acct: [id number] Name: HEAVEN POWER Rep #: [id number] : 1970 54 From: Armand Dawson MD PCP: Care Physician,No Primary Status:REG SDC Y Race: C Location: [place] [address] Anesthesia Postop Eval I Sum Postop Eval Completion status Anesthesia document: Postop Eval 1 completed: Yes Anesthesia Postop Eval I Summary Anesthesia Postop Eval I Summary: Anesthesia Postop Eval I: Assessment Summary Airway patent Yes 04/30/25 14:34 [email or web address] Spontaneous unlabored Yes 04/30/25 14:34 [email or web address] respirations Mental status Awake 04/30/25 14:34 [email or web address] nausea No 04/30/25 14:34 [email or web address] Vomiting No 04/30/25 14:34 [email or web address] Anesthesia Postop Eval I: Fluid Summary Crystalloid volume administer 600 04/30/25 14:34 [email or web address] (ml) Colloids volume administered ( ml) Blood Product volume administered (ml) Total IV fluid infused 600 04/30/25 14:34 [email or web address] Anesthesia Postop Eval I: Summary Notes Anesthesia Complication No 04/30/25 14:34 [email or web address] Anesthesia Complication Comment: Post-operative progress note Anesthesia: Postop Eval II Evaluation Mental status: Awake and Calm Pain Level: 1 nausea: No Vomiting: No Complications Anesthesia Complication: No 04/30/25 1524 Date Armand Dawson MD Cosigner Signature: Date CC: Signed Normal [facility] Surgery Specimen Level Tania 04-30-2025 Surgery Specimen Level IV ---- Patient Age/Sex Location Account Attending Physician ---- HEAVEN POWER 54/F [place] [id number] Eder Paniagua DO ---- Specimen: [id number] Received: 04/30/25 Status: [facility] Num: [id number] Spec Type: EGD BIOPSY Subm Dr: Eder Paniagua, DO HEADER OPERATION: Colonoscopy, EGD with biopsy PRE-OP DIAGNOSIS: Loose stools, constipation, epigastric pain TISSUE SUBMITTED: A- Duodenum biopsy, B- Terminal ileum biopsy, C- Random colon biopsy, D- Rectal polyp ---- MICROSCOPIC DIAGNOSIS A. Duodenum, colon, biopsy: Duodenitis. Negative for histologic signs of celiac disease.B. Terminal ileum, biopsy: Unremarkable small bowel mucosa.C. Colon, random biopsy: Unremarkable colonic mucosa. Negative for microscopic colitis. D. Rectum, polyp, biopsy: Hyperplastic polyp. MICROSCOPIC DESCRIPTION Slides are reviewed. GROSS DESCRIPTION A. Received in fixative is one container labeled with the patient's name and designated "Duodenum biopsy." The specimen consists of two irregular fragments of light pope soft tissue, each measuring 0.6 cm. The specimen is totally submitted in one cassette. B. Received in fixative is one container labeled with the patient's name and designated Terminal ileum biopsy." The specimen consists of two irregular fragments of light pope soft tissue that in aggregate measure 0.4 and 0.6 cm. The specimen is totally submitted in one cassette. C. Received in fixative is one container labeled with the patient's name and designated Random colon biopsy. The specimen consists of multiple irregular fragments of light pope soft tissue that in aggregate measure 1.4 x 0.5 x 0.1 cm. The specimen is totally submitted in one cassette. D. Received in fixative is one container labeled with the patient's name and designated "Rectal polyp." The specimen consists of one irregular fragment of light pope soft tissue that measures 0.3 cm. The specimen is totally submitted in one cassette. Yee 04/30/2025 CPT:34821o2 ---- Patient Age/Sex Location Account Attending Physician ---- HEAVEN POWER 54/F EN [id number] Eder DO Siva ---- Signed (signature on file) Dr. Hoa Gerber MD 05/09/25 1018 ---- Normal [facility] Comment on above: Performed By: #### P SUIV #### [facility] [address] [place], [address] Gastroenterology Visit Repor ton 04-22-2025 Gastroenterology Visit Report [facility] Gastroenterology [address] [place] [address] OFFICE VISIT Date of Service: 04/22/25 MR#: [id number] Acct: [id number] Name: HEAVEN POWER Rep #: [id number] : 1970 Provider: QAMAR Perrin Age/Sex: 54/F [place] [facility] [place]: [place]igned Intake Vital Signs 04/13/25 12:43 04/15/25 13:40 Height 5 ft 3 in 5 ft 3 in Intake Visit Reasons: Hospital FU Chief Complaint: ER f/u abdominal pain Allergies aspirin Allergy (Verified 04/15/25 13:40) Rash codeine Allergy (Verified 04/15/25 13:40) Rash Medications ???Medication ???Instructions ???Recorded ???Confirmed ???Type famotidine 20 mg tablet (Acid 20 mg PO DAILY 04/13/25 04/22/25 H istory Controller) fexofenadine 180 mg tablet 180 mg PO DAILY 04/13/25 04/22/25 History (Elli Hives) ibuprofen 200 mg tablet (Advil) 400 mg PO Q6H PRN fever or pain 04/13/25 History ondansetron 4 mg disintegrating 4 mg PO Q8H PRN PRN Nausea #10 tab s 04/13/25 04/22/25 Rx tablet aloe vera 5,000 mg capsule mg PO 04/22/25 04/22/25 History black walnut pen[place] 450 mg capsule mg PO 04/22/25 04/22/25 History carica papaya 1 tab PO TID 04/22/25 04/22/25 His tory pantoprazole 40 mg tablet,delayed 40 mg PO BID #60 tabs 04/22/25 Rx release Nurse's Note: OV 04/22/25 Pt here for f/u from ER and reports abdominal pain, n/v, diarrhea, constipation, hemorrhoids, hives PFSH Medical History (Updated 04/22/25 @ 10:14 by QAMAR Perrin) Stomach ulcer Renal agenesis Surgical History (Updated 04/22/25 @ 10:14 by QAMAR Perrin) Hx of left knee surgery Hx of cervical spine surgery Hx of cholecystectomy Social History Smoking Status: Current every day smoker tobacco type: e-cigarettes HPI HPI Chief Complaint: ER f/u abdominal pain Details: HEAVEN POWER, is a 54 F who presents to the office today for establishment with [facility] ED 04.13.25 with epigastric and RUQ pain x1 month. Comes in episodes. Pt drinks about a sixpack of twisted tea 3 times per week. Hx of gastric ulcer. Discontinued PPI. Cholecystectomy 5 years ago. Work up with normal CBC, CMP and lipase. Given GI cocktail and discharged. Pt here today for evaluation after ED. Pt has had issues with epigastric pain for many years but worsening over the past few months. Pt pain is constant and dull. It will become sharp at some points. She has constant nausea, early satiety and vomiting. SHe feels her food sits in her stomach. SHe has been on pantoprazole for many years just once a day. She has constipation alternating with loose stools. She notes she has had constipation since she was a child. She has diarrhea after eating certain foods which started after getting her gallbladder out. Last EGD and colonoscopy in 2019 with normal findings. She has also been struggling with whole body hives which she ahs been told is related to anxiety. SHe started taking aloe, papaya and black walnut supplements for this. SHe does not take daily NSAIDs but has in the past for back pain. ROS Const Constitutional: Positive for fatigue and headache(s); No fever(s) or weight change ENT ENT: Positive for headache(s) and difficulty swallowing Gastro GI: Positive for abdominal pain, bloating, constipation, diarrhea, heartburn, difficulty swallowing, excessive flatus, Vomiting blood/hematemesis, loose stools, nausea/dyspepsia and vomiting; No belching, change in bowel habits, change in stool character, coffee ground emesis, cramping, feeling full early, incontinent of stools, Blood in stool, Black,tarry stools, pain with swallowing or other Musc Musculoskeletal: Positive for joint pain, back pain, joint swelling, muscle cramps, muscle weakness, stiffness and Arthritis Skin Skin: No yellowing of the eye or itchy eyes Neuro Neurology: Positive for headache(s) Psych Psychiatric: Positive for anxiety and No depression Endo Endocrine: Positive for fatigue; No weight change Aller/Imm Allergy/Immunologic: No itchy eyes Morris/Lymp Hematologic/Lymphatic: Positive for easy bruising; No easy bleeding Exam Const General: cooperative, healthy appearing and comfortable Orientation: alert [facility] Head: normal to inspection Eyes General: appearance normal, both eyes and all related structures Neck Neck: normal visual inspection Chest Chest palpation inspection: normal inspection of the chest Resp Effort Inspection: normal respiratory effort Cardio Rate: regular rate Rhythm: regular rhythm GI Inspection: normal to inspection Auscultation: normal bowel sounds Palpation: soft, no hepatosplenomegaly and nontender Assessment and Plan Assessment and Plan (1) Epigastric pain: Status: Acute Plan: (more content not included)... Normal [facility] CBC W/Diff, Automatedon 06-2 Absolute Neut Normal 2.0-7.7 [facility] Comment on above: Result Comment: PT L EFT - PER OFELIA Performed By: #### L 500.4050, L100.0100, L700.6800 #### [facility] [address] [place], [address] HCT Normal 37-47 [facility] Comment on above: Result Comment: PT L EFT - PER OFELIA Performed By: #### L 500.4050, L100.0100, L700.6800 #### [facility] [address] [place], [address] HGB Normal 12.0-15.0 [facility] Comment on above: Result Comment: PT L EFT - PER OFELIA Performed By: #### L 500.4050, L100.0100, L700.6800 #### [facility] [address] [place], [address] MCH Normal 27.0-32.0 [facility] Comment on above: Result Comment: PT L EFT - PER OFELIA Performed By: #### L 500.4050, L100.0100, L700.6800 #### [facility] [address] [place], [address] MCHC Normal 32-36 [facility] Comment on above: Result Comment: PT L EFT - PER OFELIA Performed By: #### L 500.4050, L100.0100, L700.6800 #### [facility] [address] [place], [address] MCV Normal 81-99 [facility] Comment on above: Result Comment: PT L EFT - PER OFELIA Performed By: #### L 500.4050, L100.0100, L700.6800 #### [facility] [address] [place], [address] NEUT% Normal 47-70 [facility] Comment on above: Result Comment: PT L EFT - PER OFELIA Performed By: #### L 500.4050, L100.0100, L700.6800 #### [facility] [address] [place], [address] PLT Normal 150-450 [facility] Comment on above: Result Comment: PT L EFT - PER OFELIA Performed By: #### L 500.4050, L100.0100, L700.6800 #### [facility] [address] [place], [address] RBC Normal 4.2-5.4 [facility] Comment on above: Result Comment: PT L EFT - PER OFELIA Performed By: #### L 500.4050, L100.0100, L700.6800 #### [facility] [address] [place], [address] RDW CV Normal 11.6-14.6 [facility] Comment on above: Result Comment: PT L EFT - PER OFELIA Performed By: #### L 500.4050, L100.0100, L700.6800 #### [facility] [address] [place], [address] RDW SD Normal 35.1-43.9 [facility] Comment on above: Result Comment: PT L EFT - PER OFELIA Performed By: #### L 500.4050, L100.0100, L700.6800 #### [facility] [address] [place], [address] WBC Normal 4.4-11.0 [facility] Comment on above: Result Comment: PT L EFT - PER OFELIA Performed By: #### L 500.4050, L100.0100, L700.6800 #### [facility] [address] [place], [address] Comprehensive Metabolic Prof doug 04-15-2025 ALB Normal 3.5-5.0 [facility] Comment on above: Result Comment: PT L EFT - PER OFELIA Performed By: #### L 500.4050, L100.0100, L700.6800 #### [facility] [address] [place], [address] ALK PHOS Normal 35-104 [facility] Comment on above: Result Comment: PT L EFT - PER OFELIA Performed By: #### L 500.4050, L100.0100, L700.6800 #### [facility] [address] [place], [address] ALT Normal <=34 [facility] Comment on above: Result Comment: PT L EFT - PER OFELIA Performed By: #### L 500.4050, L100.0100, L700.6800 #### [facility] [address] [place], [address] AST Normal <=31 [facility] Comment on above: Result Comment: PT L EFT - PER OFELIA Performed By: #### L 500.4050, L100.0100, L700.6800 #### [facility] [address] [place], [address] BUN Normal 4-19 [facility] Comment on above: Result Comment: PT L EFT - PER OFELIA Performed By: #### L 500.4050, L100.0100, L700.6800 #### [facility] [address] [place], [address] BUN/CRE Normal 10-20 [facility] Comment on above: Result Comment: PT L EFT - PER OFELIA Performed By: #### L 500.4050, L100.0100, L700.6800 #### [facility] [address] [place], [address] Calcium Normal 7.6-11.0 [facility] Comment on above: Result Comment: PT L EFT - PER OFELIA Performed By: #### L 500.4050, L100.0100, L700.6800 #### [facility] [address] [place], [address] CL Normal 98-108 [facility] Comment on above: Result Comment: PT L EFT - PER OFELIA Performed By: #### L 500.4050, L100.0100, L700.6800 #### [facility] [address] [place], [address] CO2 Normal 21.0-32.0 [facility] Comment on above: Result Comment: PT L EFT - PER OFELIA Performed By: #### L 500.4050, L100.0100, L700.6800 #### [facility] [address] [place], [address] CREAT,SERUM Normal 0.70-1.20 [facility] Comment on above: Result Comment: PT L EFT - PER OFELIA Performed By: #### L 500.4050, L100.0100, L700.6800 #### [facility] [address] [place], [address] eGFR Normal >60 [facility] Comment on above: Result Comment: PT L EFT - PER OFELIA Performed By: #### L 500.4050, L100.0100, L700.6800 #### [facility] [address] [place], [address] GAP Normal 5-15 [facility] Comment on above: Result Comment: PT L EFT - PER OFELIA Performed By: #### L 500.4050, L100.0100, L700.6800 #### [facility] [address] [place], [address] GLU Normal 70-99 [facility] Comment on above: Result Comment: PT L EFT - PER OFELIA Performed By: #### L 500.4050, L100.0100, L700.6800 #### [facility] [address] [place], [address] Potassium Normal 3.3-5.1 [facility] Comment on above: Result Comment: PT L EFT - PER OFELIA Performed By: #### L 500.4050, L100.0100, L700.6800 #### [facility] [address] [place], [address] T BILI Normal 0.00-1.30 [facility] Comment on above: Result Comment: PT L EFT - PER OFELIA Performed By: #### L 500.4050, L100.0100, L700.6800 #### [facility] [address] [place], [address] T PROT Normal 5.9-8.4 [facility] Comment on above: Result Comment: PT L EFT - PER OFELIA Performed By: #### L 500.4050, L100.0100, L700.6800 #### [facility] [address] [place], [address] Comprehensive Metabolic Profil Normal 133-145 [facility] Comment on above: Result Comment: PT L EFT - PER OFELIA Performed By: #### L 500.4050, L100.0100, L700.6800 #### [facility] [address] [place], [address] ,Serum,hCG Quali.on 04-15-2025 HCG, SERUM QUAL Normal [facility] Comment on above: Result Comment: PT L EFT - PER OFELIA Performed By: #### L 500.4050, L100.0100, L700.6800 #### [facility] [address] [place], [address] INTERNAL QC OK? Normal [facility] Comment on above: Result Comment: PT L EFT - PER OFELIA Performed By: #### L 500.4050, L100.0100, L700.6800 #### [facility] [address] [place], [place], [address] RECORD KIT LOT# Normal [facility] Comment on above: Result Comment: PT L EFT - PER OFELIA Performed By: #### L 500.4050, L100.0100, L700.6800 #### [facility] [address] [place], [place], [address] Absolute lymphocyte countOrd ered By: Carly Deluca on 04-13-2025 Lymphocytes Auto (Unsp spec) [#/Vol] 2.56 10*3/uL 0.83-4.51 [facility] Absolute neutrophil countOrd ered By: Carly Deluca on 04-13-2025 Neutrophils (Bld) [#/Vol] 7.5 10*3/uL 2.0-7.7 [facility] Anion gap in Serum or Plasma Ordered By: Carly Deluca on 04-13-2025 Anion gap [Moles/Vol] 14 mmol/L 5-15 [facility] Automated lymphocyte count a s percentage of total leukocytesOrdered By: Carly Deluca on 04-13-2025 Lymphocytes/100 WBC Auto (Unsp spec) 21.5 % 19-41 [facility] BUN/creatinine ratioOrdered By: Carly Deluca on 04-13-2025 Urea nitrogen/Creatinine [Mass ratio] 16.4 mg/mg 10-20 [facility] Basophil percentageOrdered B y: Carly Deluca on 04-13-2025 Basophils/100 WBC (Bld) 0.6 % 0-1 [facility] Bilirubin, totalOrdered By: Carly Deluca on 04-13-2025 Bilirubin [Mass/Vol] 0.55 mg/dL 0.00-1.30 [facility] CBC W/Diff, Automatedon 03-24 Absolute Lymph 2.56 X10 3/uL Normal 0.83-4.51 [facility] Comment on above: Performed By: #### L 501.2450, L100.0100, L500.4050 #### [facility] [address] [place], [address] Absolute Neut 7.5 X10 3/uL Normal 2.0-7.7 [facility] Comment on above: Performed By: #### L 501.2450, L100.0100, L500.4050 #### [facility] [address] [place], [address] Basophils/100 WBC (Bld) 0.6 % Normal 0-1 [facility] Comment on above: Performed By: #### L 501.2450, L100.0100, L500.4050 #### [facility] [address] [place], [address] Eosinophils/100 WBC (Bld) 4.9 % Normal 0-5 [facility] Comment on above: Performed By: #### L 501.2450, L100.0100, L500.4050 #### [facility] [address] [place], [address] Erythrocyte distribution width (RBC) [Ratio] 12.9 % Normal 11.6-14.6 [facility] Comment on above: Performed By: #### L 501.2450, L100.0100, L500.4050 #### [facility] [address] [place], [address] Hematocrit (Bld) [Volume fraction] 40.2 % Normal 37-47 [facility] Comment on above: Performed By: #### L 501.2450, L100.0100, L500.4050 #### [facility] [address] [place], [address] Hemoglobin (Bld) [Mass/Vol] 13.6 g/dL Normal 12.0-15.0 [facility] Comment on above: Performed By: #### L 501.2450, L100.0100, L500.4050 #### [facility] [address] [place], [address] IG% 0.300 Normal 0.0-0.9 [facility] Comment on above: Result Comment: IG% - Immature Granulocytes (promyelocytes, myelocytes and metamyelocytes) > 1% indicates that a LEFT SHIFT is Present. Performed By: #### L 501.2450, L100.0100, L500.4050 #### [facility] [address] [place], [address] Lymphocytes/100 WBC (Bld) 21.5 % Normal 19-41 [facility] Comment on above: Performed By: #### L 501.2450, L100.0100, L500.4050 #### [facility] [address] [place], [address] MCH (RBC) [Entitic mass] 32.5 pg High 27.0-32.0 [facility] Comment on above: Performed By: #### L 501.2450, L100.0100, L500.4050 #### [facility] [address] [place], [address] MCHC (RBC) [Mass/Vol] 33.8 g/dL Normal 32-36 [facility] Comment on above: Performed By: #### L 501.2450, L100.0100, L500.4050 #### [facility] [address] [place], [address] MCV (RBC) [Entitic vol] 95.9 fL Normal 81-99 [facility] Comment on above: Performed By: #### L 501.2450, L100.0100, L500.4050 #### [facility] [address] [place], [address] Monocytes/100 WBC (Bld) 10.0 % Normal 0-10 [facility] Comment on above: Performed By: #### L 501.2450, L100.0100, L500.4050 #### [facility] [address] [place], [address] Neutrophils/100 WBC (Bld) 62.7 % Normal 47-70 [facility] Comment on above: Performed By: #### L 501.2450, L100.0100, L500.4050 #### [facility] [address] [place], [address] Nucleated RBC (Bld) [#/Vol] 0 10*3/uL Normal 0-5 [facility] Comment on above: Performed By: #### L 501.2450, L100.0100, L500.4050 #### [facility] [address] [place], [address] Platelet mean volume (Bld) [Entitic vol] 9.4 fL Normal 6.2-12.0 [facility] Comment on above: Performed By: #### L 501.2450, L100.0100, L500.4050 #### [facility] [address] [place], [address] Platelets (Bld) [#/Vol] 280 10*3/uL Normal 150-450 [facility] Comment on above: Performed By: #### L 501.2450, L100.0100, L500.4050 #### [facility] [address] [place], [address] RBC (Bld) [#/Vol] 4.19 10*6/uL Low 4.2-5.4 [facility] Comment on above: Performed By: #### L 501.2450, L100.0100, L500.4050 #### [facility] [address] [place], [address] RDW SD 45.6 fl High 35.1-43.9 [facility] Comment on above: Performed By: #### L 501.2450, L100.0100, L500.4050 #### [facility] [address] [place], [address] WBC (Bld) [#/Vol] 11.9 10*3/uL High 4.4-11.0 [facility] Comment on above: Performed By: #### L 501.2450, L100.0100, L500.4050 #### [facility] [address] [place], [address] Carbon dioxide, total [Moles /volume] in Central venous bloodOrdered By: Carly Deluca on 04-13-2025 CO2 [Moles/Vol] 25.1 mmol/L 21.0-32.0 [facility] Chloride assayOrdered By: Hope Deluca on 04-13-2025 Chloride [Moles/Vol] 102 mmol/L 98-108 [facility] Comprehensive Metabolic Prof ilon 04-13-2025 Albumin [Mass/Vol] 4.2 g/dL Normal 3.5-5.0 [facility] Comment on above: Performed By: #### L 501.2450, L100.0100, L500.4050 #### [facility] [address] [place], [address] Albumin/Globulin [Mass ratio] 1.5 {ratio} Normal 0.9-2.4 [facility] Comment on above: Performed By: #### L 501.2450, L100.0100, L500.4050 #### [facility] [address] [place], [address] ALK PHOS 109 U/L High 35-104 [facility] Comment on above: Performed By: #### L 501.2450, L100.0100, L500.4050 #### [facility] [address] [place], [address] ALT [Catalytic activity/Vol] 20 U/L Normal <=34 [facility] Comment on above: Result Comment: Hemo lysis present, Results??could be affected. ?? Performed By: #### L 501.2450, L100.0100, L500.4050 #### [facility] [address] [place], [address] AST [Catalytic activity/Vol] 33 U/L High <=31 [facility] Comment on above: Result Comment: Hemo lysis present, Results??could be affected. ?? Performed By: #### L 501.2450, L100.0100, L500.4050 #### [facility] [address] [place], [address] Bilirubin [Mass/Vol] 0.55 mg/dL Normal 0.00-1.30 [facility] Comment on above: Performed By: #### L 501.2450, L100.0100, L500.4050 #### [facility] [address] [place], [address] BUN/CRE 16.4 RATIO Normal 10-20 [facility] Comment on above: Performed By: #### L 501.2450, L100.0100, L500.4050 #### [facility] [address] [place], [address] Calcium [Mass/Vol] 9.8 mg/dL Normal 7.6-11.0 [facility] Comment on above: Performed By: #### L 501.2450, L100.0100, L500.4050 #### [facility] [address] [place], [address] Chloride [Moles/Vol] 102 mmol/L Normal 98-108 [facility] Comment on above: Performed By: #### L 501.2450, L100.0100, L500.4050 #### [facility] [address] [place], [address] CO2 [Moles/Vol] 25.1 mmol/L Normal 21.0-32.0 [facility] Comment on above: Performed By: #### L 501.2450, L100.0100, L500.4050 #### [facility] [address] [place], [address] Creatinine [Mass/Vol] 1.06 mg/dL Normal 0.70-1.20 [facility] Comment on above: Performed By: #### L 501.2450, L100.0100, L500.4050 #### [facility] [address] [place], [address] ECRCL 60.00 ml/min Normal 50-250 [facility] Comment on above: Performed By: #### L 501.2450, L100.0100, L500.4050 #### [facility] [address] [place], [address] GAP 14 Normal 5-15 [facility] Comment on above: Performed By: #### L 501.2450, L100.0100, L500.4050 #### [facility] [address] [place], [address] GFR/1.73 sq M.predicted among non-blacks MDRD (S/P/Bld) [Vol rate/Area] 63 mL/min/{1.73_m2} Normal >60 [facility] Comment on above: Result Comment: mL/m in/1.73m2 CKD-EPI Creatinine Equation (2020) Performed By: #### L 501.2450, L100.0100, L500.4050 #### [facility] [address] [place], [address] Globulin (S) [Mass/Vol] 2.9 g/dL Normal 2.2-4.2 [facility] Comment on above: Performed By: #### L 501.2450, L100.0100, L500.4050 #### [facility] [address] [place], [address] Glucose [Mass/Vol] 91 mg/dL Normal 70-99 [facility] Comment on above: Performed By: #### L 501.2450, L100.0100, L500.4050 #### [facility] [address] [place], [address] Potassium [Moles/Vol] 4.2 mmol/L Normal 3.3-5.1 [facility] Comment on above: Result Comment: Hemo lysis present, Results??could be affected. ?? Performed By: #### L 501.2450, L100.0100, L500.4050 #### [facility] [address] [place], [address] Sodium [Moles/Vol] 141 mmol/L Normal 133-145 [facility] Comment on above: Performed By: #### L 501.2450, L100.0100, L500.4050 #### [facility] [address] [place], [address] T PROT 7.1 g/dL Normal 5.9-8.4 [facility] Comment on above: Performed By: #### L 501.2450, L100.0100, L500.4050 #### [facility] [address] [place], [address] Urea nitrogen [Mass/Vol] 17 mg/dL Normal 4-19 [facility] Comment on above: Performed By: #### L 501.2450, L100.0100, L500.4050 #### [facility] [address] [place], [address] Emergency Department Summary on 04-13-2025 Emergency Department Summary [facility] Medical Records Department [address] [place] [address] Emergency Department Summary 04/13/25 MR#: [id number] Acct: [id number] Name: HEAVEN POWER Rep #: [id number] : 1970 54 From: Carly FOOTE PCP: Care Physician,No Primary Status:DEP ER Location: ED HPI HPI - GI History of Present Illness Chief Complaint: Abd Pain Narrative Narrative: Patient presenting today with epigastric and right upper quadrant abdominal pain she has had over the past month. She reports that she has been in pain consistently but has had about 6 episodes of, "pain attacks" where her pain will be severe and then subside. Nothing seems to make her pain worse. She does admit to alcohol use, she drinks about a sixpack of twisted teas about 3 times per week. She also endorses a history of a gastric ulcer several years ago. She is supposed to be taking Protonix but did not feel like it was helping so she discontinued taking it. Additionally, she reports dark-colored stools over the past month. However, she thinks this is due to a herbal supplement that she has been taking. She denies history of GI bleed. She is on no blood thinners. Previous abdominal surgeries include cholecystectomy about 5 years ago. [facility] Medical History Stomach ulcer Renal agenesis Home Medications ???Medication ???Instructions ???Recorded ???Last Taken ???Type famotidine 20 mg tablet (Acid 20 mg PO DAILY 04/13/25 04/13/25 H istory Controller) fexofenadine 180 mg tablet 180 mg PO DAILY 04/13/25 04/13/25 History (Leli Hives) ibuprofen 200 mg tablet (Advil) 400 mg PO Q6H PRN fever or pain 04/13/25 History ondansetron 4 mg disintegrating 4 mg PO Q8H PRN PRN Nausea #10 tab s 04/13/25 Unknown Rx tablet Allergy/AdvReac Type Severity Reaction Status Date / Time aspirin Allergy Rash Verified 04/13/25 12:43 codeine Allergy Rash Verified 04/13/25 12:43 Surgical History Hx of left knee surgery Hx of cervical spine surgery Hx of cholecystectomy Social History Smoking Status: Current every day smoker tobacco type: e-cigarettes ROS ROS ED Constitutional Constitutional ED: Denies chills or fever(s) Cardiovascular Cardiovascular: Denies chest pain Respiratory/Chest Respiratory/Chest: Denies dyspnea Gastrointestinal Gastrointestinal: Reports abdominal pain, nausea and vomiting; Denies diarrhea Genitourinary Genitourinary ED: Denies dysuria, hematuria or urinary urgency Musculoskeletal Musculoskeletal: Denies arthralgias or myalgias EXAM Physical Exam Const Vital Signs: 04/13/25 12:43 04/13/25 14:43 04/13/25 15:33 Temperature 97.9 F 98.3 F Temperature Source Oral Pulse Rate 99 88 86 Respiratory Rate 16 12 12 Blood Pressure 151/91 H 147/82 H 141/88 H Blood Pressure Mean 111 103 105 Pulse Ox 100 97 98 Oxygen Delivery Method Room Air Room Air Positive well nourished, well developed and no apparent distress General Appearance ED: well developed HEENT Reports normocephalic and head/scalp atraumatic Mouth ED: Yes moist mucous membranes normal Eyes PERRL and EOMs intact bilaterally Neck full ROM and supple Chest Wall inspection of chest normal Resp normal respiratory effort and clear to auscultation bilaterally Cardio regular rate and regular rhythm GI soft to palpation, non-distended and no masses GI Narrative: Tenderness to palpation to the right upper quadrant and epigastrium. Palpation: Negative for guarding, rigid, hepatomegaly or splenomegaly Back/Spine normal ROM and normal to inspection Extremity normal to inspection and full ROM Neuro oriented x3, CN's II-XII intact bilaterally, moves all extremities, no focal motor deficits and no sensory deficits noted Sensorium / Orientation: awake and alert Psych mental status grossly normal and thought process normal Skin no rashes or lesions noted and no wounds Physical Exam Const Vital Signs: 04/13/25 12:43 04/13/25 14:43 04/13/25 15:33 Temperature 97.9 F 98.3 F Temperature Source Oral Pulse Rate 99 88 86 Respiratory Rate 16 12 12 Blood Pressure 151/91 H 147/82 H 141/88 H Blood Pressure Mean 111 103 105 Pulse Ox 100 97 98 Oxygen Delivery Method Room Air Room Air MDM MDM MDM Narrative Medical decision making narrative: Patient presenting today with epigastric and right upper quadrant pain that has been ongoing for about a month. She does have associated nausea and vomiting off and on. She has a history of a cholecystectomy. She does admit to frequent alcohol use. Labs were (more content not included)... Normal [facility] Eosinophil percentageOrdered By: Carly Deluca on 04-13-2025 Eosinophils/100 WBC (Bld) 4.9 % 0-5 [facility] Erythrocyte distribution wid th ratioOrdered By: Carly Deluca on 04-13-2025 Erythrocyte distribution width (RBC) [Ratio] 12.9 % 11.6-14.6 [facility] Erythrocyte distribution wid th standard deviationOrdered By: Carly Deluca on 04-13-2025 Erythrocyte distribution width (RBC) [Ratio] 45.6 fl High 35.1-43.9 [facility] Glomerular filtration rate ( GFR) estimation/1.73 sq m using serum, plasma, or whole bOrdered By: Carly Deluca on 04-13-2025 GFR/1.73 sq M.predicted among non-blacks MDRD (S/P/Bld) [Vol rate/Area] 63 mL/min/{1.73_m2} >60 [facility] Comment on above: mL/min/1.73m2 CKD-EP I Creatinine Equation (2020) Hematocrit Auto (Bld) [Volum e fraction]Ordered By: Carly Deluca on 04-13-2025 Hematocrit (Bld) [Volume fraction] 40.2 % 37-47 [facility] Hemoglobin measurementOrdere d By: Carly Deluca on 04-13-2025 Hemoglobin (Bld) [Mass/Vol] 13.6 g/dL 12.0-15.0 [facility] Immature granulocytes/100 WB C Auto (Bld)Ordered By: Carly Deluca on 04-13-2025 Immature granulocytes/100 WBC (Bld) 0.300 % 0.0-0.9 [facility] Comment on above: IG% - Immature Granu locytes (promyelocytes, myelocytes and metamyelocytes) > 1% indicates that a LEFT SHIFT is Present. Laboratory - Chemistry and C hemistry - challengeOrdered By: Carly Deluca on 04-13-2025 AST [Catalytic activity/Vol] 33 U/L High <32 [facility] Comment on above: Hemolysis present, R esults could be affected. Lipaseon 04-13-2025 Lipase [Catalytic activity/Vol] 54 U/L Normal 13-75 [facility] Comment on above: Result Comment: Colten saleh note: LIPASE revised reference range effective 23. New Lipase methodology. Expected to produce lower values than the previous assay method. NEW Reference Range: 13 - 75 U/L Performed By: #### L 501.2450, L100.0100, L500.4050 #### [facility] [address] [place], [address] Lipase measurementOrdered By : Carly Deluca on 04-13-2025 Lipase [Catalytic activity/Vol] 54 U/L 13-75 [facility] Comment on above: Please note:LIPASE r evised reference range effective 23. New Lipase methodology. Expected to produce lower values than the previous assay method. NEW Reference Range: 13 - 75 U/L MCV (mean corpuscular volume ) determinationOrdered By: Carly Deluca on 04-13-2025 MCV (RBC) [Entitic vol] 95.9 fL 81-99 [facility] Mean corpuscular hemoglobin (MCH) determinationOrdered By: Carly Deluca on 04-13-2025 MCH (RBC) [Entitic mass] 32.5 pg High 27.0-32.0 [facility] Mean corpuscular hemoglobin concentration (MCHC) determinationOrdered By: Carly Deluca on 04-13-2025 MCHC (RBC) [Mass/Vol] 33.8 g/dL 32-36 [facility] Mean platelet volume determi nationOrdered By: Carly Deluca on 04-13-2025 Platelet mean volume (Bld) [Entitic vol] 9.4 fL 6.2-12.0 [facility] Monocyte percentageOrdered B y: Carly Deluca on 04-13-2025 Monocytes/100 WBC (Bld) 10.0 % 0-10 [facility] Neutrophil percentageOrdered By: Carly Deluca on 04-13-2025 Neutrophils/100 WBC (Bld) 62.7 % 47-70 [facility] Nucleated red blood cell per centageOrdered By: Carly Deluca on 04-13-2025 Nucleated RBC/100 WBC (Bld) [Ratio] 0 % 0-5 [facility] Platelet countOrdered By: Hope Deluca on 04-13-2025 Platelets (Bld) [#/Vol] 280 10*3/uL 150-450 [facility] Potassium measurement (mass/ volume)Ordered By: Carly Deluca on 04-13-2025 Potassium (Unsp spec) [Mass/Vol] 4.2 mmol/L 3.3-5.1 [facility] Comment on above: Hemolysis present, R esults could be affected. RBC Auto (Bld) [#/Vol]Ordere d By: Carly Deluca on 04-13-2025 RBC (Bld) [#/Vol] 4.19 10*6/uL Low 4.2-5.4 [facility] Serum creatinine measurement (mass/volume)Ordered By: Carly Deluca on 04-13-2025 Creatinine [Mass/Vol] 1.06 mg/dL 0.70-1.20 [facility] Serum globulin measurementOr dered By: Carly Deluca on 04-13-2025 Globulin (S) [Mass/Vol] 2.9 g/dL 2.2-4.2 [facility] Serum glucose measurement (m ass/volume)Ordered By: Carly Deluca on 04-13-2025 Glucose [Mass/Vol] 91 mg/dL 70-99 [facility] Serum or plasma alanine mario otransferase (ALT) measurementOrdered By: Carly Deluca on 04-13-2025 ALT [Catalytic activity/Vol] 20 U/L <35 [facility] Comment on above: Hemolysis present, R esults could be affected. Serum or plasma albumin cresencio urement (mass/volume)Ordered By: Carly Deluca on 04-13-2025 Albumin [Mass/Vol] 4.2 g/dL 3.5-5.0 [facility] Serum or plasma albumin/glob ulin mass ratioOrdered By: Carly Deluca on 04-13-2025 Albumin/Globulin [Mass ratio] 1.5 {ratio} 0.9-2.4 [facility] Serum or plasma alkaline ga sphatase measurementOrdered By: Carly Deluca on 04-13-2025 ALP [Catalytic activity/Vol] 109 U/L High 35-104 [facility] Serum or plasma calcium cresencio urement (mass/volume)Ordered By: Carly Deluca on 04-13-2025 Calcium [Mass/Vol] 9.8 mg/dL 7.6-11.0 [facility] Serum or plasma urea nitroge n measurement (mass/volume)Ordered By: Carly Deluca on 04-13-2025 Urea nitrogen [Mass/Vol] 17 mg/dL 4-19 [facility] Sodium levelOrdered By: Galo Deluca on 04-13-2025 Sodium [Moles/Vol] 141 mmol/L 133-145 [facility] Total proteinOrdered By: Kyle Deluca on 04-13-2025 Protein [Mass/Vol] 7.1 g/dL 5.9-8.4 [facility] White blood cell (WBC) count Ordered By: Carly Deluca on 04-13-2025 WBC (Bld) [#/Vol] 11.9 10*3/uL High 4.4-11.0 [facility] Emergency Department Summary on 03-07-2025 Emergency Department Summary [facility] Medical Records Department [address] [place] [address] Emergency Department Summary 03/07/25 MR#: [id number] Acct: [id number] Name: HEAVEN POWER Rep #: [id number] : 1970 54 From: Hanna Regalado DO PCP: Care Physician,No Primary Status:DEP [...] or chest pain or shortness of breath. [facility] Medical History (Updated 03/07/25 @ 15:58 by [...] Ox 100 Oxygen Delivery Method Room Air MDM MDM MDM Narrative Medical decision making narrative: Patient has hives over the last 2 weeks. No clear exposure. No new medications. She states they come and go. She looks well nontoxic. Vital signs stable. Exam is consistent with urticaria. She has no systemic symptoms. She was treated with IM Kenalog and should continue [id number] allergy medication as needed. She was discharged in stable condition. [facility] Treatment and Re-Evaluation :: I have personally [...] no involvemen (more content not included)... Normal [facility] Zainab SUKHDEEP BILon 2022 [facility] SUKHDEEP MOLLY * * *Final Report* * * DATE OF EXAM: Aug 01 2023 2:02PM [id number] - [facility] W SUKHDEEP MOLLY / PROCEDURE REASON: N64.4 * * * * Physician Interpretation * * * * RESULT: #[id number] - [facility] W SUKHDEEP MOLLY #[id number] - [facility] BREAST LTD LT #[id number] - [facility] BREAST LTD RT BILATERAL DIGITAL DIAGNOSTIC MAMMOGRAM [...] Health, Family Medicine, and Medical/Surgical Oncology, the [place] has carefully reviewed the data and reached [...] their providers when to stop screening mammograms. Operations Support Professionals(s): Kamila Cabrera, [facility]; Terri Rodriguez, RT(R)(M), [facility] OVERALL STUDY BIRADS: 1 Negative Silk Screen Layout Drafter: Gabo Transcribe Date/Time: Aug 01 2023 1:26P Dictated by: ANURADHA CALDERÓN MD This examination was interpreted and the report reviewed and electronically signed by: ANURADHA CALDERÓN MD on Aug 01 2023 2:17PM EST [id number] Normal [facility] US BREAST LTD LTon 08-01 [facility] US BREAST LTD LT * * *Final Report* * * DATE OF EXAM: Aug 01 2023 2:11PM [id number] - [facility] [employer] BREAST LTD LT / PROCEDURE REASON: N64.4 * * * * Physician Interpretation * * * * #[id number] - [facility] DIAG W SUKHDEEP MOLLY #[id number] - [facility] US BREAST LTD LT #[id number] - [facility] [employer] BREAST LTD RT BILATERAL DIGITAL DIAGNOSTIC MAMMOGRAM [...] Health, Family Medicine, and Medical/Surgical Oncology, the [place] has carefully reviewed the data and reached [...] their providers when to stop screening mammograms. Operations Support Professionals(s): Kamila Cabrera, [facility]; RT Gonzalo(R)(M), [facility] OVERALL STUDY BIRADS: 1 Negative Silk Screen Layout Drafter: Gabo Transcribe Date/Time: Aug 01 2023 1:26P Dictated by : ANURADHA CALDERÓN MD This examination was interpreted and the report reviewed and electronically signed by: ANURADHA CALDERÓN MD on Aug 01 2023 2:17PM EST [id number] Normal [facility] US BREAST LTD RTon 08-01 [facility] US BREAST LTD RT * * *Final Report* * * DATE OF EXAM: Aug 01 2023 2:11PM [id number] 0594 - [facility] US BREAST LTD RT / PROCEDURE REASON: N64.4 * * * * Physician Interpretation * * * * #[id number] - [facility] FERMIN BELL MOLLY #[id number] - [facility] [employer] BREAST LTD LT #[id number] - [facility] BREAST [facility] RT BILATERAL DIGITAL DIAGNOSTIC MAMMOGRAM TOMOSYNTHESIS WITH [...] Health, Family Medicine, and Medical/Surgical Oncology, the [place] has carefully reviewed the data and reached [...] their providers when to stop screening mammograms. Operations Support Professionals(s): Kamila Cabrera, [facility]; RT Gonzalo(Jose L)(M), [facility] OVERALL STUDY BIRADS: 1 Negative Silk Screen Layout Drafter: Gabo Transcribe Date/Time: Aug 01 2023 1:26P Dictated by : ANURADHA CALDERÓN MD This examination was interpreted and the report reviewed and electronically signed by: ANURADHA CALDERÓN MD on Aug 01 2023 2:17PM EST [id number] Normal [facility] CULTURE BLOOD (Two)on 2021 Microscopic examination of blood, culture CULTURE BLOOD (Two) --> Status: F No growth at 5 days. Normal [facility] Comment on above: Performed By: #### C /BLT ####[facility] [place] [address] CULTURE BLOODon 08-13-2022 Microscopic examination of blood, culture CULTURE BLOOD --> Status: F Streptococcus species DETECTED. Presumptive identification performed using [employer] Film[employer] PCR methodology; confirmatory identification to follow. _ The Unfold[employer] BCID2 PCR Panel can detect the following [...] VIM, and mcr-1. Presumptive identification performed using [employer] PCR methodology; confirmatory identification to follow. _ The [employer] BCID2 PCR Panel can detect the following [...] be positive with the same organism. Normal [facility] Comment on above: Performed By: #### Butch /KALAD ####[facility] [place] [address] CULTURE URINEon 08-13-2022 CULTURE URINE 1 Organism Escherich ia coli >100,000 CFU/ml 1 Organism Antibiotic Result Intrp Ampicillin(TANMAY) <= 2.0 S Cefazolin(TANMAY) <= 4.0 S Ceftriaxone(TANMAY) <= 1.0 S Cefepime(TANMAY) <= 1.0 S Aztreonam(TANMAY) <= 1.0 S Amoxicillin/Clavulanic Acid(TANMAY) <= 2.0 S Ampicillin/Sulbactam(M IC) <= 2.0 S Pip/Tazobactam(TANMAY) <= 4.0 S Meropenem(TANMAY) <= 0.25 S Ciprofloxacin(TANMAY) <= 0.25 S Trimeth/Sulfa(TANMAY) <= 20.0 S Nitrofurantoin(TANMAY) <= 16.0 S Gentamicin(TANMAY) <= 1.0 S Amikacin(TANMAY) <= 2.0 S Normal [facility] Comment on above: Performed By: #### C /UR #### [facility] [address] [place] [address] [id number] Basic Metabolic Panelon 10-2 0-2021 Anion gap [Moles/Vol] 3 mmol/L Normal 3-13 [facility] Comment on above: Performed By: #### H EMDF, LACT3, BMP3 #### [facility] [address] [place] [address] Calcium [Mass/Vol] 9.7 mg/dL Normal 8.4-10.4 [facility] Comment on above: Performed By: #### H EMDF, LACT3, BMP3 #### [facility] [address] [place] [address] CO2 [Moles/Vol] 27 mmol/L Normal 22-30 [facility] Comment on above: Performed By: #### H EMDF, LACT3, BMP3 #### [facility] [address] [place] [address] Glucose [Mass/Vol] 109 mg/dL High 70-100 [facility] Comment on above: Performed By: #### H EMDF, LACT3, BMP3 #### [facility] [address] [place] [address] Urea nitrogen [Mass/Vol] 13 mg/dL Normal 9-20 [facility] Comment on above: Performed By: #### H EMDF, LACT3, BMP3 #### [facility] [address] [place] [address] Creatinine [Mass/Vol] 0.94 mg/dL Normal 0.52-1.25 [facility] Comment on above: Performed By: #### H EMDF, LACT3, BMP3 #### [facility] [address] [place] [address] GFR/1.73 sq M.predicted among blacks MDRD (S/P/Bld) [Vol rate/Area] 81.4 mL/min/{1.73_m2} Normal >60 [facility] Comment on above: Performed By: #### H EMDF, LACT3, BMP3 #### [facility] [address] [place] [address] GFR/1.73 sq M.predicted among non-blacks MDRD (S/P/Bld) [Vol rate/Area] 70.2 mL/min/{1.73_m2} Normal >60 [facility] Comment on above: Result Comment: KDIG [...] By: #### H EMDF, LACT3, BMP3 #### [facility] [address] [place] [address] Chloride [Moles/Vol] 105 mmol/L Normal 98-107 [facility] Comment on above: Performed By: #### H EMDF, LACT3, BMP3 #### [facility] [address] [place] [address] Potassium [Moles/Vol] 4.0 mmol/L Normal 3.5-5.1 [facility] Comment on above: Performed By: #### H EMDF, LACT3, BMP3 #### [facility] [address] [place] [address] Sodium [Moles/Vol] 135 mmol/L Normal 135-145 [facility] Comment on above: Performed By: #### H EMDF, LACT3, BMP3 #### [facility] [address] [place] [address] CR Chest Portableon 08-11-20 CR Chest Portable [facility]: [id number] Radiology ACCESSION EXAM DATE/TIME PROCEDURE ORDERING PROVIDER [id number] 08/10/2022 22:39 EDT CR Chest Portable MD BRAIN, LIZETT [place] CPT code 60139 Reason For Exam (CR Chest Portable) fever, [...] Report Dictated on Final Dictating Physician: MD MUSE JASON Signed Date and Time: 08/11/2022 2:04 am Signed by: MD MUSE JASON Transcribed Date and Time: 08/11/2022 2:05 Normal [facility] CT Abdomen and Pelvis W cont rast Tania 08-11-2022 Patient Name: HEAVEN POWER Computed Tomography ACCESSION EXAM DATE/TIME PROCEDURE ORDERING PROVIDER [id number] 08/11/2022 00:[address] Abdomen/Pelvis w/ IV MD BRAIN, LIZETT [place] Contrast (IV Onl CPT code 34731 Q9967 Reason For Exam (CT Abdomen/Pelvis w/ [...] is identified. Free air or fluid: None. Mesenteric/retroperito leni: No adenopathy or inflammation. Aorta: Aortoiliac atherosclerotic [...] wall thickening and edema; correlate with possible infectious/inflammator y gastroduodenitis. Report Dictated on --- Final --- Dictating Physician: MD MUSE JASON Signed Date and Time: 08/11/2022 0:45 am Signed by: MD MUSE JASON Transcribed Date and Time: 08/11/2022 0:46 [facility] Juan Diego Muse MD - 08/11/2022 Patient Name: HEAVEN POWER Computed Tomography ACCESSION EXAM DATE/TIME PROCEDURE ORDERING PROVIDER [id number] 08/11/2022 00:[address] Abdomen/Pelvis w/ IV MD BRAIN, LIZETT [place] Contrast (IV Onl CPT code 38592 Q9967 Reason For Exam (CT Abdomen/Pelvis w/ [...] is identified. Free air or fluid: None. Mesenteric/retroperito leni: No adenopathy or inflammation. Aorta: Aortoiliac atherosclerotic [...] wall thickening and edema; correlate with possible infectious/inflammator y gastroduodenitis. Report Dictated on --- Final --- Dictating Physician: MD MUSE JASON Signed Date and Time: 08/11/2022 0:45 am Signed by: MD MUSE JASON Transcribed Date and Time: 08/11/2022 0:46 [facility] Work Phone: CT Abdomen and Pelvis W cont rast IVOrdered By: Juan Diego Muse on 08-11-2022 [facility] Work Phone: CT Abdomen/Pelvis w/ Contras ton 08-11-2022 CT Abdomen/Pelvis w/ Contrast Patient Name: HEAVEN POWER Computed Tomography ACCESSION EXAM DATE/TIME PROCEDURE ORDERING PROVIDER [id number] 08/11/2022 00:[address] Abdomen/Pelvis w/ IV MD BRAIN, LIZETT D Contrast (IV Onl CPT code 12155 Q9967 Reason For Exam (CT Abdomen/Pelvis w/ [...] is identified. Free air or fluid: None. Mesenteric/retroperito leni: No adenopathy or inflammation. Aorta: Aortoiliac atherosclerotic [...] wall thickening and edema; correlate with possible infectious/inflammator y gastroduodenitis. Report Dictated on Final Dictating Physician: MD MUSE JASON Signed Date and Time: 08/11/2022 0:45 am Signed by: MD MUSE JASON Transcribed Date and Time: 08/11/2022 0:46 Normal [facility] Complete Urinalysison 2021 Bacteria Few (1-5) Abnormal Negative [facility] Comment on above: Result Comment: . Performed By: #### C UA2 #### [facility] [address] [place] [address] Mucous Threads Negative Normal Negative [facility] Comment on above: Result Comment: . Performed By: #### C UA2 #### [facility] [address] [place] [address] RBC, Urine 0 - 2 Normal 0-2 [facility] Comment on above: Result Comment: . Performed By: #### C UA2 #### [facility] [address] [place] [address] Squamous Epithelial 0 - 2 Normal 3-5 [facility] Comment on above: Result Comment: . Performed By: #### C UA2 #### [facility] [address] [place] [address] VOLUME, URINE 8-12 ml Normal [facility] Comment on above: Result Comment: . Performed By: #### C UA2 #### [facility] [address] [place] [address] WBC, Urine 3 - 5 Normal 0-5 [facility] Comment on above: Result Comment: . Performed By: #### C UA2 #### [facility] [address] [place] [address] Appearance (U) Clear Normal Clear [facility] Comment on above: Result Comment: . Performed By: #### C UA2 #### [facility] [address] [place] [address] Bilirubin,Urine Negative Normal Negative [facility] Comment on above: Result Comment: . Performed By: #### C UA2 #### [facility] [address] [place] [address] Color (U) LIGHT YELLOW Normal Lt. Yellow [facility] Comment on above: Result Comment: . Performed By: #### C UA2 #### [facility] [address] [place] [address] Glucose Ql (U) Normal Normal Normal (<70) [facility] Comment on above: Result Comment: . Performed By: #### C UA2 #### [facility] [address] [place] [address] Ketone,Urine Negative Normal Negative [facility] Comment on above: Result Comment: . Performed By: #### C UA2 #### [facility] [address] [place] [address] Leukocytes,Urine 25 Maryann/uL Abnormal Negative [facility] Comment on above: Result Comment: . Performed By: #### C UA2 #### [facility] [address] [place] [address] Nitrites,Urine Negative Normal Negative [facility] Comment on above: Result Comment: . Performed By: #### C UA2 #### [facility] [address] [place] [address] Occult Blood,Urine 0.03 mg/dL Abnormal Negative [facility] Comment on above: Result Comment: . Performed By: #### C UA2 #### [facility] [address] [place] [address] pH,Urine 7.5 Normal 5.0-8.0 [facility] Comment on above: Result Comment: . Performed By: #### C UA2 #### [facility] [address] [place] [address] Specific [place],Urine 1.015 Normal 1.005 - 1.030 [facility] Comment on above: Result Comment: . Performed By: #### C UA2 #### [facility] [address] [place] [address] Total Protein,Urine Negative Normal Negative [facility] Comment on above: Result Comment: . Performed By: #### C UA2 #### [facility] [address] [place] [address] Urobilinogen,Urine Normal Normal Normal (0-1) [facility] Comment on above: Result Comment: . Performed By: #### C UA2 #### [facility] [address] [place] [address] Hemogram w/ Autodiffon 08-11 Abs Baso Cnt 0.1 10*3/uL Normal 0.0-0.2 [facility] Comment on above: Performed By: #### H EMDF, LACT3, BMP3 #### [facility] [address] [place] [address] Abs Neutrophile Cnt 12.4 10*3/uL High 1.8-7.0 [facility] Comment on above: Performed By: #### H EMDF, LACT3, BMP3 #### [address] [address] Basophils/100 WBC (Bld) 0.5 % Normal 0.0-2.0 [facility] Comment on above: Performed By: #### H EMDF, LACT3, BMP3 #### [address] [place] [address] Eosinophils (Bld) [#/Vol] 0.1 10*3/uL Normal 0.0-0.5 [facility] Comment on above: Performed By: #### H EMDF, LACT3, BMP3 #### [facility] [address] [place] [address] Eosinophils/100 WBC (Bld) 0.6 % Low 1.0-6.0 [facility] Comment on above: Performed By: #### H EMDF, LACT3, BMP3 #### [facility] [address] [place] [address] Erythrocyte distribution width (RBC) [Ratio] 12.8 % Normal 11.5-14.5 [facility] Comment on above: Performed By: #### H EMDF, LACT3, BMP3 #### [facility] [address] [place] [address] Granulocytes/100 WBC (Bld) 81.7 % High 40.0-80.0 [facility] Comment on above: Performed By: #### H EMDF, LACT3, BMP3 #### [facility] [address] [place] [address] Hematocrit (Bld) [Volume fraction] 38.7 % Normal 35.0-47.0 [facility] Comment on above: Performed By: #### H EMDF, LACT3, BMP3 #### [facility] [address] [place] [address] Hemoglobin (Bld) [Mass/Vol] 13.6 g/dL Normal 11.7-16.0 [facility] Comment on above: Performed By: #### H EMDF, LACT3, BMP3 #### [address] [address] Lymphocytes (Bld) [#/Vol] 1.2 10*3/uL Normal 1.0-4.3 [facility] Comment on above: Performed By: #### H EMDF, LACT3, BMP3 #### [facility] [address] [place] [address] Lymphocytes/100 WBC (Bld) 7.7 % Low 20.0-40.0 [facility] Comment on above: Performed By: #### H EMDF, LACT3, BMP3 #### [facility] [address] [place] [address] MCH (RBC) [Entitic mass] 32.8 pg Normal 26.0-34.0 [facility] Comment on above: Performed By: #### H EMDF, LACT3, BMP3 #### [facility] [address] [place] [address] MCHC 35.1 % Normal 32.0-36.0 [facility] Comment on above: Performed By: #### H EMDF, LACT3, BMP3 #### [facility] [address] [place] [address] MCV (RBC) [Entitic vol] 93.3 fL Normal 79.0-98.0 [facility] Comment on above: Performed By: #### H EMDF, LACT3, BMP3 #### [facility] [address] [place] [address] Monocytes (Bld) [#/Vol] 1.4 10*3/uL High 0.0-0.8 [facility] Comment on above: Performed By: #### H EMDF, LACT3, BMP3 #### [facility] [address] [place] [address] Monocytes/100 WBC (Bld) 9.1 % Normal 2.0-10.0 [facility] Comment on above: Performed By: #### H EMDF, LACT3, BMP3 #### [facility] [address] [place] [address] Platelet mean volume (Bld) [Entitic vol] 9.6 fL Normal 7.4-12.4 [facility] Comment on above: Result Comment: MPV is a calculated measurement using platelet volume ratio. Performed By: #### H EMDF, LACT3, BMP3 #### [facility] [address] [place] [address] Platelets (Bld) [#/Vol] 276 10*3/uL Normal 140-440 [facility] Comment on above: Performed By: #### H EMDF, LACT3, BMP3 #### [facility] [address] [place] [address] RBC (Bld) [#/Vol] 4.15 10*6/uL Normal 3.80-5.20 [facility] Comment on above: Performed By: #### H EMDF, LACT3, BMP3 #### [facility] [address] [place] [address] WBC (Bld) [#/Vol] 15.2 10*3/uL High 3.6-10.7 [facility] Comment on above: Performed By: #### H EMDF, LACT3, BMP3 #### [facility] [address] [place] [address] Lactic Acidon 08-11-2022 Lactate [Moles/Vol] 1.5 mmol/L Normal 0.7-2.0 [facility] Comment on above: Performed By: #### H EMDF, LACT3, BMP3 #### [facility] [address] [place] [address] SARS-CoV-2, Flu A/B and RSVo n 08-11-2022 SARS-CoV-2 (COVID-19) RNA GIANFRANCO+probe Ql (Unsp spec) SARS-CoV-2 --> Status: F Not Detected. Flu A PCR --> Status: F Not Detected. Flu B PCR --> Status: F Not Detected. RSV PCR --> Status: F Not Detected. Expected Result: Not Detected _ Method: Real-time, RT-PCR This assay was developed by [email or web address] and distributed under an Emergency Use Authorization (EUA) granted by the FDA for the qualitative detection of nucleic acids from SARS-CoV-2, Influenza A, Influenza B, and Respiratory Syncytial Virus. Provider and patient fact sheets can be found at https://www.fda.gov/me lorrie/612464/download and https://www.fda.gov/id lorrie/585871/download. Expected Result: Not Detected _ Method: Real-time, RT-PCR This assay was developed by [email or web address] and distributed under an Emergency Use Authorization (EUA) granted by the FDA for the qualitative detection of nucleic acids from SARS-CoV-2, Influenza A, Influenza B, and Respiratory Syncytial Virus. Provider and patient fact sheets can be found at https://www.fda.gov/me lorrie/125246/download and https://www.fda.gov/id lorrie/577413/download. Normal [facility] Comment on above: Performed By: #### C VFLR ####[facility] [place] [address], [address] Basic Metabolic Panelon 07-23 Anion gap [Moles/Vol] 3 mmol/L 3 - 13 mmol/L [facility] Calcium [Mass/Vol] 9.7 mg/dL 8.4 - 10. 4 mg/dL [facility] Chloride [Moles/Vol] 105 mmol/L 98 - 10 7 mmol/L [facility] CO2 [Moles/Vol] 27 mmol/L 22 - 30 mmol/L [facility] Creatinine [Mass/Vol] 0.94 mg/dL 0.52 - 1.25 mg/dL [facility] EGFR IF NonAfrican Kazakh 70.2 mL/min 60 - PINF mL/min [facility] [...] serum creatinine in children is the Bedside Folyd equation. It is less accurate in patients [...] - 20 mg/dL [facility] Test Performed by [facility] [employer] [facility], [facility] , [address] LAB [facility] CBC with Auto Differentialon 08-10-2022 Absolute Baso [...] [Mass/Vol] 13.6 g/dL 11.7 - 16 g/dL [facility] Interpretation and review of laboratory results [...] [#/Vol] 276 10*3/uL 140 - 440 10*3/uL [facility] RBC (Bld) [#/Vol] 4.15 10*6/uL 3.8 - 5.2 10*6/uL [facility] WBC (Bld) [#/Vol] 15.2 10*3/uL High 3.6 - 10.7 10*3/uL [facility] Test Performed by [facility], [facility] [address] , [address] LAB [facility] COVID-19, Flu A/B, and RSV C ombo 08-10-2022 Influenza A by PCR Not detected [facility] A Influenza B by PCR Not detected [facility] A RSV PCR Not Detected. Expected Result: Not Detected _ Method: Real-time, RT-PCR This assay was developed by [email or web address] and distributed under an Emergency Use Authorization (EUA) granted by the FDA for the qualitative detection of nucleic acids from SARS-CoV-2, Influenza A, Influenza B, and Respiratory Syncytial Virus. Provider and patient fact sheets can be found at https://www.[facility].gov/id lorrie/274303/download and https://www.fda.gov/id lorrie/378238/download. [facility] SARS-CoV-2 (COVID-19) RNA GIANFRANCO+probe Ql (Unsp spec) Not detected [facility] Test Performed by [facility], [address] , [address] [facility] Pelvis W cont rast Tania 08-10-2022 Radiology Study observation (narrative) [facility] Work Phone: Lactic Acidon 08-10-2022 Lactate [Moles/Vol] 1.5 mmol/L 0.7 - 2 mmol/L [facility] Test Performed by [facility] [employer], [address] , [address] [facility] Ur[facility] 08-10-2022 Appearance (U) Clear Clear NA [facility] Comment on above: . Bacteria, UA Few [...] /[HPF] [facility] Comment on above: . Specific [place], Urine 1.015 S [facility] Comment on above: . Squam Epithel, UA 0-2 3 - 5 /[HPF] [facility] Comment on above: . Total Protein, Urine Negative Negativ e mg/dL [facility] Comment on above: . Urobilinogen, Urine Normal Normal ( 0-1) mg/dL [facility] Comment on above: . Volume 8-12 ml [facility] Comment on above: . WBC, UA /[HPF] 0 - 5 /[HPF] [facility] Comment on above: . Test Performed by [facility], [address] , [address] [facility] MG Breast Tomosynthesis Scr Blon 08-01-2022 MG Breast Tomosynthesis Scr Bl Patient Name: HEAVEN POWER Mammography ACCESSION EXAM DATE/TIME PROCEDURE ORDERING PROVIDER [id number] 08/01/2022 14:07 EDT MG Breast Tomosynthesis DO WIGGINS EUGENE F. BI Scr CPT code 22349 22741 Reason For Exam (MG Breast Tomosynthesis BI [...] MG breast tomosynthesis bl scr performed at [facility]. February 04, 2019, bilateral MG breast tomosynthesis bl scr performed at [facility]. November 10, 2015, bilateral screening mammogram performed at [facility]. TISSUE DENSITY: BIRADS B - There are [...] = Nipples; skin lesions Mammography Report Open sokaogon = Palpable Line = Scar 2D digital [...] Time: 08/01/2022 2:28 pm Signed by: MD MURRELL LAUREN B [facility] Sukhdeep Digital Screen [facility] Patient Name: HEAVEN MAGUIRE Mammography ACCESSION EXAM DATE/TIME PROCEDURE ORDERING PROVIDER [id number] 08/01/2022 14:07 EDT MG Breast Tomosynthesis DO WIGGINS EUGENE F. BI Scr CPT code 80233 51450 Reason For Exam (MG Breast Tomosynthesis BI [...] MG breast tomosynthesis bl scr performed at [facility]. February 04, 2019, bilateral MG breast tomosynthesis bl scr performed at [facility]. November 10, 2015, bilateral screening mammogram performed at [facility]. TISSUE DENSITY: BIRADS B - There are [...] = Nipples; skin lesions Mammography Report Open sokaogon = Palpable Line = Scar 2D digital [...] pm Signed by: MD HANDY, ANCELMO Ceja [facility] Ancelmo Murrell MD - 08/01/2022 Patient Name: HEAVEN POWER Mammography ACCESSION EXAM DATE/TIME PROCEDURE ORDERING PROVIDER [id number] 08/01/2022 14:07 EDT MG Breast Tomosynthesis DO WIGGINS EUGENE F. BI Scr CPT code 79037 92659 Reason For Exam (MG Breast Tomosynthesis BI [...] MG breast tomosynthesis bl scr performed at [facility]. February 04, 2019, bilateral MG breast tomosynthesis bl scr performed at [facility]. November 10, 2015, bilateral screening mammogram performed at [facility]. TISSUE DENSITY: BIRADS B - There are [...] = Nipples; skin lesions Mammography Report Open sokaogon = Palpable Line = Scar 2D digital [...] Time: 08/01/2022 2:28 pm Signed by: MD MURRELL LAUREN B [facility] Work Phone: Radiology Study [facility]narrative) [facility] Work [facility]: [place] Sukhdeep Digital Screen Bila teralOrdered By: Ancelmo Murrell on 08-01-2022 [facility] Work Phone: CR Chest Portableon 01-08-20 22 CR Chest Portable Patient Name: HEAVEN POWER Diagnostic Radiology ACCESSION EXAM DATE/TIME PROCEDURE ORDERING PROVIDER [id number] 01/07/2022 13:34 EDT CR Chest Portable [id number] -KAMILLA FLOWERS CPT code 60925 Reason For Exam (CR Chest Portable) shortness [...] Report Dictated on Final Dictating Physician: MD VO ANTHONY J Signed Date and Time: 01/07/2022 1:46 pm Signed by: MD VO ANTHONY J Transcribed Date and Time: 01/07/2022 1:47 Normal [facility] ED Provider Noteon ED Provider Note [facility] ED EMERGENCY DEPARTMENT ENCOUNTER Pt Name: Heaven [...] patient come from an ECF, SNF, Rehab, Prison or other Congregate setting: no (If yes [...] rash. Neurological: Negative for light-headedness and headaches. Psychiatric/Behavioral : Negative for suicidal ideas. PAST MEDICAL HISTORY [...] per Dr. Kwan ? History of depression 1994 resolved ? Hyperlipidemia ? Migraines 2009 ? Papanicolaou smear 12/2020 [facility], Dr. Wiggins ? Smoker VAP SURGICAL HISTORY [...] Vaping some. Rare ETOH. 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 Social Determinants of Health Financial Resource Strain: [...] and Family: Not on file ? Attends Synagogue Services: Not on file ? Active Member of Clubs or Organizations: Not on file ? Attends Club or Organization Meetings: Not on file ? Marital Status: Not on file Intimate Partner Violence: ? Fe (more content not included)... Normal [facility] XR CHEST PORTABLEon 01-08-20 Patient Name: HEAVEN POWER Diagnostic Radiology ACCESSION EXAM DATE/TIME PROCEDURE ORDERING PROVIDER [id number] 01/07/2022 13:34 EDT CR Chest Portable KAMILLA PALOMARES CPT code 69126 Reason For Exam (CR Chest Portable) shortness [...] on --- Final --- Dictating Physician: MD VO ANTHONY J Signed Date and Time: 01/07/2022 1:46 pm Signed by: MD VO ANTHONY J Transcribed Date and Time: 01/07/2022 1:47 [facility] Dillon Vo MD - 01/07/2022 Patient Name: HEAVEN POWER Diagnostic Radiology ACCESSION EXAM DATE/TIME PROCEDURE ORDERING PROVIDER [id number] 01/07/2022 13:34 EDT CR Chest Portable [id number] -LIONEL KAMILLA CPT code 64110 Reason For Exam (CR Chest Portable) shortness [...] on --- Final --- Dictating Physician: MD VO ANTHONY J Signed Date and Time: 01/07/2022 1:46 pm Signed by: MD XIOMY, DILLON Draper Transcribed Date and Time: 01/07/2022 1:47 [facility] Work Phone: Radiology Study observation (narrative) [facility] Work Phone: XR CHEST PORTABLEOrdered By: Dillon Vo on 01-07-2022 [facility] Work Phone: CR Spine Cervical 4+ Viewson 11-17-2021 CR Spine Cervical 4+ Views Patient Name: HEAVEN POWER Diagnostic Radiology ACCESSION EXAM DATE/TIME PROCEDURE ORDERING PROVIDER [id number] 11/17/2021 14:34 EST CR Spine Cervical 4+ DO WIGGINS EUGENE F. Views CPT code 66605 Reason For Exam (CR Spine Cervical 4+ [...] Report Dictated on Final Dictating Physician: MD CARRINGTON KRIKOR Signed Date and Time: 11/17/2021 9:42 pm Signed by: MD CARRINGTON KRIKOR Transcribed Date and Time: 11/17/2021 9:43 Normal [facility] CR Spine Lumbosacral 4+ View son 11-17-2021 CR Spine Lumbosacral 4+ Views Patient Name: HEAVEN POWER Diagnostic Radiology ACCESSION EXAM DATE/TIME PROCEDURE ORDERING PROVIDER [id number] 11/17/2021 14:34 EST CR Spine Lumbosacral 4+ DEVORAH DO, TOM F. Views CPT code 60648 Reason For Exam (CR Spine Lumbosacral 4+ Views) LBP Report COMPLETE LUMBAR SPINE History: Low back pain Findings: Frontal, lateral, bilateral oblique, and spot lateral views show degenerative spine changes. There is hypertrophic/sclerotic facet joint arthropathy at L5-S1. The remaining lumbar vertebral bodies, disc spaces, and vertebral alignment are otherwise unremarkable. There are aortic atherosclerotic calcifications. IMPRESSION: Spondylosis as described. Report Dictated on Final Dictating Physician: MD LINK AHMAD Signed Date and Time: 11/17/2021 4:26 pm Signed by: MD LINK AHMAD Transcribed Date and Time: 11/17/2021 4:27 [facility] XR CERVICAL SPINE (4-5 VIEWS )on 11-17-2021 Patient Name: HEAVEN POWER Diagnostic Radiology ACCESSION EXAM DATE/TIME PROCEDURE ORDERING PROVIDER [id number] 11/17/2021 14:34 EST CR Spine Cervical 4+ DO WIGGINS EUGENE F. Views CPT code 48988 Reason For Exam (CR Spine Cervical 4+ [...] on --- Final --- Dictating Physician: MD CARRINGTON KRIKOR Signed Date and Time: 11/17/2021 9:42 pm Signed by: MD CARRINGTON KRIKOR Transcribed Date and Time: 11/17/2021 9:43 [facility] Sheri Carrington MD - 11/17/2021 Patient Name: HEAVEN POWER Diagnostic Radiology ACCESSION EXAM DATE/TIME PROCEDURE ORDERING PROVIDER [id number] 11/17/2021 14:34 EST CR Spine Cervical 4+ PETRILLA, DO, TOM F. Views CPT code 75002 Reason For Exam (CR Spine Cervical 4+ [...] on --- Final --- Dictating Physician: MD CARRINGTON KRIKOR Signed Date and Time: 11/17/2021 9:42 pm Signed by: MD CARRINGTON KRIKOR Transcribed Date and Time: 11/17/2021 9:43 [facility] Work Phone: Radiology Study observation (narrative) [facility] Work Phone: XR CERVICAL SPINE (4-5 VIEWS )Ordered By: Sheri Carrington on 11-17-2021 [facility] Work Phone: XR LUMBAR SPINE (MIN 4 VIEWS )on 11-17-2021 Patient Name: HEAVEN POWER Diagnostic Radiology ACCESSION EXAM DATE/TIME PROCEDURE ORDERING PROVIDER [id number] 11/17/2021 14:34 EST CR Spine Lumbosacral 4+ NAOMIA, DO, TOM F. Views CPT code 39669 Reason For Exam (CR Spine Lumbosacral 4+ Views) LBP Report COMPLETE LUMBAR SPINE History: Low back pain Findings: Frontal, lateral, bilateral oblique, and spot lateral views show degenerative spine changes. There is hypertrophic/sclerotic facet joint arthropathy at L5-S1. The remaining lumbar vertebral bodies, disc spaces, and vertebral alignment are otherwise unremarkable. There are aortic atherosclerotic calcifications. IMPRESSION: Spondylosis as described. Report Dictated on --- Final --- Dictating Physician: MD LINK AHMAD Signed Date and Time: 11/17/2021 4:26 pm Signed by: MD LINK AHMAD Transcribed Date and Time: 11/17/2021 4:27 [facility] Adelita Link MD - 11/17/2021 Patient Name: HEAVEN POWER Diagnostic Radiology ACCESSION EXAM DATE/TIME PROCEDURE ORDERING PROVIDER [id number] 11/17/2021 14:34 EST CR Spine Lumbosacral 4+ DO DEVORAH, TOM F. Views CPT code 82832 Reason For Exam (CR Spine Lumbosacral 4+ Views) LBP Report COMPLETE LUMBAR SPINE History: Low back pain Findings: Frontal, lateral, bilateral oblique, and spot lateral views show degenerative spine changes. There is hypertrophic/sclerotic facet joint arthropathy at L5-S1. The remaining lumbar vertebral bodies, disc spaces, and vertebral alignment are otherwise unremarkable. There are aortic atherosclerotic calcifications. IMPRESSION: Spondylosis as described. Report Dictated on --- Final --- Dictating Physician: MD LINK AHMAD Signed Date and Time: 11/17/2021 4:26 pm Signed by: MD LINK AHMAD Transcribed Date and Time: 11/17/2021 4:27 [facility] Work Phone: Radiology Study observation (narrative) [facility] Work Phone: XR LUMBAR SPINE (MIN 4 VIEWS )Ordered By: Adelita Link on 11-17-2021 [facility] Work Phone: CT Abdomen and Pelvis W cont rast IVOrdered By: Wes Monteiro on 02-22-2021 Patient Name: HEAVEN POWER Computed Tomography ACCESSION EXAM DATE/TIME PROCEDURE ORDERING PROVIDER [id number] 02/22/2021 23:[address] Abdomen/Pelvis w/ IV KAYLA MONTEIRO DANIEL M Contrast (IV Onl CPT code 33024 Q9967 Reason For Exam (CT Abdomen/Pelvis w/ [...] hydronephrosis. No focal lesion. Free fluid: None. Retroperitoneal/mesent hanna lymphadenopathy: None. Aorta: Normal caliber with atherosclerotic calcification. Bowel: Normal caliber. Normal appendix identified Abdominal wall: Normal. Pelvic organs/viscera: No mass identified. Computed Tomography Report Pelvic lymphadenopathy: None. Osseous structures: Normal. IMPRESSION: No acute abnormality throughout the abdomen and pelvis. Horseshoe configuration of the kidneys. Report Dictated on Workstation: [facility] --- Final --- Dictating Physician: MD PURVIS JEFFREY Signed Date and Time: 02/22/2021 11:11 pm Signed by: MD PURVIS JEFFREY Transcribed Date and Time: 02/22/2021 11:12 [facility] Work Phone: Aram, [facility] Incoming Radiology Results From [facility] - 02/22/2021 11:12 PM EDT [facility]: [id number] Computed Tomography ACCESSION EXAM DATE/TIME PROCEDURE ORDERING PROVIDER [id number] 02/22/2021 23:[address] Abdomen/Pelvis w/ IV KAYLA MONTEIRO DANIEL M Contrast (IV Onl CPT code 50582 Q9967 Reason For Exam (CT Abdomen/Pelvis w/ [...] hydronephrosis. No focal lesion. Free fluid: None. Retroperitoneal/mesent hanna lymphadenopathy: None. Aorta: Normal caliber with atherosclerotic calcification. Bowel: Normal caliber. Normal appendix identified Abdominal wall: Normal. Pelvic organs/viscera: No mass identified. Computed Tomography Report Pelvic lymphadenopathy: None. Osseous structures: Normal. IMPRESSION: No acute abnormality throughout the abdomen and pelvis. Horseshoe configuration of the kidneys. Report Dictated on Workstation: [facility] --- Final --- Dictating Physician: MD PURVIS JEFFREY Signed Date and Time: 02/22/2021 11:11 pm Signed by: MD PURVIS JEFFREY Transcribed Date and Time: 02/22/2021 11:12 [facility] Work Phone: Comprehensive Metabolic Pane lOrdered By: Wes Monteiro on 02-22-2021 Albumin [Mass/Vol] 4.3 g/dL 3.5 - 5.0 g/dL [facility] Work Phone: ALP (Bld) [Catalytic activity/Vol] 92 U/L 38 - 126 U/L [facility] Work Phone: ALT [Catalytic activity/Vol] 12 U/L 0 - 34 U/L [facility] Work Phone: [phone] Comment on above: The ALT test is perf ormed by an updated assay method. Please note that the reference intervals have been changed and are now sex specific. Anion gap [Moles/Vol] 6 mmol/L 3 - 13 mmol/L [employer] Work Phone: [phone] AST [Catalytic activity/Vol] 25 U/L 15 - 46 U/L [facility] Work Phone: [phone] Bilirubin [Mass/Vol] 0.4 mg/dL 0.2 - 1 .3 mg/dL [facility] Work Phone: [phone] Calcium [Mass/Vol] 9.6 mg/dL 8.4 - 10. 4 mg/dL [facility] [facility] Work Phone: [phone] Chloride [Moles/Vol] 106 mmol/L 98 - 10 7 mmol/L [facility] Work Phone: [phone] CO2 [Moles/Vol] 27 mmol/L 22 - 30 mmol/L [facility] Work Phone: [phone] Creatinine [Mass/Vol] 0.8 mg/dL 0.52 - 1.25 mg/dL [facility] Work Phone: [phone] EGFR IF NonAfrican Kazakh 86.2 mL/min >60 [facility] Work Phone: Comment on above: KDIGO guidelines [...] fraction] 7.2 g/dL 6.3 - 8.2 g/dL [facility] Work Phone: GFR/1.73 sq M.predicted among blacks MDRD (S/P/Bld) [Vol rate/Area] mL/min/{1.73_m2} >60 mL/min [facility] Work Phone: [phone] Glucose [Mass/Vol] 99 mg/dL 70 - 100 mg/dL [facility] Work Phone: [phone] Potassium [Moles/Vol] 3.6 mmol/L 3.5 - 5.1 mmol/L [facility] Work Phone: [phone] Sodium [Moles/Vol] 139 mmol/L 135 - 145 mmol/L [facility] Work Phone: [phone] Urea nitrogen (BldV) [Mass/Vol] 17 mg/dL 7 - 20 mg/dL [facility] Work Phone: [phone] LipaseOrdered By: Wes barrientos on 02-22-2021 Lipase [Catalytic activity/Vol] 192 U/L 23 - 300 U/L [facility] Work Phone: [phone] No Panel InformationOrdered By: Wes Monteiro on 02-22-2021 Test Performed by [facility], [address] [place], [place] [id number] [place] [address] Work Phone: [phone] Troponin [id number] By: Ruben Monteiro on 02-22-2021 Troponin I.cardiac [Mass/Vol] ng/mL 0.000 - 0.034 ng/mL [facility] Work Phone: [phone] Comment on above: . Test Performed by [facility], [address], [place] [id number] [place] [address] Work Phone: US ABDOMEN LIMITED Specify o rgan? GALLBLADDEROrdered By: Tom Wiggins on 02-22-2021 Patient Name: HEAVEN MAGUIRE Ultrasound ACCESSION EXAM DATE/TIME PROCEDURE ORDERING PROVIDER [id number] 02/22/2021 15:28 EDT US Abdomen Limited DO WIGGINS EUGENE F. CPT code 60384 Reason For Exam (US Abdomen Limited) ruq [...] and Time: 02/22/2021 3:31 [facility] Work Phone: [facility], [facility] Incoming [facility] Results From [facility] - 02/22/2021 3:31 PM EDT Patient Name: HEAVEN POWER Ultrasound ACCESSION EXAM DATE/TIME PROCEDURE ORDERING PROVIDER [id number] 02/22/2021 15:28 EDT US Abdomen Limited DO WIGGINS EUGENE FLeonor CPT code 56008 Reason For Exam (US Abdomen Limited) ruq [...] adenomyomatosis and sludge. Report Dictated on Workstation: [employer] --- Final --- Dictating Physician: MD BIANCHI MALAY Signed Date and Time: 02/22/2021 3:30 pm Signed by: MD BIANCHI MALAY Transcribed Date and Time: 02/22/2021 3:31 [facility] Work Phone: XR CHEST (2 VW)on 10-08-2020 Patient Name: HEAVEN POWER Diagnostic Radiology ACCESSION EXAM DATE/TIME PROCEDURE ORDERING PROVIDER [id number] 10/08/2020 09:49 EST CR Chest PA & LAT DEVORAH TOM BRICEÑO. CPT code 79096 Reason For Exam (CR Chest PA & [...] acute cardiopulmonary process. Report Dictated on Workstation: [employer] --- Final --- Dictating Physician: MD CARRINGTON KRIKOR Signed Date and Time: 10/08/2020 10:10 am Signed by: MD CARRINGTON KRIKOR Transcribed Date and Time: 10/08/2020 10:12 [facility], [facility], [facility] Incoming Radiology Results From [facility] - 10/08/2020 10:12 AM EST Patient Name: HEAVEN POWER Diagnostic Radiology ACCESSION EXAM DATE/TIME PROCEDURE ORDERING PROVIDER [id number] 10/08/2020 09:49 EST CR Chest PA & LAT DO DEVORAH TOM Genao. CPT code 99123 Reason For Exam (CR Chest PA & [...] acute cardiopulmonary process. Report Dictated on Workstation: [id number] --- Final --- Dictating Physician: MD CARRINGTON KRIKOR Signed Date and Time: 10/08/2020 10:10 am Signed by: MD CARRINGTON KRIKOR Transcribed Date and Time: 10/08/2020 10:12 [place], [place] Vital Signs Date Time Vital Sign Value Performing Clinician Facility 04-30-2025 14:53-0400 Body temperature 97.4 [degF] Dr. Hanna Regalado DO Work Phone: 6(887)[phone] [place] [address] 04-30-2025 14:53-0400 Diastolic blood pressure 79 mm[Hg] Dr. Hanna Regalado DO Work Phone: 1(778)023-896104 [place] [address] 04-30-2025 14:53-0400 Heart rate 64 /min Dr. Hanna Regalado DO Work Phone: 0(294)921-529804 [place] [address] 04-30-2025 14:53-0400 Respiratory rate 16 /min Dr. Hanna Regalado DO Work Phone: 9(448)376-524204 [place] [address] 04-30-2025 14:53-0400 SaO2% (BldA) [Mass fraction] 99 % Dr. Hanna Regalado DO Work Phone: 2(420)463-627704 [place] [address] 04-30-2025 14:53-0400 Systolic blood pressure 122 mm[Hg] Dr. Hanna Regalado DO Work Phone: 7(834)397-186204 [place] [address] 04-30-2025 13:03-0400 Body height 160.[address] Hanna Regalado DO Work Phone: 1(984)443-143204 [place] [address] 04-30-2025 13:03-0400 Body mass index (BMI) [Ratio] 29.7 kg/m2 Dr. Hanna Regalado DO Work Phone: 8(839)665-277204 [place] [address] 04-30-2025 13:03-0400 Body weight [address] Hanna Regalado DO Work Phone: 0(124)365-842004 [place] [address] 04-15-2025 13:40-0400 Body height 160.[address] Hanna Regalado DO Work Phone: 5(608)810-313704 [place] [address] 04-15-2025 13:40-0400 Body mass index (BMI) [Ratio] 29.9 kg/m2 Dr. Hanna Regalado DO Work Phone: 0(335)757-821872 [place] [address] 04-15-2025 13:40-0400 Body temperature 97.2 [degF] Dr. Hanna Regalado DO Work Phone: 4(251)201-459372 [place] [address] 04-15-2025 13:40-0400 Body weight 76.[address] Hanna Regalado DO Work Phone: 3(520)197-222372 [place] [address] 04-15-2025 13:40-0400 Diastolic blood pressure 91 mm[Hg] Dr. Hanna Regalado DO Work Phone: 1(117)146-036772 [place] [address] 04-15-2025 13:40-0400 Heart rate 100 /min Dr. Hanna Regalado DO Work Phone: 7(961)995-501904 [place] [address] 04-15-2025 13:40-0400 Respiratory rate 18 /min Dr. Hanna Regalado DO Work Phone: 1(769)694-978704 [place] [address] 04-15-2025 13:40-0400 SaO2% (BldA) [Mass fraction] 97 % Dr. Hanna Regalado DO Work Phone: 8(405)728-333072 [place] [address] 04-15-2025 13:40-0400 Systolic blood pressure 139 mm[Hg] Dr. Hanna Regalado DO Work Phone: 8(379)404-[address] [place] [address] 04-13-2025 15:33-0400 Body temperature 98.3 [degF] Dr. Hanna Regalado DO Work Phone: 0(054)390-319472 [place] [address] 04-13-2025 15:33-0400 Diastolic blood pressure 88 mm[Hg] Dr. Hanna Regalado DO Work Phone: 4(048)221-090772 [place] [address] 04-13-2025 15:33-0400 Heart rate 86 /min Dr. Hanna Regalado DO Work Phone: 7(608)266-071672 [place] [address] 04-13-2025 15:33-0400 Respiratory rate 12 /min Dr. Hanna Regalado DO Work Phone: 6(824)623-261272 [place] [address] 04-13-2025 15:33-0400 SaO2% (BldA) [Mass fraction] 98 % Dr. Hanna Regalado DO Work Phone: [facility] 04-13-2025 15:33-0400 Systolic blood pressure 141 mm[Hg] Dr. Hanna Regalado DO Work Phone: [facility] 04-13-2025 12:43-0400 Body height 160.[address] Hanna Regalado DO Work Phone: 4(383)513-870872 [place] [address] 04-13-2025 12:43-0400 Body mass index (BMI) [Ratio] 29.7 kg/m2 Dr. Hanna Regalado DO Work Phone: 5(495)625-029472 [place] [address] 04-13-2025 12:43-0400 Body weight 76.[address] Hanna Regalado DO Work Phone: 6(991)288-030272 [place] [address] 03-07-2025 16:23-0400 Body temperature 98.2 [degF] Dr. Hanna Regalado DO Work Phone: 8(453)239-551472 [place] [address] 03-07-2025 16:23-0400 Diastolic blood pressure 76 mm[Hg] Dr. Hanna Regalado DO Work Phone: 2(073)836-270772 [place] [address] 03-07-2025 16:23-0400 Heart rate 72 /min Dr. Hanna Regalado DO Work Phone: 6(545)273-081672 [place] [address] 03-07-2025 16:23-0400 Respiratory rate 16 /min Dr. Hanna Regalado DO Work Phone: 8(552)508-970972 [place] [address] 03-07-2025 16:23-0400 SaO2% (BldA) [Mass fraction] 100 % Dr. Hanna Regalado DO Work Phone: 8(768)586-607972 [place] [address] 03-07-2025 16:23-0400 Systolic blood pressure 146 mm[Hg] Dr. Hanna Regalado DO Work Phone: [facility] 03-07-2025 15:27-0400 Body height 160.[address] Hanna Regalado DO Work Phone: 8(269)506-187372 [place] [address] 03-07-2025 15:27-0400 Body mass index (BMI) [Ratio] 30.4 kg/m2 Dr. Hanna Regalado DO Work Phone: [facility] 03-07-2025 15:27-0400 Body weight 78.[address] Hanna Regalado DO Work Phone: [facility] 08-11-2022 01:12-0400 Diastolic blood pressure 70 mm[Hg] Lizett Mars MD Work Phone: [facility] 08-11-2022 01:12-0400 Heart rate 95 /min Lizett Mars MD Work Phone: [facility] 08-11-2022 01:12-0400 Respiratory rate 14 /min Lizett Mars MD Work Phone: [facility] 08-11-2022 01:12-0400 Systolic blood pressure 107 mm[Hg] Lizett Mars MD Work Phone: [facility] 08-10-2022 23:22-0400 Body temperature 99.5 [degF] Lizett Mars MD Work Phone: [facility] 08-10-2022 23:22-0400 SaO2% (BldA) [Mass fraction] 97 % Lizett Mars MD Work Phone: [facility] 08-10-2022 21:39-0400 Body height 160 cm Lizett Mars MD Work Phone: [facility] 08-10-2022 21:39-0400 Body mass index (BMI) [Ratio] 26.75 kg/m2 Lizett Mars MD Work Phone: [facility] 08-10-2022 21:39-0400 Body weight 68.49 kg Lizett Mars MD Work Phone: [facility] 01-07-2022 13:09-0400 Heart rate 107 /min Kamilla Flowers DO Work Phone: [facility] 01-07-2022 13:09-0400 SaO2% (BldA) [Mass fraction] 99 % Kamilla Flowers DO Work Phone: [facility] 01-07-2022 13:08-0400 Body temperature 97.81 [degF] Kamilla Lionel DO Work Phone: [employer] 01-07-2022 13:08-0400 Diastolic blood pressure 91 mm[Hg] Kamilla Lionel DO Work Phone: [facility] 01-07-2022 13:08-0400 Respiratory rate 18 /min Kamilla Lionel DO Work Phone: [facility] 01-07-2022 13:08-0400 Systolic blood pressure 158 mm[Hg] Kamilla Lionel DO Work Phone: [facility] 03-02-2021 15:00-0400 Diastolic blood pressure 69 mm[Hg] Aiden Farrell MD Work Phone: [employer] Work Phone: 03-02-2021 15:00-0400 Heart rate 73 /min Aiden Farrell MD Work Phone: [employer] Work Phone: 03-02-2021 15:00-0400 Respiratory rate 21 /min Aiden Farrell MD Work Phone: [facility] Work Phone: 03-02-2021 15:00-0400 SaO2% (BldA) [Mass fraction] 99 % Aiden Farrell MD Work Phone: [facility] Work Phone: 03-02-2021 15:00-0400 Systolic blood pressure 129 mm[Hg] Aiden Farrell MD Work Phone: [facility] Work Phone: 03-02-2021 13:52-0400 Body temperature 97 [degF] Aiden Farrell MD Work Phone: [facility] Work Phone: 03-02-2021 12:18-0400 Body height 160 cm [facility] MD [facility] Work Phone: 03-02-2021 12:18-0400 Body mass index (BMI) [Ratio] 28.17 kg/m2 Aiden Farrell MD Work Phone: [facility] Work Phone: 03-02-2021 12:18-0400 Body weight 72.12 kg Aiden Farrell MD Work Phone: [facility] Work Phone: 02-26-2021 12:17-0400 Body height 160 cm Aiden Farrell MD Work Phone: [facility] Work Phone: 02-26-2021 12:17-0400 Body mass index (BMI) [Ratio] 28.56 kg/m2 Aiden Farrell MD Work Phone: [facility] Work Phone: 02-26-2021 12:17-0400 Body weight 73.12 kg Aiden Farrell MD Work Phone: [facility] Work Phone: 02-26-2021 12:17-0400 Diastolic blood pressure 80 mm[Hg] Aiden Farrell MD Work Phone: [facility] Work Phone: 02-26-2021 12:17-0400 Systolic blood pressure 144 mm[Hg] Aiden Farrell MD Work Phone: [facility] Work Phone: 02-26-2021 11:54-0400 Body temperature 97.7 [degF] Aiden Farrell MD Work Phone: [facility] Work Phone: 02-26-2021 11:54-0400 Heart rate 83 /min Aiden Farrell MD Work Phone: [facility] Work Phone: 02-26-2021 11:54-0400 Respiratory rate 18 /min Aiden Farrell MD Work Phone: [facility] Work Phone: 02-26-2021 11:54-0400 SaO2% (BldA) [Mass fraction] 97 % Aiden Farrell MD Work Phone: [facility] Work Phone: 02-22-2021 23:06-0400 Diastolic blood pressure 79 mm[Hg] Tom Salgadoa DO Work Phone: [facility] Work Phone: 02-22-2021 23:06-0400 Heart rate 68 /min Tom Stahllla DO Work Phone: [facility] Work Phone: 02-22-2021 23:06-0400 SaO2% (BldA) [Mass fraction] 99 % Tom Salgadoa DO Work Phone: [facility] Work Phone: 02-22-2021 23:06-0400 Systolic blood pressure 97 mm[Hg] Tom Salgadoa DO Work Phone: [facility] Work Phone: 02-22-2021 21:44-0400 Body temperature 98.2 [degF] Tom Stahllla DO Work Phone: [facility] Work Phone: 02-22-2021 21:44-0400 Respiratory rate 16 /min Tom Salgadoa DO Work Phone: [facility] Work Phone: Encounters Encounter Date Encounter Type Care Provider Facility Start: 05-14-2025 End: 05-14-2025 ambulatory No Primary Care Physician Facility:[facility] Start: 05-14-2025 End: 05-14-2025 Patient encounter procedure Jihan FOOTE -[facility] Work Phone: Start: 04-30-2025 Non-patient / Non-visit Eder Paniagua DO -[facility] Start: 04-30-2025 End: 04-30-2025 Admission to same day surgery center Eder Paniagua DO -Endoscopy Work Phone: Start: 04-30-2025 End: 04-30-[address] Hanna Regalado DO Work Phone: -Endoscopy Start: 04-22-2025 End: 04-22-2025 Patient encounter procedure Jihan Maxwellreta FOOTE -[facility] Work Phone: Start: 04-22-2025 End: 04-22-[address] Hanna Regalado DO Work Phone: -[facility] Start: 04-15-2025 End: 04-15-2025 Emergency department patient visit Dr. Hanna Regalado DO Work Phone: -Emergency Department Work Phone: Start: 04-13-2025 End: 04-13-2025 Emergency department patient visit Dr. Hanna Regalado DO Work Phone: -Emergency Department Work Phone: Start: 03-07-2025 End: 03-07-2025 Emergency department patient visit Dr. Hanna Regalado DO Work Phone: -Emergency Department Work Phone: Start: 08-01-2023 End: 08-01-2023 ambulatory [facility] Facility:[facility] Start: 07-31-2023 ambulatory [facility] Facility:[facility] Start: 07-24-2023 Transcribe Orders Julieta Contreras MD Work Phone: [facility] Central Scheduling Start: 08-10-2022 End: 08-11-2022 Emergency department patient visit UNKNOWN PROVIDER [facility] Start: 08-10-2022 End: 08-11-2022 Emergency department patient visit Lizett Mars MD Work Phone: [facility] [place] Comment on above: Acute UTI (Primary D x); Lower abdominal pain Start: 08-01-2022 ambulatory UNKNOWN PROVIDER [facility] Start: 08-01-2022 End: 08-01-2022 Subsequent hospital visit by physician Tom Wiggins DO Work Phone: [facility] Comment on above: Arrived Start: 01-27-2022 End: 01-27-2022 Emergency department patient visit UNKNOWN PROVIDER [facility] Start: 01-07-2022 End: 01-07-2022 Emergency department patient visit Kamilla Flowers DO Work Phone: [facility] Comment on above: COVID-19 (Primary Dx ) Start: 11-17-2021 ambulatory Tom Wiggins [facility] Start: 11-17-2021 End: 11-17-2021 Subsequent hospital visit by physician Tom Wiggins DO Work Phone: [facility] Radiology Comment on above: Neck pain; Lumbar pain Start: 03-02-2021 End: 03-02-2021 Subsequent hospital visit by physician Aiden Farrell MD Work Phone: [facility] General Surgery Comment on above: Gallbladder sludge ( Primary Dx); Biliary colic Start: 02-26-2021 End: 02-26-2021 Subsequent hospital visit by physician Aiden Farrell MD Work Phone: [facility] Pre-Admit Testing Comment on above: Arrived Start: 02-22-2021 End: 02-22-2021 Emergency department patient visit Tom Stahlcandelariafito Work Phone: [facility] Comment on above: Right upper quadrant abdominal pain (Primary Dx); Gallbladder sludge; Adenomyomatosis of gallbladder Start: 02-22-2021 End: 02-22-2021 Subsequent hospital visit by physician Tom Wiggins DO Work Phone: [facility] [place] Comment on above: RUQ abdominal pain Start: 10-08-2020 End: 10-08-2020 Subsequent hospital visit by physician Tom Wiggins Work Phone: [facility] [place] Radiology Procedures Date Procedure Procedure Detail Performing Clinician Start: 04-30-[address] Hanna Regalado DO Work Phone: Start: 04-13-[address] Hanna Regalado DO Work Phone: Start: 08-11-2022 Computed tomography of abdomen and pelvis with contrast Lizett Mars MD Work Phone: Start: 08-10-2022 COVID-19, FLU A/B, AND RSV COMBO Lizett Mars MD Work Phone: Start: 08-10-2022 Urnls dip stick/tablet rgnt auto w/o microscopy Lizett Mars MD Work Phone: Start: 08-10-2022 Basic metabolic panel calcium total Lizett Mars MD Work Phone: Start: 08-01-2022 End: 08-01-2022 Screening digital breast tomosynthesis bi Tom Wiggins DO Work Phone: Start: 01-07-2022 Radiologic exam chest single view Kamilla Lionel DO Work Phone: Start: 12-29-2021 Colonoscopy Kamilla Lionel DO Work Phone: Start: 11-17-2021 Radex spine cervical 4 or 5 views Tom Wiggins DO Work Phone: Start: 03-17-2021 End: 11-17-2021 History of cholecystectomy S/P laparoscopic cholecystectomy Tom Wiggins DO Work Phone: Start: 03-02-2021 OPERATIVE REPORT 3m Scanning Start: 02-22-2021 Computed tomography of abdomen and pelvis with contrast Wes Monteiro [employer] 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 Hanna Regalado DO Work Phone: History of cholecystectomy Hx of cholecystectomy Jihan FOOTE Plan of Treatment Date Care Activity Detail Author Start: 12-30-2031 Screening for malign ant neoplasm of colon [facility] Start: 2031 RSV Immunization age d 60 or older (1 - 1-dose 60+ series) RSV Immunization aged 60 or older (1 - 1-dose 60+ series) [facility] Start: 07-15-2027 DTaP/Tdap/Td vaccine (2 - Td or Tdap) DTaP/Tdap/Td vaccine (2 - Td or Tdap) [facility] Start: 07-15-2027 DTaP/Tdap/Td vaccine (2 - Td) DTaP/Tdap/Td vaccine (2 - Td) [place] Start: 07-15-2027 DTaP/Tdap/Td Vaccine s (2 - Td or Tdap) DTaP/Tdap/Td Vaccines (2 - Td or Tdap) [facility] Start: 04-30-2025 Colonoscopy w/biopsy single/multiple COLONOSCOPY AND BIOPSY [facility] Start: 04-30-2025 Patient discharge [facility] Start: 04-15-2025 Triacylglycerol lipa se measurement [facility] Start: 04-13-2025 End: 04-13-2025 [facility] Start: 03-07-2025 [facility] Start: 01-06-2024 Screening for malign ant neoplasm [facility] cervix [facility] Start: 01-05-2024 Lipid panel [facility] Start: 08-01-2023 Screening for malign ant neoplasm of breast [facility] Start: 06-23-2023 COVID-19 Vaccine () COVID-19 Vaccine ( season) [facility] Start: 06-23-2023 Depression Screen Depression Screen [facility] Start: 06-23-2023 Influenza vaccination Influenza Vacc ine (#1) [facility] Start: 05-23-2022 Influenza vaccination Flu vaccine (# 1) [facility] Start: 03-01-2022 COVID-19 Vaccine (4 - Booster for Moderna series) COVID-19 Vaccine (4 - Booster for Moderna series) [facility] Start: 01-04-2022 Depression Screen Depression Screen [facility] Start: 12-18-2021 Screening for malign ant neoplasm of breast Breast cancer screen [facility] Start: 2021 Screening for malign ant neoplasm of lung Low dose CT lung screening [facility] Start: 2021 Shingles Vaccine (1 of 2) Reyes gles Vaccine (1 of 2) [facility] Start: 2021 Zoster Vaccines (1 of 2) Zoste r Vaccines (1 of 2) [facility] Start: 06-23-2021 Influenza vaccination Flu vacc ine (Season Ended) [facility] Work Phone: Start: 03-02-2021 End: 03-02-2021 Patient encounter procedure 03/02/2021 Appointment General Surgery Aiden Farrell MD [address] [place] [address], [address] [place], [place] [id number] [facility] General Surgery Start: 09-30-2020 Screening for malign ant neoplasm of cervix [facility] Start: 06-23-2020 Influenza vaccination Flu vaccine (# 1) [place] Start: 2016 Screening for malign ant neoplasm of colon [facility] Start: 2006 Diabetes screen Diabetes screen [facility] Start: 2001 Screening for malign ant neoplasm of cervix HPV/Cotest [facility] Start: 1989 Diabetes mellitus screening Diabetes Screening [facility] Start: 1989 Hepatitis C screening [facility] Start: 1987 COVID-19 Vaccine (1) COVID-19 Vaccin e (1) [facility] Work Phone: Start: 1986 HIV screening HIV screen [facility] Start: 1983 COVID-19 Vaccine (1) COVID-19 Vaccin e (1) [facility] Work Phone: Start: 1983 Depression Screen Depression Screen [facility] Start: 1983 Depression Screening Depression Scre ening [facility] Start: 1977 Pneumococcal 0-64 ye ars Vaccine (1 - PCV) Pneumococcal 0-64 years Vaccine (1 - PCV) [facility] Start: 1977 Pneumococcal 0-64 ye ars Vaccine (1 of 1 - PPSV23) Pneumococcal 0-64 years Vaccine (1 of 1 - PPSV23) [place] Start: 1977 Pneumococcal 0-64 ye ars Vaccine (1 of 2 - PPSV23) Pneumococcal 0-64 years Vaccine (1 of 2 - PPSV23) [facility] Start: 1977 Pneumococcal Vaccine : Pediatrics (0 to 5 Years) and At-Risk Patients (6 to 64 Years) (1 of 2 - PCV) Pneumococcal Vaccine: Pediatrics (0 to 5 Years) and At-Risk Patients (6 to 64 Years) (1 of 2 - PCV) [facility] Start: 1972 MMR Vaccines (1 of 1 - Standard series) MMR Vaccines (1 of 1 - Standard series) [facility] Start: 1971 Hepatitis B Vaccines (1 of 3 - 3-dose series) Hepatitis B Vaccines (1 of 3 - 3-dose series) [facility] Start: 1971 Hepatitis C screening Hepatitis C sc reen [facility] Start: 1971 HIV screening HIV Screening [facility] Start: 1971 Screening for malign ant neoplasm of colon [facility] Alanine aminotransfe rase [Enzymatic activity/volume] in Serum or Plasma [facility] Albumin [Mass/volume ] in Serum or Plasma [facility] Alkaline phosphatase [Enzymatic activity/volume] in Serum or Plasma [facility] Anion gap in Serum o r Plasma [facility] Bilirubin, total measurement [facility] BUN/Creatinine ratio [facility] Calcium [Mass/volume ] in Serum or Plasma [facility] Carbon dioxide, tota l [Moles/volume] in Central venous blood [facility] Celiac disease screen [facility] Choriogonadotropin.b eta subunit ( test) [Presence] in Serum or Plasma [facility] Colonoscopy [facility] Creatinine [Mass/vol ume] in Serum or Plasma [facility] End: 08-10-2022 Culture, Blood 2 [facility] Work Phone: Comment on above: One Time for 1 Occur rences starting 08/10/2022 until 08/10/2022 End: 08-10-2022 Culture, Urine [facility] Work Phone: Comment on above: One Time for 1 Occur rences starting 08/10/2022 until 08/10/2022 EKG 12 Lead - Chest Pain EKG 12 Lead - Chest Pain ECG STAT 02/22/2021 10:22 PM [facility] Work Phone: Erythrocyte mean corpuscular volume determination [facility] Glucose [Mass/volume ] in Serum or Plasma [facility] Hematocrit [Volume Fraction] of Blood [facility] Hemoglobin [Mass/vol ume] in Blood [facility] End: 03-02-2021 Intermittent pulse oximetry Pulse Oximetry Spot Check Respiratory Care Routine One Time for 1 Occurrences starting 03/02/2021 until 03/02/2021 [facility] Work Phone: Comment on above: One Time for 1 Occur rences starting 03/02/2021 until 03/02/2021 Leukocytes [#/volume ] in Blood [facility] Mean corpuscular hemoglobin concentration determination [facility] Mean corpuscular hemoglobin determination [facility] Measurement of renal function [facility] End: 08-10-2022 Microscopic examination of blood, culture [facility] Work Phone: Comment on above: One Time for 1 Occur rences starting 08/10/2022 until 08/10/2022 Neutrophil count [facility] Neutrophil percent differential count [facility] Oxygen therapy [[facility] Data Set] Initiate Oxygen Therapy Protocol Respiratory Care Routine Daily until discontinued starting 03/02/2021 [facility] Work Phone: Comment on above: Daily until disconti nued starting 03/02/2021 Patient Education [facility] Work Phone: Patient referral [facility] Work Phone: Phase I & II - meter ed glucose Phase I & II - metered glucose Point of Care Testing Routine As Needed until discontinued starting 03/02/2021 [facility] Work Phone: Comment on above: As Needed until disc ontinued starting 03/02/2021 Platelets [#/volume] in Blood [facility] Potassium measurement [facility] Red blood cell count [facility] Red cell distributio n width determination [facility] Serum chloride measurement [facility] Sodium measurement [facility] Spirometry panel Incentive babak metry Respiratory Care Routine Q1H PRN until discontinued starting 03/02/2021 [facility] Work Phone: Comment on above: Q1H PRN until discon tinued starting 03/02/2021 Total protein measurement [facility] Urea nitrogen [Mass/volume] in Serum or Plasma [facility] End: 08-10-[address] [facility] Work Phone: Comment on above: Once for 1 Occurrenc es starting 08/10/2022 until 08/10/2022 [facility] Immunizations Immunization Date Immunization Notes Care Provider Vickie koroma 11-01-2021 COVID-19, Moderna, Primary or Immunocompromised, PF, 100mcg/0.5mL Tom Maribethlla DO Work Phone: [facility] Work Phone: 11-01-2021 Influenza, injectabl e, [facility] [place] Canine Kidney, preservative free, quadrivalent Tom Maribethlla DO Work Phone: [facility] Work Phone: 11-01-2021 influenza virus vaccine, unspecified formulation Julieta Contreras MD Work Phone: [facility] [employer] 04-15-2021 COVID-19, Moderna, Primary or Immunocompromised, PF, 100mcg/0.5mL Tom Maribethlla DO Work Phone: [facility] 03-18-2021 COVID-19, Moderna, Primary or Immunocompromised, PF, 100mcg/0.5mL Tom Maribethlla DO Work Phone: [facility] Work Phone: 07-15-2017 tetanus toxoid, redu batsheva diphtheria toxoid, and acellular pertussis vaccine, adsorbed Tom Maribethlla [facility] Payers Date Payer Category Payer Private Health Insurance [id number] 2025 Self-pay 2020 Unknown [id number] 2020 Unknown BCBS [place] P PO [id number] 2020-Present [address] [place] [address] [id number] 1971 Unknown [id number] 68 1971 Unknown [id number] 68 1971 Unknown [id number] 68 1971 Unknown [id number] 68 1971 Unknown [id number] 68 Private Health Insurance [id number] Unknown Unknown [id number] 62 Unknown [id number] 62 Unknown [id number] [id number] 62 Unknown [id number] 62 Unknown [id number] [id number] 62 Unknown [id number] 62 Unknown [id number] 62 Social History Date Type Detail Facility Start: 10-08-2020 End: 04-29-2025 Tobacco smoking status NHIS Current every day smoker [facility] History of tobacco use Cigarette Smoker M [place], [place] Start: 10-08-2020 End: 10-11-2022 Cigarettes smoked current (pack per day) - Reported [place], [place] Start: 10-08-2020 End: 12-27-2021 Tobacco use and exposure Never used [place] Start: 10-08-2020 End: 10-11-2022 Alcohol intake Current drinker of alcohol (finding) [place] Start: 09-04-2020 History SDOH Alcohol Frequency 2 [place] Start: 09-04-2020 End: 11-17-2021 History SDOH Alcohol Std Drinks 1 [place] Start: 09-04-2020 End: 11-17-2021 History SDOH Social Connections Phone 5 [place] Start: 09-04-2020 History SDOH Social Connections Living 3 [place] Start: 09-04-2020 History SDOH Physica l Activity DPW 0 [place] Sex Assigned At Not on file [place] Start: 07-31-2022 End: 08-10-2022 Exposure to SARS-CoV-2 (event) Not sure [facility] Start: 1970 Sex Assigned At Female S [facility] Start: 12-27-2021 Tobacco smoking stat us IAIS Occasional tobacco smoker [facility] Start: 12-28-2021 End: 01-07-2022 Exposure to SARS-CoV-2 (event) Yes [facility] Start: 08-10-2022 History SDOH Alcohol Comment socially [facility] Work Phone: Start: 10-11-2022 Tobacco use panel [facility] Start: 08-11-2022 Sexual orientation Heterosexual (eve stoddard) [facility] NEGATED: Highlighted row Not [facility] Goals Date Patient Goal Desired Activity /State Mental Status Date Assessment Result Facility 04-30-2025 Cognitive function Voice/Name [facility] Work Phone: Clinical Notes 02-26-2021 to 04-30-2025 Note Date & Type Note Facility 04-30-2025 Consult note [facility] 04-30-2025 History and physical note Note Date/Time April 30, 2025 1:08pm [facility] Medical Records Department [address] [place] [address] History & Physical Exam 04/30/25 1305 MR#: [id number] Acct: [id number] Name: HEAVEN POWER Rep #:[id number] : 1970 54 From: Eder Paniagua DO PCP: Care Physician,No Primary Status :[facility] Location: [place] [address] HPI - General General Date of Admission: 04/30/25 Date of Service: 04/30/25 HPI Narrative HEAVEN POWER, is a 54 F who presents Chief Complaint: ER f/u abdominal pain [facility] ED 04.13.25 with epigastric and RUQ pain x1 month. Comes in episodes. Pt drinks about a sixpack of twisted tea 3 times per week. Hx of gastric ulcer. Discontinued PPI. Cholecystectomy 5 years ago. Work up with normal CBC, CMP and lipase. Given GI cocktail and discharged. Pt here today for evaluation after ED. Pt has had issues with epigastric pain for many years but worsening over the past few months. Pt pain is constant and dull. It will become sharp at some points. She has constant nausea, early satiety and vomiting. SHe feels her food sits in her stomach. SHe has been on pantoprazole for many years just once a day. She has constipation alternating with loose stools. She notes she has had constipation since she was a child. Shehas diarrhea after eating certain foods which started after getting her gallbladder out. Last EGD and colonoscopy in 2019 with normal findings. She has also been struggling with whole body hives which she ahs been told is related toanxiety. SHe started taking aloe, papaya and black walnut supplements for this. SHe does not take daily NSAIDs but has in the past for back pain. [facility] Medical History Wears dentures Wears glasses Anxiety Alcohol use Rash Arthritis History of renal disease Excessive bleeding Easy bruising Back pain Injury of head and neck History of ulceration Gastric reflux Vapes nicotine containing substance Former smoker History of pain when walking Stomach ulcer Renal agenesis Home Medications ?Medication ?Instructions ?Recorded ?Last Taken ?Type famotidine 20 mg tablet (Acid 20 mg PO DAILY 04/13/25 04/13/25 History Controller) fexofenadine 180 mg tablet 180 mg PO DAILY 04/13/25 History (Elli Hives) ibuprofen 200 mg tablet (Advil) 400 mg PO Q6H PRN feve r or pain 04/13/25 04/13/25 History ondansetron 4 mg disintegrating 4 mg PO Q8H PRN PRN Na usea #10 tabs 04/13/25 Unknown Rx tablet aloe vera 5,000 mg capsule 5,000 mg PO DAILY 04/22/25 04/22/25 History black walnut [place] 450 mg capsule 450 mg PO DAILY 04/2204/22/25 History carica papaya 1 tab PO DAILY 04/22/2511/16 History albuterol sulfate 90 mcg/actuation 2 puff inhalation 4 X/DAY PRN PRN 04/29/25 Unknown History aerosol inhaler shortness of breath or wheez ing pantoprazole 40 mg tablet,delayed 40 mg PO DAILY 04/29 Unknown History release Allergy/AdvReac Type Severity Reaction Status Date / Time aspirin Allergy Rash Verified 04/30/25 13:01 codeine Allergy Rash Verified 04/30/25 13:01 latex AdvReac Severe Rash Verified 04/30/25 13:01 Surgical History Hx of dilation and curettage Hx of section Hx of surgical procedure Hx of left knee surgery Hx of cervical spine surgery Hx of cholecystectomy Social History Smoking Status: Current every day smoker tobacco type: e-cigarettes ROS Constitutional Constitutional: Denies fatigue, fever(s), poor appetite, weight gain or weight loss Gastrointestinal Gastrointestinal: Denies belching, bloating, change in bowel habits, change in stool character, chewing difficulty, coffee ground emesis, constipation, cramping, diarrhea, dyspepsia, dysphagia, early satiety, excessive flatus, fecalincontinence, heartburn, hematemesis, hematochezia, hemorrhoids, loose stools, melena, nausea, odynophagia, rectal bleeding, tenesmus, vomiting or weight changes Physical Exam Const alert, oriented x3, no apparent distress and healthy appearing General Appearance: cooperative GI normal to inspection, nondistended, normoactive bowel sounds, soft to palpation,non-tender and non-distended Percussion: normal to percussion Rectal Exam: deferred Assessment & Plan Assessment/Plan (1) Loose stools: (2) Constipation: (3) Epigastric pain: PLAN: Assessment and Plan Assessment and Plan (1) Epigastric pain: Status: Acute Plan: Heaven is a 54 yo female pt here today for follow up after ED visit for epigastric pain, n/v and early satiety. She is s/p cholecystectomy about 5 yearsago and since then has had intermittent diarrhea with certain foods. This is likely bile acid diarrhea. She has chronic dull epigastric pain that has been getting worse and vomiting in episodes of sharp unbearable pain. She has been onPPI for many years. Will increase pantoprazole to 40 mg BID and she make increase frequency of Pepcid to 4x per day PRN. She endorses a prior hx of gastric ulcers. She denies current NSAIDs use. SHe will undergo EGD to evaluate her upper GI tract for inflammation or ulcers. She will also undergo colonoscopyat the same time due to the change in her bowel habits. -EGD and colon -Increase PPI ad H2 romaine -f/u after procedures (2) Nausea & vomiting: Status: Inactive (3) Constipation: Status: Acute (4) Loose stools: Status: Acute (5) Hx of cholecystectomy: Status: Acute Medications: New pantoprazole 40 mg PO BID 60 tabs 3RF 04/30/25 1308 <Electronically signed by Eder Paniagua DO> Cosigner Signature (if applicable): CC: No Primary Care Physician; Eder Paniagua DO~ Signed [facility] Work Phone: 1(704) 353-557007-09-2025 Procedure note [facility] Medical Records Department [address] [place] [address] Colonoscopy Report MR#: [id number] Acct: [id number] Name: HEAVEN POWER Rep #:[id number] : 1970 54 From: Eder Paniagua DO PCP: Care Physician,No Primary Status :[facility] Patient Name: Heaven Power Procedure Date: 04/30/2025 2:08 PM Date of : 1970 Age: 54 Procedure: Colonoscopy Indications: Screening for colorectal malignant neoplasm Providers: Eder Paniagua DO Medicines: Monitored Anesthesia Care Patient Profile: This is a 54 year old female. Refer to note in patient chart for documentation of history and physical. Patient has symptoms of chronic abdominal cramping, chronic epigastric abdominal pain, chronic dyspepsia and chronic nausea. Last Colonoscopy: none. The patient's first colonoscopy is today. Complications: No immediate complications. Procedure: Pre-Anesthesia Assessment: - Prior to the procedure, a History and Physical was performed, and patient medications and allergies were reviewed. The patient is competent. The risks and benefits of the procedure and the sedation options and risks were discussed with the patient. All questions were answered and informed consent was obtained. Patient identification and proposed procedure were verified by the physician in the pre-procedure area. Mental Status Examination: alert and oriented. Airway Examination: normal oropharyngeal airway and neck mobility. Respiratory Examination: clear to auscultation. CV Examination: normal. Prophylactic Antibiotics: The patient does not require prophylactic antibiotics. Prior Anticoagulants: The patient has taken no anticoagulant or antiplatelet agents except for NSAID medication. ASA Grade Assessment: II - A patient with mild systemic disease. After reviewing the risks and benefits, the patient was deemed in satisfactory condition to undergo the procedure. The anesthesia plan was to use monitored anesthesia care (MAC). Immediately prior to administration of medications, the patient was re-assessed for adequacy to receive sedatives. The heart rate, respiratory rate, oxygen saturations, blood pressure, adequacy of pulmonary ventilation, and response to care were monitored throughout the procedure. The physical status of the patient was re-assessed after the procedure. After I obtained informed consent, the scope was passed under direct vision. Throughout the procedure, the patient's blood pressure, pulse, and oxygen saturations were monitored continuously. The Colonoscope was introduced through the anus and advanced to the terminal ileum. The colonoscopy was performed without difficulty. The patient tolerated the procedure well. The quality of the bowel preparation was adequate. The terminal ileum, ileocecal valve, appendiceal orifice, and rectum were photographed. Scope In: 2:10:51 PM Scope Withdrawal Time 0 hours 9 minutes 41 seconds Scope Out: 2:23:56 PM Total Procedure Duration Time 0 hours 13 minutes 5 seconds Findings: The perianal and digital rectal examinations were normal. A 5 mm polyp was found in the rectum. The polyp was sessile. The polyp was removed with a jumbo cold forceps. Resection and retrieval were complete. Verification of patient identification for the specimen was done. Estimated blood loss was minimal. An area of mildly congested mucosa was found in the sigmoid colon, in the descending colon and in the ascending colon. Biopsies were taken with a cold forceps for histology. Verification of patient identification for the specimen was done. Estimated blood loss was minimal. The terminal ileum appeared normal. Biopsies were taken with a cold forceps for histology. Verification of patient identification for the specimen was done. Estimated blood loss was minimal. Impression: - One 5 mm polyp in the rectum, removed with a jumbo cold forceps. Resected and retrieved. - Congested mucosa in the sigmoid colon, in the descending colon and in the ascending colon. Biopsied. - The examined portion of the ileum was normal. Biopsied. Recommendation: - Discharge patient to home. - Resume previous diet. - Continue present medications. - Await pathology results. - Repeat colonoscopy in 5 years for surveillance based on pathology results. Procedure Code(s): --- Professional --- 67312, Colonoscopy, flexible; with biopsy, single or multiple CPT copyright 2021 [employer]. All rights reserved. The codes documented in this report are preliminary and upon support team assoc review may be revised to meet current compliance requirements. Eder Paniagua DO 04/30/2025 2:34:11 PM This report has been signed electronically. Number of Addenda: 0 Note Initiated On: 04/30/2025 2:08 PM 04/30/25 1434 Date _ Eder Macias Signature: Date (if indicated) CC: No Primary Care Physician; Eder Paniagua DO ~ Date Dictated: 04/30/25 1408 Date Transcribed: Silk Screen Layout Drafter: LICHA Signed [facility]07-09-2025 Procedure note [facility] Medical Records Department [address] [place] [address] Operative Report - CC Letter MR#: [id number] Acct: [id number] Name: HEAVEN POWER Rep #:[id number] : 1970 54 From: Eder Paniagua DO PCP: Care Physician,No Primary Status :[facility] 04/30/2025 No Primary Care Physician Re : Colonoscopy procedure for Heaven Power Dear Care Physician This procedure was performed on Monday, April 30, 2025. My impressions and recommendations are as follows: Impressions : - One 5 mm polyp in the rectum, removed with a jumbo cold forceps. Resected and retrieved. - Congested mucosa in the sigmoid colon, in the descending colon and in the ascending colon. Biopsied. - The examined portion of the ileum was normal. Biopsied. Recommendations : - Discharge patient to home. - Resume previous diet. - Continue present medications. - Await pathology results. - Repeat colonoscopy in 5 years for surveillance based on pathology results. My findings are described in the full procedure note, which is enclosed. If I can be of further assistance, please feel free to contact me at . Sincerely, Eder Paniagua DO 04/30/2025 2:34:11 PM This report has been signed electronically. 04/30/25 1434 Date _ Eder Macias Signature: Date (if indicated) CC: No Primary Care Physician; Eder Paniagua DO ~ Date Dictated: 04/30/25 1408 Date Transcribed: Silk Screen Layout Drafter: RF Signed [facility]07-09-2025 Consult note [facility] Medical Records Department [address] [place] [address] Anesthesia Postop Eval I 04/30/25 1433 MR#: [id number] Acct: [id number] Name: HEAVEN POWER Rep #:[id number] : 1970 54 From: Shane Heredia PCP: Care Physician,No Primary Status :[facility] Y Race: C Location: [place] [address] Anesthesia: Postop Eval I Current Vital Signs Temperature: 97.8 F Pulse Rate: 92 Blood Pressure: 117/85 Respiratory Rate: 16 Pulse Ox: 99 Oxygen Delivery Method: Room Air Assessment Airway patent: Yes Spontaneous unlabored respirations: Yes Mental status: Awake nausea: No Vomiting: No Anesthesia Complication: No Fluid Hydration Crystalloid volume administer (ml): 600 Total IV fluid infused: 600 Progress Note Anesthesia document: Postop Eval 1 completed: Yes 04/30/25 1434 > Date _ Shane Jimenez Signature: Date CC: ~ Signed [facility]07-09-2025 Procedure note [facility] Medical Records Department [address] [place] [address] EGD Report MR#: [id number] Acct: [id number] Name: HEAVEN POWER Rep #:[id number] : 1970 54 From: Eder Paniagua DO PCP: Care Physician,No Primary Status :[facility] Patient Name: Heaven Power Procedure Date: 04/30/2025 1:52 PM Date of : 1970 Age: 54 Procedure: Upper GI endoscopy Indications: Epigastric abdominal pain, Functional Dyspepsia Providers: Eder Friend, DO Medicines: Monitored Anesthesia Care Patient Profile: This is a 54 year old female. Refer to note in patient chart for documentation of history and physical. Patient has symptoms of chronic abdominal cramping, chronic epigastric abdominal pain, chronic dyspepsia and chronic nausea. Complications: No immediate complications. Procedure: Pre-Anesthesia Assessment: - Prior to the procedure, a History and Physical was performed, and patient medications and allergies were reviewed. The patient is competent. The risks and benefits of the procedure and the sedation options and risks were discussed with the patient. All questions were answered and informed consent was obtained. Patient identification and proposed procedure were verified by the physician in the pre-procedure area. Mental Status Examination: alert and oriented. Airway Examination: normal oropharyngeal airway and neck mobility. Respiratory Examination: clear to auscultation. CV Examination: normal. Prophylactic Antibiotics: The patient does not require prophylactic antibiotics. Prior Anticoagulants: The patient has taken no anticoagulant or antiplatelet agents except for NSAID medication. ASA Grade Assessment: II - A patient with mild systemic disease. After reviewing the risks and benefits, the patient was deemed in satisfactory condition to undergo the procedure. The anesthesia plan was to use monitored anesthesia care (MAC). Immediately prior to administration of medications, the patient was re-assessed for adequacy to receive sedatives. The heart rate, respiratory rate, oxygen saturations, blood pressure, adequacy of pulmonary ventilation, and response to care were monitored throughout the procedure. The physical status of the patient was re-assessed after the procedure. After obtaining informed consent, the endoscope was passed under direct vision. Throughout the procedure, the patient's blood pressure, pulse, and oxygen saturations were monitored continuously. The Colonoscope was introduced through the mouth, and advanced to the fourth part of the duodenum. Small bowel enteroscopy was deemed necessary. The upper GI endoscopy was accomplished without difficulty. The patient tolerated the procedure well. Scope In: 2:05:16 PM Scope Out: 2:08:44 PM Total Procedure Duration Time 0 hours 3 minutes 28 seconds Findings: The examined esophagus was normal. No gross lesions were noted in the entire examined stomach. Diffuse mildly erythematous mucosa without active bleeding and with no stigmata of bleeding was found in the entire duodenum. Biopsies were taken with a cold forceps for histology. Verification of patient identification for the specimen was done. Estimated blood loss was minimal. Impression: - Normal esophagus. - No gross lesions in the entire stomach. - Erythematous duodenopathy. Biopsied. Recommendation: - Discharge patient to home. - Resume previous diet. - Continue present medications. - Await pathology results. Procedure Code(s): --- Professional --- 33227, Small intestinal endoscopy, enteroscopy beyond second portion of duodenum, not including ileum; with biopsy, single or multiple CPT copyright 2021 [employer]. All rights reserved. The codes documented in this report are preliminary and upon support team assoc review may be revised to meet current compliance requirements. Eder Paniagua DO 04/30/2025 2:31:49 PM This report has been signed electronically. Number of Addenda: 0 Note Initiated On: 04/30/2025 1:52 PM 04/30/25 1432 Date _ Eder Paniagua DO Cosigner Signature: Date (if indicated) CC: No Primary Care Physician; Eder Paniagua DO ~ Date Dictated: 04/30/25 1352 Date Transcribed: Silk Screen Layout Drafter: LICHA Signed [facility]07-09-2025 Procedure note [facility] Medical Records Department [address] [place] [address] Operative Report - CC Letter MR#: [id number] Acct: [id number] Name: HEAVEN POWER Rep #:[id number] : 1970 54 From: Eder Paniagua DO PCP: Care Physician,No Primary Status :[facility] 04/30/2025 No Primary Care Physician Re : Upper GI endoscopy procedure for Heaven Power Dear Care Physician This procedure was performed on Monday, April 30, 2025. My impressions and recommendations are as follows: Impressions : - Normal esophagus. - No gross lesions in the entire stomach. - Erythematous duodenopathy. Biopsied. Recommendations : - Discharge patient to home. - Resume previous diet. - Continue present medications. - Await pathology results. My findings are described in the full procedure note, which is enclosed. If I can be of further assistance, please feel free to contact me at . Sincerely, Edergareth Paniagua 04/30/2025 2:31:49 PM This report has been signed electronically. 04/30/25 1432 Date _ Eder Siva BRICEÑO Cosigner Signature: Date (if indicated) CC: No Primary Care Physician; Eder DO Siva ~ Date Dictated: 04/30/25 1352 Date Transcribed: Silk Screen Layout Drafter: RF Signed [facility]07-09-2025 Consult note [facility] Medical Records Department [address] [place] [address] Pre-Anesthesia Evaluation 04/30/25 1336 MR#: [id number] Acct: [id number] Name: HEAVEN POWER Rep #:[id number] : 1970 54 From: Armand Villa PCP: Care Physician,No Primary Status :[facility] SDC Y Race: C Location: [place] [address] ASA Classification* ASA Classification ASA Classification: 2 Assessment & Plan Anesthesia* Anesthesia Assessment Anesthesia Assessment: Discussed sedation and/or anesthesia options, risks, benefits, and alternatives with patient/parents/legal guardian/POA. Questions invited. The patient/parents/legal guardian/POA seems to understand and agrees to proceedwith anesthesia plan. Reviewed the physical assessment, medical history, allergy history and patient home medications list prior to surgery/procedure/anesthetic and documented any changes. Performed airway and anesthesia risk assessments. Anesthesia Type Anesthesia Type: MAC History Source History Obtained from:: Patient and Chart Anesthesia Focused Assessment* Temperature: 98.5 F Pulse Rate: 76 Blood Pressure: 141/84 Respiratory Rate: 16 Pulse Ox: 97 Oxygen Delivery Method: Room Air Airway Assessment Mouth opens: >3 cm Mallampati Score: I Teeth Condition: Dentures and Upper Labs Anesthesia Preop lab: CBC WBC 11.9 K/mm3 (4.4-11.0) H 04/13/25 13: 5 RBC 4.19 M/mm3 (4.2-5.4) L 04/13/25 13:31 04/13/25 Hgb 13.6 g/dL (12.0-15.0) 04/13/25 13:04/13/25 Hct 40.2 % (37-47) 04/13/25 13:31 04/13/25 Plt Count 280 K/mm3 (150-450) 04/13/25 13:31 04/13/25 CHEMISTRY Potassium 4.2 mmol/L (3.3-5.1) 04/13/25 13:31 04/13/25 Sodium 141 mmol/L (133-145) 04/13/25 13:31 04/13/25 BUN 17 mg/dL (4-19) 04/13/25 13:04/13/25 Creatinine 1.06 mg/dL (0.70-1.20) 04/13/25 13:31 04/13/25 Glucose 91 mg/dL (70-99) 04/13/25 13:04/13/25 COAG Pre-Assessment Diagnosis/Proposed Procedure Planned Operative Procedure(s): COLONOSCOPY/EGD Anesthesia History 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 When Was Last Pacemaker Check QUESTION #4 FULL TEXT: You/Your Family Experience fever (hyperthermia) with Anesthesia Last Oral Intake Last Oral intake: Last Oral Intake NPO since 10:30 04/30/25 13:03 Meds taken in AM with sips of No 04/30/25 13:03 water? Meds patient instructed to take am of surgery PONV PONV - drywall stripper: PONV - drywall stripper Female Yes 04/29/25 15:01 HX of Motion Sickness Yes 04/29/25 15:01 HX of N/V After Surgery Yes 04/29/25 15:01 Non-Smoker No 04/29/25 15:01 Duration of Surgery greater No 04/29/25 15:01 than 60 minutes Number of Risk Factors 3 04/29/25 15:01 PONV Score Moderate Risk 04/29/25 15:01 Height & Weight Height & Weight: Anesthesia: Height & Weight Height 5 ft 3 in 04/30/25 13:03 Weight: 76 kg 04/30/25 13:03 Body Mass Index (BMI) 29.7 04/30/25 13:03 Respiratory Assessment Respiratory Assessment - drywall stripper: Respiratory Tract Infection Hx - drywall stripper Hx Respiratory Tract Infection No 04/29/25 15:01 STOP Sleep Apnea STOP Sleep Apnea - drywall stripper: STOP Sleep Apnea - drywall stripper Hx Hypertension No 04/29/25 15:01 Hx Sleep Apnea No 04/29/25 15:01 CPAP BIPAP Do you snore loudly (louder No 04/29/25 15:01 than talking or can be heard Do you often feel tired/ No 04/29/25 15:01 fatigued/ sleepy during daytime? Has anyone observed you stop No 04/29/25 15:01 breathing during sleep? STOP Results Negative 04/29/25 15:01 QUESTION #5 FULL TEXT : Do you snore loudly (louder than talking or can be heard through closeddoors)? Tobacco Use History Tobacco Use History - drywall stripper: Tobacco Use History - drywall stripper Tobacco Use Smoking Status Current every day smoker 04/29/25 15:01 Hx Tobacco Use Yes 04/29/25 15:01 Years Smoking Packs Smoked per Day Smoking Cessation Date was within the last 15 years Hx Smoking Cessation Date Hx Smoking Cessation No 04/29/25 15:01 Counseling Hematologic Medial History Hematologic Hx - drywall stripper: Hematologic Medical Hx - magazine hand Hx of Blood Transfusion No 04/29/25 15:01 Hx of Transfusion in last 3 No 04/29/25 15:01 Months Date of Last Transfusion (if within last 3 months) Ever experience any problems No 04/29/25 15:01 with transfusion(s)? Specify any problems Hx of Preganancy in last 3 No 04/29/25 15:01 Months Nurse Filling Out Transfusion VCHRISTIN 04/29/25 15:01 & Questions: Date: 04/29/25 04/29/25 15:01 Time: 15:02 04/29/25 15:01 Patient unable to answer at this time (ie. confused, unrespo /Reproduction History /Reproductive History - drywall stripper: /Reproductive Hx- drywall stripper Hx Now No 04/29/25 15:01 Gestational Age (in weeks): EDC: Hx Hx Para Hx Section SAB No 04/29/25 15:01 Active Medications Active Medications: Current Medications Generic Name Dose Route Start Last Admin Trade Name Freq PRN Reason Stop Dose Admin Lactated Ringer's 1,000 mls @ 15 mls/hr 04/30/25 13:00 04/30/25 13:21 IV 15 mls/hr .Q48H REGINO Administration PFSH Medical History Wears dentures Wears glasses Anxiety Alcohol use Rash Arthritis History of renal disease Excessive bleeding Easy bruising Back pain Injury of head and neck History of ulceration Gastric reflux Vapes nicotine containing substance Former smoker History of pain when walking Stomach ulcer Renal agenesis Home Medications ?Medication ?Instructions ?Recorded ?Last Taken ?Type famotidine 20 mg tablet (Acid 20 mg PO DAILY 04/13/25 04/13/25 History Controller) fexofenadine 180 mg tablet 180 mg PO DAILY 04/13/25 History (Elli Hives) ibuprofen 200 mg tablet (Advil) 400 mg PO Q6H PRN feve r or pain 04/13/25 04/13/25 History ondansetron 4 mg disintegrating 4 mg PO Q8H PRN PRN Na usea #10 tabs 04/13/25 Unknown Rx tablet aloe vera 5,000 mg capsule 5,000 mg PO DAILY 04/22/25 04/22/25 History black walnut pennington 450 mg capsule 450 mg PO DAILY 04/2204/22/25 History carica papaya 1 tab PO DAILY 04/22/2511/16 History albuterol sulfate 90 mcg/actuation 2 puff inhalation 4 X/DAY PRN PRN 04/29/25 Unknown History aerosol inhaler shortness of breath or wheez ing pantoprazole 40 mg tablet,delayed 40 mg PO DAILY 04/29 Unknown History release Allergy/AdvReac Type Severity Reaction Status Date / Time aspirin Allergy Rash Verified 04/30/25 13:01 codeine Allergy Rash Verified 04/30/25 13:01 latex AdvReac Severe Rash Verified 04/30/25 13:01 Surgical History Hx of dilation and curettage Hx of section Hx of surgical procedure Hx of left knee surgery Hx of cervical spine surgery Hx of cholecystectomy Social History Smoking Status: Current every day smoker tobacco type: e-cigarettes Review of Systems (Anesthesia) ROS Narrative System reviewed and no additional complaints, except as documented. 04/30/25 1341 MD> Date _ Armand Dawson MD Cosigner Signature: Date CC: ~ Signed [facility]07-09-2025 History and physical note [facility] Medical Records Department [address] [place] [address] History & Physical Exam 04/30/25 1305 MR#: [id number] Acct: [id number] Name: HEAVEN POWER Chantelle Rep #:[id number] : 1970 54 From: Eder Friend PCP: Care Physician,No Primary Status :[facility] Location: [place] [address] HPI - General General Date of Admission: 04/30/25 Date of Service: 04/30/25 HPI Narrative HEAVEN POWER, is a 54 F who presents Chief Complaint: ER f/u abdominal pain [facility] ED 04.13.25 with epigastric and RUQ pain x1 month. Comes in episodes. Pt drinks about a sixpack of twisted tea 3 times per week. Hx of gastric ulcer. Discontinued PPI. Cholecystectomy 5 years ago.Work up with normal CBC, CMP and lipase. Given GI cocktail and discharged. Pt here today for evaluation after ED. Pt has had issues with epigastric pain for many years but worsening over the past few months. Pt pain is constant and dull. It will become sharp at some points.She has constant nausea, early satiety and vomiting. SHe feels her food sits in her stomach. SHe has been on pantoprazole for many years just once a day. She has constipation alternating with loose stools. She notes she has had constipation since she was a child. Shehas diarrhea after eating certain foods which started after getting her gallbladder out. Last EGD and colonoscopy in 2019 with normal findings. She has also been struggling with whole body hives which she ahs been told is related toanxiety. SHe started taking aloe, papaya and black walnut supplements for this. SHe does not take daily NSAIDs but has in the past for back pain. [facility] Medical History Wears dentures Wears glasses Anxiety Alcohol use Rash Arthritis History of renal disease Excessive bleeding Easy bruising Back pain Injury of head and neck History of ulceration Gastric reflux Vapes nicotine containing substance Former smoker History of pain when walking Stomach ulcer Renal agenesis Home Medications ?Medication ?Instructions ?Recorded ?Last Taken ?Type famotidine 20 mg tablet (Acid 20 mg PO DAILY 04/13/25 04/13/25 History Controller) fexofenadine 180 mg tablet 180 mg PO DAILY 04/13/25 History (Elli Hives) ibuprofen 200 mg tablet (Advil) 400 mg PO Q6H PRN feve r or pain 04/13/25 04/13/25 History ondansetron 4 mg disintegrating 4 mg PO Q8H PRN PRN Na usea #10 tabs 04/13/25 Unknown Rx tablet aloe vera 5,000 mg capsule 5,000 mg PO DAILY 04/22/25 04/22/25 History black walnut pennington 450 mg capsule 450 mg PO DAILY 04/2204/22/25 History carica papaya 1 tab PO DAILY 04/22/25 07/0 11/16 History albuterol sulfate 90 mcg/actuation 2 puff inhalation 4 X/DAY PRN PRN 04/29/25 Unknown History aerosol inhaler shortness of breath or wheez ing pantoprazole 40 mg tablet,delayed 40 mg PO DAILY 04/29 Unknown History release Allergy/AdvReac Type Severity Reaction Status Date / Time aspirin Allergy Rash Verified 04/30/25 13:01 codeine Allergy Rash Verified 04/30/25 13:01 latex AdvReac Severe Rash Verified 04/30/25 13:01 Surgical History Hx of dilation and curettage Hx of section Hx of surgical procedure Hx of left knee surgery Hx of cervical spine surgery Hx of cholecystectomy Social History Smoking Status: Current every day smoker tobacco type: e-cigarettes ROS Constitutional Constitutional: Denies fatigue, fever(s), poor appetite, weight gain or weight loss Gastrointestinal Gastrointestinal: Denies belching, bloating, change in bowel habits, change in stool character, chewing difficulty, coffee ground emesis, constipation, cramping, diarrhea, dyspepsia, dysphagia, earlysatiety, excessive flatus, fecalincontinence, heartburn, hematemesis, hematochezia, hemorrhoids, loose stools, melena, nausea, odynophagia, rectal bleeding, tenesmus, vomiting or weight changes Physical Exam Const alert, oriented x3, no apparent distress and healthy appearing General Appearance: cooperative GI normal to inspection, nondistended, normoactive bowel sounds, soft to palpation,non-tender and non-distended Percussion: normal to percussion Rectal Exam: deferred Assessment & Plan Assessment/Plan (1) Loose stools: (2) Constipation: (3) Epigastric pain: PLAN: Assessment and Plan Assessment and Plan (1) Epigastric pain: Status: Acute Plan: Heaven is a 54 yo female pt here today for follow up after ED visit for epigastric pain, n/v and early satiety. She is s/p cholecystectomy about 5 yearsago and since then has had intermittent diarrhea with certain foods. This is likely bile acid diarrhea. She has chronic dull epigastric pain that has been getting worse and vomiting in episodes of sharp unbearable pain. She has been onPPI for manyyears. Will increase pantoprazole to 40 mg BID and she make increase frequency of Pepcid to 4x per day PRN. She endorses a prior hx of gastric ulcers. She denies current NSAIDs use. SHe will undergo EGD to evaluate her upper GI tract for inflammation or ulcers. She will also undergo colonoscopyat the same time due to the change in her bowel habits. -EGD and colon -Increase PPI ad H2 romaine -f/u after procedures (2) Nausea & vomiting: Status: Inactive (3) Constipation: Status: Acute (4) Loose stools: Status: Acute (5) Hx of cholecystectomy: Status: Acute Medications: New pantoprazole 40 mg PO BID 60 tabs 3RF 04/30/25 1308 Cosigner Signature (if applicable): CC: No Primary Care Physician; Eder Paniagua DO~ Signed [facility]07-09-2025 [facility] Medical Records Department [address] [place] [id number] History Physical Exam 04/30/25 1305 MR#: [id number] Acct: [id number] Name: HEAEVN POWER Rep #: [id number] : 1970 54 From: Eder Paniagua DO PCP: Care Physician,No Primary Status:[facility] Location: [place] [address] HPI - General General Date of Admission: 04/30/25 Date of Service: 04/30/25 HPI Narrative HEAVEN POWER, is a 54 F who presents Chief Complaint: ER f/u abdominal pain [facility] ED 04.13.25 with epigastric and RUQ pain x1 month. Comes in episodes. Pt drinks about a sixpack of twisted tea 3 times per week. Hx of gastric ulcer. Discontinued PPI. Cholecystectomy 5 years ago. Work up with normal CBC, CMP and lipase. Given GI cocktail and discharged. Pt here today for evaluation after ED. Pt has had issues with epigastric pain for many years but worsening over the past few months. Pt pain is constant and dull. It will become sharp at some points. She has constant nausea, early satiety and vomiting. SHe feels her food sits in her stomach. SHe has been on pantoprazole for many years just once a day. She has constipation alternating with loose stools. She notes she has had constipation since she was a child. She has diarrhea after eating certain foods which started after getting her gallbladder out. Last EGD and colonoscopy in 2019 with normal findings. She has also been struggling with whole body hives which she ahs been told is related to anxiety. SHe started taking aloe, papaya and black walnut supplements for this. SHe does not take daily NSAIDs but has in the past for back pain. [facility] Medical History Wears dentures Wears glasses Anxiety Alcohol use Rash Arthritis History of renal disease Excessive bleeding Easy bruising Back pain Injury of head and neck History of ulceration Gastric reflux Vapes nicotine containing substance Former smoker History of pain when walking Stomach ulcer Renal agenesis Home Medications ???Medication ???Instructions ???Recorded ???Last Taken ???Type famotidine 20 mg tablet (Acid 20 mg PO DAILY 04/13/25 04/13/25 H istory Controller) fexofenadine 180 mg tablet 180 mg PO DAILY 04/13/25 04/13/25 History (Leli Hives) ibuprofen 200 mg tablet (Advil) 400 mg PO Q6H PRN fever or pain 04/13/25 History ondansetron 4 mg disintegrating 4 mg PO Q8H PRN PRN Nausea #10 tab s 04/13/25 Unknown Rx tablet aloe vera 5,000 mg capsule 5,000 mg PO DAILY 04/22/25 5 History black walnut pennington 450 mg capsule 450 mg PO DAILY 04/22/25 04/22/25 History carica papaya 1 tab PO DAILY 04/22/25 04/22/25 H istory albuterol sulfate 90 mcg/actuation 2 puff inhalation 4X/DAY PRN PRN 04/29/25 Unknown History aerosol inhaler shortness of breath or wheezing pantoprazole 40 mg tablet,delayed 40 mg PO DAILY 04/29/25 Unknown H istory release Allergy/AdvReac Type Severity Reaction Status Date / Time aspirin Allergy Rash Verified 04/30/25 13:01 codeine Allergy Rash Verified 04/30/25 13:01 latex AdvReac Severe Rash Verified 04/30/25 13:01 Surgical History Hx of dilation and curettage Hx of section Hx of surgical procedure Hx of left knee surgery Hx of cervical spine surgery Hx of cholecystectomy Social History Smoking Status: Current every day smoker tobacco type: e-cigarettes ROS Constitutional Constitutional: Denies fatigue, fever(s), poor appetite, weight gain or weight loss Gastrointestinal Gastrointestinal: Denies belching, bloating, change in bowel habits, change in stool character, chewing difficulty, coffee ground emesis, constipation, cramping, diarrhea, dyspepsia, dysphagia, early satiety, excessive flatus, fecal incontinence, heartburn, hematemesis, hematochezia, hemorrhoids, loose stools, melena, nausea, odynophagia, rectal bleeding, tenesmus, vomiting or weight changes Physical Exam Const alert, oriented x3, no apparent distress and healthy appearing General Appearance: cooperative GI normal to inspection, nondistended, normoactive bowel sounds, soft to palpation, non-tender and non- distended Percussion: normal to percussion Rectal Exam: deferred Assessment Plan Assessment/Plan (1) Loose stools: (2) Constipation: (3) Epigastric pain: PLAN: Assessment and Plan Assessment and Plan (1) Epigastric pain: Status: Acute Plan: Heaven is a 54 yo female pt here today for follow up after ED visit for epigastric pain, n/v and early satiety. She is s/p cholecystectomy about 5 years ago and since then has had intermittent diarrhea with certain foods. This is likely bile acid diarrhea. She has chroni (more content not included)...[facility]07-01-2025 Evaluation note* Diagnosis Onset Date Resolution Status Admit Date Constipation acute April 22 9:33am Epigastric pain acute April 22, 2025 9:33am Hx of cholecystectomy acute Apr 9:33am Loose stools acute April 22 9:33am Nausea & vomiting inactive April 9:33am Constipation acute April 30 12:34pm Epigastric pain acute April 30, 2025 12:34pm Loose stools acute April 30 12:34pm [facility] Work Phone: 1(851) 734-315207-01-2025 Evaluation note* Diagnosis Onset Date Resolution Status Admit Date Constipation acute April 22 9:33am Epigastric pain acute April 22, 2025 9:33am Hx of cholecystectomy acute Apr 9:33am Loose stools acute April 22 9:33am Nausea & vomiting inactive April 9:33am Constipation acute April 30 12:34pm Epigastric pain acute April 30, 2025 12:34pm Loose stools acute April 30 12:34pm Acute duodenitis acute April 9:56am Loose stools acute May 14, 9:56am [facility] Work Phone: 1(214) 204-279510-10-2023 NoteHNO ID: [id number] Author: Kamila Cabrera RDMS Service: ? Author Type: Urologist Type: Progress Notes Filed: 08/01/2023 3:39 PM [...] Kamila Cabrera RDMS August 01, 2023 3:39 [facility]10-10-2023 NoteHNO ID: [id number] Author: Terri Rodriguez Mammo Matt Service: ? Author Type: Urologist Type: Progress Notes Filed: 08/01/2023 2:02 PM [...] PERIPHERAL IV DATA: Not applicable SIGNED BY: Terri Rodriguez [employer] August 01, 2023 1:23 [facility]03-18-2022 Hospital Discharge instructions* Instructions* Kamilla Flowers, - 01/07/2022 Return for worsening shortness of breath, take steroids and obtain pulse oximeter if oxygen level less than 92% come back to the emergency department. * Attachments The following attachments cannot be sent through Care Everywhere. * Coronavirus Disease (COVID-19): General Info (Macanese) * Coronavirus Disease (COVID-19): Isolation (Macanese) [facility] Phone: 1(464) 428-809505-11-2021 Hospital Discharge instructions* Instructions* Aiden Farrell MD - 03/02/2021 POST-OPERATIVE INSTRUCTIONS LAPAROSCOPIC SURGERY Thank you very much for allowing me to participate in your care, it is truly a privilege. Below please see discharge orders that will help you during your recovery. Please do not hesitate to call theoffice at [phone] for any questions. After hours, the same number will allow you to reach the on-call surgeon. ? Call the office to schedule your post-operative appointment with Dr. Farrell or [facility] for 2 weeks if not already scheduled. [...] several days. Please call the office at [phone] for any questions and too make your post op appointment if needed. Thank you again for allowing me to participate in your care, and get well soon! Aiden Farrell MD FACS documented in this [facility] Work Phone: 1(678) 297-536605-07-2021 Hospital Discharge instructions* Instructions* Anitra Hale RN - 02/26/2021 ARRIVE 2 HOURS PRIOR [...] 3 days before surgery. May take tylenol forpain if needed * Attachments The following attachments cannot be sent through Care Everywhere. * Cholecystectomy: General Info (Macanese) * Cholecystectomy: Post-op (Macanese) * Cholecystectomy: Pre-op (Macanese) [facility] Work Phone: Consult note Author Armand Dawson [facility] Note Date/Time April 30, 2025 1:41p [facility] Medical Records Department [address] [place] [address] Pre-Anesthesia Evaluation 04/30/25 1336 MR#: [id number] Acct: [id number] Name: HEAVEN POWER Rep #:[id number] : 1970 54 From: Armand Villa PCP: Care Physician,No Primary Status :[facility] Race: C Location: [place] [address] ASA Classification* ASA Classification ASA Classification: 2 Assessment & Plan Anesthesia* Anesthesia Assessment Anesthesia Assessment: Discussed sedation and/or anesthesia options, risks, benefits, and alternatives with patient/parents/legal guardian/POA. Questions invited. The patient/parents/legal guardian/POA seems to understand and agrees to proceedwith anesthesia plan. Reviewed the physical assessment, medical history, allergy history and patient home medications list prior to surgery/procedure/anesthetic and documented any changes. Performed airway and anesthesia risk assessments. Anesthesia Type Anesthesia Type: MAC History Source History Obtained from:: Patient and Chart Anesthesia Focused Assessment* Temperature: 98.5 F Pulse Rate: 76 Blood Pressure: 141/84 Respiratory Rate: 16 Pulse Ox: 97 Oxygen Delivery Method: Room Air Airway Assessment Mouth opens: >3 cm Mallampati Score: I Teeth Condition: Dentures and Upper Labs Anesthesia Preop lab: CBC WBC 11.9 K/mm3 (4.4-11.0) H 04/13/25 13: 5 RBC 4.19 M/mm3 (4.2-5.4) L 04/13/25 13:04/13/25 Hgb 13.6 g/dL (12.0-15.0) 04/13/25 13:04/13/25 Hct 40.2 % (37-47) 04/13/25 13:31 04/13/25 Plt Count 280 K/mm3 (150-450) 04/13/25 13:04/13/25 CHEMISTRY Potassium 4.2 mmol/L (3.3-5.1) 04/13/25 13:31 04/13/25 Sodium 141 mmol/L (133-145) 04/13/25 13:31 04/13/25 BUN 17 mg/dL (4-19) 04/13/25 13:31 04/13/25 Creatinine 1.06 mg/dL (0.70-1.20) 04/13/25 13:31 04/13/25 Glucose 91 mg/dL (70-99) 04/13/25 13:04/13/25 COAG Pre-Assessment Diagnosis/Proposed Procedure Planned Operative Procedure(s): COLONOSCOPY/EGD Anesthesia History 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 When Was Last Pacemaker Check QUESTION #4 FULL TEXT: You/Your Family Experience fever (hyperthermia) with Anesthesia Last Oral Intake Last Oral intake: Last Oral Intake NPO since 10:30 04/30/25 13:03 Meds taken in AM with sips of No 04/30/25 13:03 water? Meds patient instructed to take am of surgery PONV PONV - drywall stripper: PONV - drywall stripper Female Yes 04/29/25 15:01 HX of Motion Sickness Yes 04/29/25 15:01 HX of N/V After Surgery Yes 04/29/25 15:01 Non-Smoker No 04/29/25 15:01 Duration of Surgery greater No 04/29/25 15:01 than 60 minutes Number of Risk Factors 3 04/29/25 15:01 PONV Score Moderate Risk 04/29/25 15:01 Height & Weight Height & Weight: Anesthesia: Height & Weight Height 5 ft 3 in 04/30/25 13:03 Weight: 76 kg 04/30/25 13:03 Body Mass Index (BMI) 29.7 04/30/25 13:03 Respiratory Assessment Respiratory Assessment - drywall stripper: Respiratory Tract Infection Hx - drywall stripper Hx Respiratory Tract Infection No 04/29/25 15:01 STOP Sleep Apnea STOP Sleep Apnea - drywall stripper: STOP Sleep Apnea - drywall stripper Hx Hypertension No 04/29/25 15:01 Hx Sleep Apnea No 04/29/25 15:01 CPAP BIPAP Do you snore loudly (louder No 04/29/25 15:01 than talking or can be heard Do you often feel tired/ No 04/29/25 15:01 fatigued/ sleepy during daytime? Has anyone observed you stop No 04/29/25 15:01 breathing during sleep? STOP Results Negative 04/29/25 15:01 QUESTION #5 FULL TEXT : Do you snore loudly (louder than talking or can be heard through closed doors)? Tobacco Use History Tobacco Use History - drywall stripper: Tobacco Use History - drywall stripper Tobacco Use Smoking Status Current every day smoker 04/29/25 15:01 Hx Tobacco Use Yes 04/29/25 15:01 Years Smoking Packs Smoked per Day Smoking Cessation Date was within the last 15 years Hx Smoking Cessation Date Hx Smoking Cessation No 04/29/25 15:01 Counseling Hematologic Medial History Hematologic Hx - drywall stripper: Hematologic Medical Hx - magazine hand Hx of Blood Transfusion No 04/29/25 15:01 Hx of Transfusion in last 3 No 04/29/25 15:01 Months Date of Last Transfusion (if within last 3 months) Ever experience any problems No 04/29/25 15:01 with transfusion(s)? Specify any problems Hx of Preganancy in last 3 No 04/29/25 15:01 Months Nurse Filling Out Transfusion VCHRISTIN 04/29/25 15:01 & Questions: Date: 04/29/25 04/29/25 15:01 Time: 15:02 04/29/25 15:01 Patient unable to answer at this time (ie. confused, unrespo /Reproduction History /Reproductive History - drywall stripper: /Reproductive Hx- drywall stripper Hx Now No 04/29/25 15:01 Gestational Age (in weeks): EDC: Hx Hx Para Hx Section SAB No 04/29/25 15:01 Active Medications Active Medications: Current Medications Generic Name Dose Route Start Last Admin Trade Name Freq PRN Reason Stop Dose Admin Lactated Ringer's 1,000 mls @ 15 mls/hr 04/30/25 13:00 04/30/25 13:21 IV 15 mls/hr .Q48H REGINO Administration PFSH Medical History Wears dentures Wears glasses Anxiety Alcohol use Rash Arthritis History of renal disease Excessive bleeding Easy bruising Back pain Injury of head and neck History of ulceration Gastric reflux Vapes nicotine containing substance Former smoker History of pain when walking Stomach ulcer Renal agenesis Home Medications ?Medication ?Instructions ?Recorded ?Last Taken ?Type famotidine 20 mg tablet (Acid 20 mg PO DAILY 04/13/25 04/13/25 History Controller) fexofenadine 180 mg tablet 180 mg PO DAILY 04/13/25 History (Elli Hives) ibuprofen 200 mg tablet (Advil) 400 mg PO Q6H PRN feve r or pain 04/13/25 04/13/25 History ondansetron 4 mg disintegrating 4 mg PO Q8H PRN PRN Na usea #10 tabs 04/13/25 Unknown Rx tablet aloe vera 5,000 mg capsule 5,000 mg PO DAILY 04/22/25 04/22/25 History black walnut [place] 450 mg capsule 450 mg PO DAILY 04/2204/22/25 History carica papaya 1 tab PO DAILY 04/22/2511/16 History albuterol sulfate 90 mcg/actuation 2 puff inhalation 4 X/DAY PRN PRN 04/29/25 Unknown History aerosol inhaler shortness of breath or wheez ing pantoprazole 40 mg tablet,delayed 40 mg PO DAILY 04/29 Unknown History release Allergy/AdvReac Type Severity Reaction Status Date / Time aspirin Allergy Rash Verified 04/30/25 13:01 codeine Allergy Rash Verified 04/30/25 13:01 latex AdvReac Severe Rash Verified 04/30/25 13:01 Surgical History Hx of dilation and curettage Hx of section Hx of surgical procedure Hx of left knee surgery Hx of cervical spine surgery Hx of cholecystectomy Social History Smoking Status: Current every day smoker tobacco type: e-cigarettes Review of Systems (Anesthesia) ROS Narrative System reviewed and no additional complaints, except as documented. 04/30/25 1341 <Electronically signed by Armand Dawson MD> Date _ Armand Dawson MD Cosigner Signature: Date CC: ~ Signed [facility] Work Phone: Consult note Author Shane Heredia [facility] Note Date/Time April 30, 2025 2:34p m [facility] Medical Records Department [address] [place] [address] Anesthesia Postop Eval I 04/30/25 1433 MR#: [id number] Acct: [id number] Name: HEAVEN POWER Rep #:[id number] : 1970 54 From: Shane Heredia PCP: Care Physician,No Primary Status :REG SDC Y Race: C Location: [place] [address] Anesthesia: Postop Eval I Current Vital Signs Temperature: 97.8 F Pulse Rate: 92 Blood Pressure: 117/85 Respiratory Rate: 16 Pulse Ox: 99 Oxygen Delivery Method: Room Air Assessment Airway patent: Yes Spontaneous unlabored respirations: Yes Mental status: Awake nausea: No Vomiting: No Anesthesia Complication: No Fluid Hydration Crystalloid volume administer (ml): 600 Total IV fluid infused: 600 Progress Note Anesthesia document: Postop Eval 1 completed: Yes 04/30/25 [id number] <Electronically signed by Shane Heredia > Date _ Shane Jimenez Signature: Date CC: ~ Signed [facility] Work Phone: Consult note Author Armand [facility] Note Date/Time April 30, 2025 3:24p [facility] Medical Records Department [address] [place] [id number] Anesthesia Postop Eval II 04/30/25 1523 MR#: [id number] Acct: [id number] Name: HEAVEN POWER Rep #:[id number] : 1970 54 From: Armand [place] PCP: Care Physician,No Primary Status :REG SD Y Race: C Location: [place] [address] Anesthesia Postop Eval I Sum Postop Eval Completion status Anesthesia document: Postop Eval 1 completed: Yes Anesthesia Postop Eval I Summary Anesthesia Postop Eval I Summary: Anesthesia Postop Eval I: Assessment Summary Airway patent Yes 04/30/25 14:34 [email or web address] Spontaneous unlabored Yes 04/30/25 14:34 [email or web address] respirations Mental status Awake 04/30/25 14:34 [email or web address] nausea No 04/30/25 14:34 [email or web address] Vomiting No 04/30/25 14:34 [email or web address] Anesthesia Postop Eval I: Fluid Summary Crystalloid volume administer 600 04/30/25 14:34 [email or web address] (ml) Colloids volume administered ( ml) Blood Product volume administered (ml) Total IV fluid infused 600 04/30/25 14:34 [email or web address] Anesthesia Postop Eval I: Summary Notes Anesthesia Complication No 04/30/25 14:34 [email or web address] Anesthesia Complication Comment: Post-operative progress note Anesthesia: Postop Eval II Evaluation Mental status: Awake and Calm Pain Level: 1 nausea: No Vomiting: No Complications Anesthesia Complication: No 04/30/25 1524 <Electronically signed by Armand Dawson MD> Date _ Armand Dawson MD Cosigner Signature: Date CC: ~ Signed [facility] Work Phone: Evaluation note* Diagnosis Right upper quadrant abdominal pain- Primary Abdominal pain, right upper quadrant Gallbladder sludge Calculus of gallbladder without mention of cholecystitis or obstruction Adenomyomatosis of gallbladder documented in this encounter [facility] Work Phone: Evaluation note* Diagnosis RUQ abdominal pain Abdominal pain, right upper quadrant documented in this encounter [facility] Work Phone: Evaluation note* Diagnosis Gallbladder sludge- Primary Calculus of gallbladder without mention of cholecystitis or obstruction Biliary colic Calculus of gallbladder without mention of cholecystitis or obstruction documented in this encounter [facility] Work Phone: Evaluation note* Diagnosis Neck pain Cervicalgia Lumbar pain Lumbago documented in this encounter [facility] Work Phone: Evaluation note* Diagnosis COVID-19- Primary documented in this encounter [facility] Work Phone: Evaluation note* Diagnosis Acute UTI- Primary Urinary tract infection, site not specified Lower abdominal pain Abdominal pain, other specified site documented in this encounter [facility] [employer] Phone: Evaluation noteNo assessment information available [facility] Work Phone: Hospital Discharge instructions* Attachments The following attachments cannot be sent through Care Everywhere. * Abdominal Pain (Macanese) * Cholecystectomy: General Info (Macanese) documented in [facility] Work Phone: Hospital Discharge instructions* Attachments The following attachments cannot be sent through Care Everywhere. * Abdominal Pain (Macanese) * UTI (Urinary Tract Infection): Female (Macanese) documented in this [facility] Work Phone: Hospital Discharge instructions Additional Instructions You can continue Benadryl every 6 hours as needed. Follow-up with your primary care doctor and if symptoms persist you may need to get allergy testing.[facility] Work Phone: Hospital Discharge instructions Additional Instructions Follow-up with GI and return for any other concerns.[facility] Work Phone: Reason for referral (narrative)No reason for referral information [facility] Work Phone: Advance Directives Documents on File Type Date Recorded Patient Multimedia Journalist Expl anation ACP-Advance Directive ACP-Power of Child Care Center Administrator Documents on File Type Date Recorded Patient Multimedia Journalist Expl anation ACP-Advance Directive ACP-Power of Child Care Center Administrator Latest Code Status on File Code Status Date Activated Date Inactivated Comments Full Code 03/02/2021 11:33 AM Latest Code Status on File Code Status Date Activated Date Inactivated Comments Full Code 03/02/2021 11:33 AM 03/02/2021 5:28 PM Advance Directive Response Recorded Date/ Time Do you have a Healthcare Power of Child Care Center Administrator? No March 07, 2025 3:44pm Advance Directive Response Recorded Date/ Time Do you have a Healthcare Power of Child Care Center Administrator? No March 07, 2025 3:44pm Do you have a Healthcare Power of Child Care Center Administrator? No April 13, 2025 12:43pm Advance Directive Response Recorded Date/ Time Do you have a Healthcare Power of Child Care Center Administrator? No March 07, 2025 3:44pm Do you have a Healthcare Power of Child Care Center Administrator? No April 13, 2025 12:43pm Do you have a Healthcare Power of Child Care Center Administrator? No April 29, 2025 3:01pm Reason for Referral Status Reason Specialty Diagnoses / Procedures Referred By Contact Referred To Contact [facility] Required General Surgery Diagnoses Right upper quadrant abdominal pain Gallbladder sludge Adenomyomatosis of gallbladder Wes Monteiro, SEAL DELIVERY VEHICLE TEAM TECHNICIAN - SEED SERVICE ADVISOR [address] [place] [address] David Kent MD [address] [place] [address] [address] [place] [address] Scheduling Instructions [facility] General Surgery - David Kent MD [address] [place] [address] [address] [place], [place] [address] Status Reason Specialty Diagnoses / Procedures Referre d By Contact Referred To Contact [facility] Diagnoses RUQ abdominal pain Procedures US ABDOMEN LIMITED Tom Wiggins, DO [address] [place] [address] Summary Purpose Family History No Family History Records FoundNo Family History Records FoundNo Family History Records Found Chief Complaint and Reason for Visit Chief Complaint Admit Date rash March 07, 2025 3:26p m Chief Complaint Admit Date rash March 07, 2025 3:26p m ABD PAIN April 13, 2025 12:4 2pm Chief Complaint Admit Date rash March 07, 2025 3:26p m ABD PAIN April 13, 2025 12:4 2pm abd pain April 15, 2025 1:38 pm Chief Complaint Admit Date rash March 07, 2025 3:26p m ABD PAIN April 13, 2025 12:4 2pm abd pain April 15, 2025 1:38 pm Hospital FU April 22, 2025 9:33a m Reason for Visit Admit Date Constipation April 22, 2025 9:33a m Epigastric pain April 22, 2025 9:33a m Hx of cholecystectomy April 22, 2025 9:3 3am Loose stools April 22, 2025 9:33a m Nausea & vomiting April 22, 2025 9:33a m Constipation April 30, 2025 12:34 pm Epigastric pain April 30, 2025 12:34 pm Loose stools April 30, 2025 12:34 pm Chief Complaint Admit Date rash March 07, 2025 3:26p m ABD PAIN April 13, 2025 12:4 2pm abd pain April 15, 2025 1:38 pm Hospital FU April 22, 2025 9:33a m TEST May 14, 2025 9:56 am Reason for Visit Admit Date Constipation April 22, 2025 9:33a m Epigastric pain April 22, 2025 9:33a m Hx of cholecystectomy April 22, 2025 9:3 3am Loose stools April 22, 2025 9:33a m Nausea & vomiting April 22, 2025 9:33a m Constipation April 30, 2025 12:34 pm Epigastric pain April 30, 2025 12:34 pm Loose stools April 30, 2025 12:34 pm Acute duodenitis May 14, 2025 9:56 am Loose stools May 14, 2025 9:56 am Additional Source Comments Reason for Visit (unrecogniz [...] Care Teams (unrecognized sec tion and content) Senior Principal Process Engineer Relationship Specialty Start Date End Date Tom Wiggins, DO [address] [place], [place] [phone] PCP - General Family Medicine 01/07/19 Senior Principal Process Engineer Relationship Specialty Start Date End Date Tom Wiggins, DO [address] [place], [place] [id number] PCP - General Family Medicine 01/07/19 Senior Principal Process Engineer Relationship Specialty Start Date End Date Tom Wiggins, DO [address] [place], [place] [phone] PCP - General Family Medicine 01/07/19 Senior Principal Process Engineer Relationship Specialty Start Date End Date Tom Wiggins, DO [address] [place], [place] [phone] PCP - General Family Medicine 01/07/19 Senior Principal Process Engineer Relationship Specialty Start Date End Date Tom Wiggins DO [address] [place] [address] PCP - General 01/07/19 Team Status: Active Member Role Status Dates No Primary Care Physician Primary Care Provider Active Team Status: Inactive Member Role Status Dates Dr. Hanna Regalado DO Emergency Provider Active Start: March 07, 2025 End: March 07, 2025 No Primary Care Physician Primary Care Provider Active Start: March 07, 2025 End: March 07, 2025 Team Status: Inactive Member Role Status Dates Dr. Hanna Regalado , Attending Provider Active Start: March 07, 2025 End: March 07, 2025 Dr. Hanna Schwiger , DO Emergency Provider Active Start: March 07, 2025 End: March 07, 2025 No Primary Care Physician Primary Care Provider Active Start: March 07, 2025 End: March 07, 2025 Team Status: Inactive Member Role Status Dates No Primary Care Physician Primary Care Provider Active Start: April 13, 2025 End: April 13, 2025 Dr. Raphael Cheng MD Emergency Provider Active Sta rt: April 13, 2025 End: April 13, 2025 Team Status: Inactive Member Role Status Dates No Primary Care Physician Primary Care Provider Active Start: April 15, 2025 End: April 15, 2025 Ed Physician Provider Emergency Provider Active Start: April 15, 2025 End: April 15, 2025 Team Status: Active Member Role/Relationship Status Dates No Primary Care Physician Primary Care Provider Active Team Status: Inactive Member Role/Relationship Status Dates Dr. Hanna Regalado DO Attending Provider Active Start: March 07, 2025 End: March 07, 2025 Dr. Hanna Regalado DO Emergency Provider Active Start: March 07, 2025 End: March 07, 2025 No Primary Care Physician Primary Care Provider Active Start: March 07, 2025 End: March 07, 2025 Team Status: Inactive Member Role/Relationship Status Dates No Primary Care Physician Primary Care Provider Active Start: April 13, 2025 End: April 13, 2025 Dr. Raphael Cheng MD Attending Provider Active Sta rt: April 13, 2025 End: April 13, 2025 Dr. Raphael Cheng MD Emergency Provider Active Sta rt: April 13, 2025 End: April 13, 2025 Team Status: Inactive Member Role/Relationship Status Dates No Primary Care Physician Primary Care Provider Active Start: April 15, 2025 End: April 15, 2025 Ed Physician Provider Attending Provider Active Start: April 15, 2025 End: April 15, 2025 Ed Physician Provider Emergency Provider Active Start: April 15, 2025 End: April 15, 2025 Team Status: Inactive Member Role/Relationship Status Dates No Primary Care Physician Primary Care Provider Active Start: April 22, 2025 End: April 22, 2025 No Primary Care Physician Referring Provider Active Start: April 22, 2025 End: April 22, 2025 QAMAR Perrin Attending Provider Active Start: April 22, 2025 End: April 22, 2025 Team Status: Inactive Member Role/Relationship Status Dates No Primary Care Physician Primary Care Provider Active Start: April 30, 2025 End: April 30, 2025 No Primary Care Physician Referring Provider Active Start: April 30, 2025 End: April 30, 2025 Dr. Eder Paniagua , Attending Provider Active Start: April 30, 2025 End: April 30, 2025 Team Status: Active Member Role/Relationship Status Dates No Primary Care Physician Primary Care Provider Active Start: April 30, 2025 No Primary Care Physician Referring Provider Active Start: April 30, 2025 Dr. Eder Paniagua , Attending Provider Active Start: April 30, 2025 Dr. Eder Paniagua , DO Other Provider Active St art: April 30, 2025 Team Status: Inactive Member Role/Relationship Status Dates No Primary Care Physician Primary Care Provider Active Start: May 14, 2025 End: May 14, 2025 No Primary Care Physician Referring Provider Active Start: May 14, 2025 End: May 14, 2025 QAMAR Perrin Attending Provider Active Start: May 14, 2025 End: May 14, 2025 Scheduled Active and Recently Administ ered [...] mL/hr, Administer over 121 Minutes, ONCE, On 08/10/22 at 2150, For 1 dose 2206 (New Bag - Provider: Roxanne Oropeza RN) 0015 (Stopped - Provider: Roxanne Oropeza, JOVANNA) cephALEXin (KEFLEX) capsule 500 mg (COMPLETED) 500 [...] section and content) DATE CREATED AUTHOR 08/16/2022 [facility] DATE CREATED AUTHOR AUTHOR'S ORGANIZ ATION 08/02/2023 [facility] DATE CREATED AUTHOR AUTHOR'S ORGANIZ ATION 05/14/2025 [facility] [place] Goals (unrecognized section and content) Goals may be documented in a n alternate sectionGoals may be documented in an alternate sectionGoals may be documented in an alternate sectionGoals may be documented in an alternate section FOR RECORDS PERTAINING TO PATIENTS [...] BE BASED ON THE PRIMARY CLINICAL RECORDS. [facility]. provides no warranty or guarantee of the accuracy or completeness of information in this document.
[2025-05-15 16:09] LABS: Immunoglobulin A 102 mg/dL (87-352)
== END | disposition home or self-care (01) ==
PROVIDERS: Referring Provider Student in an Organized Health Care Education/Training Program; Visit Provider Student in an Organized Health Care Education/Training Program
DX: R19.5 Other fecal abnormalities (principal); K29.80 Duodenitis without bleeding
CPT/HCPCS: 36415; 82784; 83516; 86255